=== PATIENT | female | born 2005 | race Caucasian/White ===

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

== ENCOUNTER 2024-10-27 14:57 | Outpatient (CLI) | payer OTHER, SELFPAY ==
[2024-10-27 15:31] LABS: Basophils Absolute Auto 0.1 K/mm3 (0.0-0.1); Basophils Percent Auto 0.6 % (0.2-1.2); Eosinophils Absolute Auto 0.1 K/mm3 (0-0.3); Eosinophils Percent Auto 0.6 % (0-4.4); Hematocrit 36.2 % (37.0-47.0); Hemoglobin 12.8 g/dL (12.0-15.0); Immature Granulocyte Absolute 0.18 K/mm3 (0.00-0.031); Immature Granulocyte Percent A 1.7 % (0-0.5); Lymphocytes Absolute Auto 2.53 K/mm3 (0.9-3.2); Lymphocytes Percent Auto 23.7 % (18.3-44.2); Mean Corpuscular HGB Conc 35.4 g/dl (32-36); Mean Corpuscular Hemoglobin 31.8 pg (26-34); Mean Corpuscular Volume 89.8 fl (80-100); Mean Platelet Volume 9.4 fl (7.4-10.4); Monocytes Absolute Auto 0.7 K/mm3 (0.1-0.6); Monocytes Percent Auto 6.4 % (2.6-8.5); Neutrophils Absolute Auto 7.2 K/mm3 (1.3-6.7); Platelet Count Result 331 k/mm3 (150-375); Red Blood Count 4.03 M/mm3 (4.2-5.4); Red Cell Distribution Width 12.5 % (11.5-14.5); White Blood Count 10.7 K/mm3 (4.5-10.0)
--- OUTSIDE RECORDS SUMMARY | 2024-10-27 15:45 | XMS_ITS | Patient Health Summary ---
Author Organization [facility] Address [address] [place] [address] Care Team Providers Care Belt Maker Helper Name Role Phone Unavailable Primary Care Provider Unavailabl e Note from [facility],non-owned Affiliates and Associated Physician Practices is amultiple site organization consisting of ambulatory clinics and hospital sitesin [place], [place], [place] and [place]. This disclosure is being madepursuant to the Care Everywhere program and may not contain all information available regarding this patient. Last updated 18.[facility] [employer] Allergies * Loratadine(Anaphylaxis) -High Criticality Medications * Be aware that medications may not be up to date on this document. Alwaysverify current medications with the patient. * ARIPiprazole (Abilify) 2 MG tablet(Started 05/19/2022) Take 1 (one) tablet by mouth once daily Reasons: MIXED BIPOLAR AFFECTIVE DISORDER 1 refill by 05/18/2023 Active Problems Problem Noted Date Diagnosed Date Major depressive disorder, r emission status unspecified, unspecified whether recurrent 05/15/2022 Social History Tobacco Use Types Packs/Day Years Used Date Smoking Tobacco: Never Smokeless Tobacco: Never Alcohol Use Standard Drinks/Week Comments Never 0 (1 standard drink = 0.6 oz pur e alcohol) AUDIT-C Answer Date Recorded Q1: How often do you have a drink containing alcohol? Never 05/15/2022 Q2: How many drinks containi ng alcohol do you have on a typical day when you are drinking? Patient does not drink Q3: How often do you have si x or more drinks on one occasion? Never 05/15/2022 PHQ-2 Answer Date Recorded PHQ2 TOTAL SCORE 3 05/13/2022 Sex and Gender Information Value Date Recorded Sex Assigned at Not on file Gender Identity Not on file Sexual Orientation Not on file Last Filed Vital Signs Vital Sign Reading Time Taken Comments Blood Pressure 109/64 05/18/2022 4:12 PM CDT Pulse 59 05/18/2022 4:12 PM CDT Temperature 36.4 ??C (97.5 ??F) 05/18/2022 4:12 PM CD T Respiratory Rate 16 05/18/2022 4:12 PM CDT Oxygen Saturation 98% 05/18/2022 4:12 PM CDT Inhaled Oxygen Concentration - - Weight 55.8 kg (123 lb) 05/16/2022 2:00 PM CDT Height 158.8 cm (5' 2.5 ) 05/16/2022 2:00 PM CDT Body Mass Index 22.14 05/16/2022 2:00 PM CDT Procedures * CARDIAC RHYTHM STRIP ORDER(Performed 08/12/2022) * SYPHILIS ANTIBODY CASCADING REFLEX(Performed 2022) * HIV-1 HIV-2 ANTIBODY + HIV P24 AG PANEL(Performed 2022) * TRICHOMONAS VAGINALIS AMPLIFIED PROBE(Performed 05/16/2022) * CHLAMYDIA + GC AMPLIFIED PROBE(Performed 05/16/2022) * URINALYSIS REFLEX TO MICROSCOPIC NO CULTURE(Performed 05/16/2022) * LIPID PROFILE(Performed 05/16/2022) * HEMOGLOBIN A1C(Performed 05/16/2022) * COMPREHENSIVE METABOLIC PANEL(Performed 05/16/2022) * CBC W AUTO DIFFERENTIAL(Performed 05/16/2022) * EKG 15-LEAD(Performed 05/13/2022) Performed for Ingestion of toxic substance * HCG URINE QUALITATIVE - POCT (IP) INTERFACED(Performed 05/13/2022) * URINE DRUG SCREEN IMMUNOASSAY(Performed 05/13/2022) * DRUG SCREEN TOX COMPREHESIVE PANEL(Performed 05/13/2022) * COMPREHENSIVE METABOLIC PANEL(Performed 05/13/2022) * SALICYLATE LEVEL BLOOD(Performed 05/13/2022) * ALCOHOL ETHYL BLOOD(Performed 05/13/2022) * ACETAMINOPHEN LEVEL(Performed 05/13/2022) * HCG URINE QUAL POCT NOTIFICATION(Performed 05/13/2022) Results * CARDIAC RHYTHM STRIP ORDER (08/12/2022 9:01 PM RESEARCH ASST) Narrative 08/12/2022 9:01 PM RESEARCH ASST Ordered by an unspecified provider. Scanned Document CARDIAC SERVICES ORD ERABLES * SYPHILIS ANTIBODY CASCADING REFLEX (2022 6:54 AM CDT) Treponema pallidum Antibody Non Reactive Non Reactive 2022 10:31 AM CDT [facility] Comment: No Laboratory evidence of syphilis infection. ?? Note: ??Circulating antibodies may be low or undetectable in early infection. ??If recent exposure is suspected, re-draw sample in 2-4 weeks and repeat testing. Blood BLOOD SPECIMEN / Unknown Venipuncture / Unknown 2022 6:54 AM CDT 2022 8:58 AM CDT Cinthya Julian MD LAB - SEROLOGY ORDNakul BRUMFIELD Performing Organization Address City/[facility]/ZIP Co de Phone Number [facility] [address] [place] [address] * HIV-1 HIV-2 ANTIBODY + HIV P24 AG PANEL (2022 6:54 AM CDT) HIV1/2 Ab + P24 Ag Non Reactive Non Reactive 2022 3:23 PM CDT [facility] Blood BLOOD SPECIMEN / Unknown Venipuncture / Unknown 2022 6:54 AM CDT 2022 8:59 AM CDT Narrative [facility] - 2022 3:23 PM CDT No Laboratory evidence of HIV infection. Cinthya Julian MD LAB - CHEMISTRY ORD ERABLES [facility] [address] [place] [address] * TRICHOMONAS VAGINALIS AMPLIFIED PROBE (05/16/2022 8:45 PM CDT) Trichomonas vaginalis Amplified Probe Negative Negative 2022 1:15 PM CDT [facility]CRO[facility] Microbiology URINE / Unknown 05/16/2022 8 :45 PM CDT 05/16/2022 8:45 PM CDT Narrative [facility]CRO[facility] - 2022 1:15 PM CDT This test was developed and its performance characteristics determined by the [facility], [facility]. Urine specimens tested by the [facility] have not been cleared or approved by the U.S. Food and Drug Administration (FDA). The laboratory is regulated under the Clinical Laboratory Improvement Amendments (CLIA) as qualified to perform high-complexity testing. This test is used for clinical purposes. It should not be regarded as investigational or for research. Results based on detection/no detection of ribosomal RNA by amplified method. Cinthya Julian MD LAB - MICROBIOLOGY ORDERABLES Performing Organization Address City/[facility]/ZIP Co de Phone Number [facility]CROBIOLOGY [address] [place] [address], [facility] [phone] * CHLAMYDIA + GC AMPLIFIED PROBE (STL) (05/16/2022 8:45 PM CDT) Chlamydia Amplified Probe Negative Negative 2022 1:15 PM CDT [facility]CRO[facility] GC Amplified Probe Negative Negative 2022 1:15 PM CDT [facility] Microbiology URINE / Unknown 05/16/2022 8 :45 PM CDT 05/16/2022 8:45 PM CDT Narrative [facility]CROBIOLOG[facility] - 2022 1:15 PM CDT Results based on detection/no detection of ribosomal RNA by amplified method. Cinthya Julian MD LAB - MICROBIOLOGY ORDERABLES Performing Organization Address City/[facility]/ZIP Co de Phone Number [facility]CRO[facility] [address] [place] [address], [facility] [phone] * (ABNORMAL) URINALYSIS REFLEX TO MICROSCOPIC NO CULTURE (05/16/2022 12:50 PM CDT) Color UA Viviane(A) Straw, Yellow 05/16/2022 2:38 PM CDT [facility] Clarity UA Turbid(A) Clear 05/16/2022 2:38 PM CDT [facility] Glucose UA Negative Negative 05/16/2022 2:38 PM CDT [facility] Bilirubin UA Negative Negative 05/16/2022 2:38 PM CDT [facility] Ketone UA Trace(A) Negative 05/16/2022 2:38 PM CDT [facility] Specific [place] UA 1.024 1.005 - 1.030 05/16/2022 2:38 PM CDT [facility] Blood UA Negative Negative 05/16/2022 2:38 PM CDT [facility] pH UA 5.0 5.0 - 8.0 pH 05/16/2022 2:38 PM CDT [facility] Protein UA Negative Negative 05/16/2022 2:38 PM CDT [facility] Urobilinogen UA Negative Negative mg/dL 05/16/2022 2:38 PM CDT [facility] Nitrite UA Negative Negative 05/16/2022 2:38 PM CDT [facility] Leukocyte UA Negative Negative 05/16/2022 2:38 PM CDT [facility] Urine Microscopy Urine microscopy not indicated 05/16/2022 2:38 PM CDT [facility] Urine URINE SPECIMEN OBTAINED BY CLEAN CATCH PROCEDURE / Unknown Collection / Unknown 05/16/2022 12:50 PM CDT 05/16/2022 2:31 PM CDT Narrative [facility] - 05/16/2022 2:38 PM CDT Jaylen Chaves MD LAB - URINA LYSIS ORDERABLES [facility] [address] [place] [address] * HEMOGLOBIN A1C (05/16/2022 7:32 AM CDT) Hemoglobin A1c 5.0 <5.7 % 05/16/2022 10:24 AM CDT [facility] Estimated Average Glucose 97 mg/dL 05/16/2022 10:24 AM CDT [facility] Blood BLOOD SPECIMEN / Unknown Venipuncture / Unknown 05/16/2022 7:32 AM CDT 05/16/2022 8:58 AM CDT [facility] - 05/16/2022 10:24 AM CDT HbA1c Interpretation: Normal: < 5.7% Pre-diabetes: 5.7-6.4% Diabetes: Equal to or greater than 6.5% Test results diagnostic of diabetes should be repeated for confirmation. Treatment target values recommended by ADA and other clinical organizations should be used to evaluate metabolic control in patients. This test should not replace glucose testing for patients with Type 1 diabetes, pediatric patients, or women. ??Falsely low HbA1c results may be observed in patients with clinical conditions that shorten erythrocyte life span or decrease mean erythrocyte age such as the presence of unstable hemoglobin variants, elevated hemoglobin F level or other causes of hemolytic anemia. ??HbA1c may not accurately reflect glycemic control when clinical conditions that affect erythrocyte survival are present. ??Severe Iron deficiency anemia may yield falsely high results. ??Hemoglobin A1c assay should not be used to diagnose or monitor diabetes in patients with malignancy, recent blood transfusion, chronic kidney or liver disease. ?? This method may yield falsely low results when hemoglobin (HbF) exceeds 5% in the specimen. The [employer] assay for the measurement of HbA1c is a National Glycohemoglobin Standardization Program (NGSP) certified method. Jaylen Chaves MD LAB - CHEMI STRY ORDERABLES [facility] [address] [place], [place] [id number] * (ABNORMAL) CBC W AUTO DIFFERENTIAL (05/16/2022 7:32 AM CDT) [facility] WBC 8.9 4.5 - 11.0 x10E9/L 05/16/2022 10:15 AM CDT [facility] WBC Corrected 05/16/2022 10:15 AM CDT [facility] RBC 4.81 4.10 - 5.10 x10E12/L 05/16/2022 10:15 AM CDT [facility] Hemoglobin 14.4 12.0 - 16.0 gm/dL 05/16/2022 10:15 AM CDT [facility] Hematocrit 42.5 36.0 - 47.0 % 05/16/2022 10:15 AM CDT [facility] MCV 88.4 78.0 - 102.0 fl 05/16/2022 [facility] MCH 29.9 25.0 - 35.0 pg 05/16/2022 10:15 AM [facility] MCHC 33.9 31.0 - 37.0 gm/dL 05/16/2022 10:15 AM [facility] Platelet Count 419(H) 100 - 400 x10E9/L 05/16/2022 10:15 AM [facility] RDW-CV 12.0 11.5 - 14.0 % 05/16/2022 10:15 AM [facility] MPV 9.7(H) 6.0 - 9.5 fl 05/16/2022 10:15 AM [facility] Neutrophils % 39.3 31.0 - 78.0 % 05/16/2022 10:15 AM [facility] Lymphocytes % 50.2 13.0 - 54.0 % 05/16/2022 10:15 AM [facility] Monocytes % 8.5 4.0 - 13.0 % 05/16/2022 10:15 AM [facility] Eosinophils % 1.0 0.0 - 8.0 % 05/16/2022 10:15 AM [facility] Basophils % 0.8 % 05/16/2022 10:15 AM [facility] Immature Granulocytes 0.2 % 05/16/2022 10:15 AM [facility] Neutrophil Absolute 3.50 1.4 - 8.58 x10E9/L 05/16/2022 10:15 AM [facility] Lymphocytes Absolute 4.48 0.59 - 5.94 x10E9/L 05/16/2022 10:15 AM [facility] Monocytes Absolute 0.76 0.18 - 1.43 x10E9/L 05/16/2022 10:15 AM [facility] Eosinophils Absolute 0.09 0 - 0.88 x10E9/L 05/16/2022 10:15 AM [facility] Basophils Absolute 0.07 0 - 0.22 x10E9/L 05/16/2022 10:15 AM [facility] Immature Granulocytes Absolute 0.02 0 - 0.11 x10E9/L 05/16/2022 10:15 AM [facility] nRBC Auto 0 /100 WBC 05/16/2022 10:15 AM [facility] Blood BLOOD SPECIMEN / Unknown Venipuncture / Unknown 05/16/2022 7:32 AM CDT 05/16/2022 8:58 AM CDT Jaylen Chaves MD LAB - HEMAT OLOGY ORDERABLES [facility] [address] [place] [address] * (ABNORMAL) COMPREHENSIVE METABOLIC PANEL (05/16/2022 7:32 AM CDT) Only the most recent of2 resultswithin the time period is included. Glucose 77 70 - 105 mg/dL 05/16/2022 10:18 AM [facility] Sodium 140 136 - 145 mmol/L 05/16/2022 10:18 AM [facility] Potassium 3.8 3.5 - 5.1 mmol/L 05/16/2022 10:18 AM [facility] Chloride 103 98 - 107 mmol/L 05/16/2022 10:18 AM [facility] CO2 23 20 - 28 mmol/L 05/16/2022 10:18 AM [facility] Calcium 10.2 8.4 - 10.4 mg/dL 05/16/2022 10:18 AM [facility] Anion Gap 14 8 - 18 mmol/L 05/16/2022 10:18 AM [facility] BUN 8 7 - 18.7 mg/dL 05/16/2022 10:18 AM [facility] Creatinine 0.81 0.57 - 1.11 mg/dL 05/16/2022 10:18 AM [facility] Alkaline Phosphatase 73(L) 100 - 390 U/L 05/16/2022 10:18 AM [facility] ALT 10 0 - 61 U/L 05/16/2022 10:18 AM [facility] AST 20 5 - 34 U/L 05/16/2022 10:18 AM CDT [facility] Protein Total 8.3 6.4 - 8.3 gm/dL 05/16/2022 10:18 AM CDT [facility] Albumin 4.8 3.4 - 5.0 gm/dL 05/16/2022 10:18 AM CDT [facility] Bilirubin Total 0.8 0.2 - 1.2 mg/dL 05/16/2022 10:18 AM CDT [facility] eGFR by CKD-EPI 10:18 AM CDT [facility] Comment:eGFR calculations ar e not performed for children <18yrs old. Blood BLOOD SPECIMEN / Unknown Venipuncture / Unknown 05/16/2022 7:32 AM CDT 05/16/2022 9:00 AM CDT Jaylen Chaves MD LAB - CHEMI STRY ORDERABLES [facility] [address] [place] [address] * LIPID PROFILE (05/16/2022 7:32 AM CDT) Cholesterol 160 <200 mg/dL 05/16/2022 10:25 AM CDT [facility] Triglycerides 58 <150 mg/dL 05/16/2022 10:25 AM CDT [facility] HDL Cholesterol 48 >40 mg/dL 2 10:25 AM CDT [facility] LDL Calculated 100 <130 mg/dL 05/16/2022 10:25 AM CDT [facility] VLDL Calculated 12 <=30 mg/dL 2 10:25 AM CDT [facility] Chol HDL Ratio 3.3 <4.5 05/16/2022 10:25 AM CDT [facility] LDL/HDL Ratio 2.1 <5.0 05/16/2022 10:25 AM CDT [facility] Blood BLOOD SPECIMEN / Unknown Venipuncture / Unknown 05/16/2022 7:32 AM CDT 05/16/2022 9:01 AM CDT Jaylen Chaves MD LAB - CHEMI STRY ORDERABLES [facility] [address] [place] [address] * EKG 15-LEAD (05/13/2022 3:51 PM CDT) Pathologist [facility] Ventricular Rate 51 BPM CG MUSE Atrial Rate 51 BPM CG MUSE P-R Interval 142 ms CG MUSE QRS Duration ms 84 ms CG MUSE Q-T Interval ms 464 ms CG MUSE QTC Calculation (Bezet) 427 ms CG MUSE Calculated P [place] 27 degrees CG MUSE Calculated R [place] 70 degrees CG MUSE Calculated T [place] 41 degrees CG MUSE Interpretation EKG Sinus bradycardia with sinus arrhythmia No previous ECGs available Confirmed by MD Danyel, Valencia ([id number]) on 05/14/2022 10:29:25 AM CG MUSE 05/13/2022 3:51 PM CDT 05/14/2022 10:29 AM CDT Lucita French MD ECG ORDERABLES Performing Organization Address City/[facility]/ZIP Co de Phone Number CG MUSE * HCG URINE QUALITATIVE - POCT (IP) INTERFACED (05/13/2022 3:17 PM CDT) Pathologist [facility] HCG Qual Urine Negative Negative 05/13/2022 3:28 PM CDT [facility] Urine URINE / Unknown 05/13/2022 3 :17 PM CDT 05/13/2022 3:28 PM CDT Lucita French MD LAB - POINT OF C ARE ORDERABLES [facility] [address] [place] [id number] * DRUG SCREEN TOX COMPREHESIVE URINE PANEL (05/13/2022 3:13 PM CDT) [facility] Drug Screen Urine Comprehensive Panel 05/15/2022 11:55 AM CDT [facility]XIC[facility]Y LABORATORY Urine URINE / Unknown Collection / Unknown 05/13/2022 3:13 PM CDT 05/13/2022 3:23 PM CDT Lucita French MD LAB - URINE CHEM ISTRY ORDERABLES [facility] TOXICOLOGY [facility]ORATORY ATTN Dr Cooper Rucker [address] * (ABNORMAL) URINE DRUG SCREEN IMMUNOASSAY (05/13/2022 3:13 PM CDT) [facility] Amphetamines Screen Urine Negative Negative : < 1000 ng/mL 05/13/2022 3:46 PM CDT [facility] Barbiturates Screen Urine Negative Negative : < 200 ng/mL 05/13/2022 3:46 PM CDT [facility] Benzodiazepine Screen Urine Negative Negative : < 200 ng/mL 05/13/2022 3:46 PM CDT [facility] Opiates Urine Negative Negative : < 300 ng/mL 05/13/2022 3:46 PM [facility] Cocaine Metabolites Urine Negative Negative : < 300 ng/mL 05/13/2022 3:46 PM CDT [facility] Phencyclidine Screen Urine Negative Negative : < 25 ng/ml 05/13/2022 3:46 PM [facility] Cannabinoids Screen Urine Positive(A) Negative : <50 ng/mL 05/13/2022 3:46 PM T [facility] Comment:Positive urine canna binoids (THC) screening results should be confirmed by another generally accepted non-immunological method such as gas chromatography or mass spectrometry. Methadone Screen Urine Negative Negative : < 300 ng/mL 05/13/2022 3:46 PM CDT [facility] Fentanyl Screen Urine Negative Negative : <1.5 ng/mL 05/13/2022 3:46 PM [facility] Urine URINE / Unknown Collection / Unknown 05/13/2022 3:13 PM CDT 05/13/2022 3:23 PM CDT Narrative [facility] - 05/13/2022 3:46 PM CDT The Urine Toxicology Screening Panel does not screen for Propoxyphene, Meprobamate, Carisoprodol, Trazodone, [id number]-cctlcmr medications and/or volatiles (Acetone, Isopropanol, Methanol or Ethylene Glycol). Ethanol, Salicylate, Acetaminophen, Tricyclic Antidepressants and several therapeutic drugs may be individually assayed in serum or plasma specimen. Toxicology testing by the [facility] is an aid to medical diagnosis and treatment of patients. No documented chain of custody was maintained. Results are intended to be used for clinical purposes only. ? Lucita French MD LAB - URINE CHEM ISTRY ORDERABLES Performing Organization Address City/State/[facility] Co de Phone Number [facility] [address] [place] [phone], [facility] [phone] * ALCOHOL ETHYL BLOOD (05/13/2022 3:01 PM CDT) Ethanol (mg/dL) <10 <10 mg/dL 3:37 PM CDT [facility] Ethanol Calculated (g/dL) <0.010 <=0.010 g/dL 05/13/2022 3:37 PM CDT [facility] Blood BLOOD SPECIMEN / Unknown Venipuncture / Unknown 05/13/2022 3:01 PM CDT 05/13/2022 3:11 PM CDT Narrative [facility] - 05/13/2022 3:37 PM CDT Ethanol Interp <10: None Detected. Depression of BLAST FURNACE BLOWER: >100 mg/dl Potentially Critical: >250 mg/dl Potentially Fatal >400 mg/dl Ethanol in the patient's blood will contribute to the osmolar gap. Ethanol's contribution to the osmolar gap can be estimated by dividing the concentration of ethanol in mg/dL by 4.6. This test is for clinical use only and does not equal a HI for legal purposes. Lucita French MD LAB - CHEMISTRY ORDERABLES Performing Organization Address [facility]/ZIP Co de Phone Number [address] [phone], [facility] [phone] * (ABNORMAL) SALICYLATE LEVEL BLOOD (05/13/2022 3:01 PM CDT) Salicylate <5(L) 15 - 30 mg/dL 05/13/2022 3:37 PM CDT [facility] Blood BLOOD SPECIMEN / Unknown Venipuncture / Unknown 05/13/2022 3:01 PM CDT 05/13/2022 3:11 PM CDT [facility] - 05/13/2022 3:37 PM CDT This test is not intended for use with low-dose aspirin therapy. Most patients on low-dose aspirin for cardiovascular prophylaxis will have serum concentrations near or below the lower limit of the analytical range. Lucita French MD LAB - CHEMISTRY ORDERABLES Performing Organization Address [facility] Co de Phone Number [address] [phone], [facility] [phone] * ACETAMINOPHEN LEVEL (05/13/2022 3:01 PM CDT) Acetaminophen <3.0 <3.0 ug/mL 05/13/2022 3:37 PM CDT [facility] Blood BLOOD SPECIMEN / Unknown Venipuncture / Unknown 05/13/2022 3:01 PM CDT 05/13/2022 3:11 PM CDT [facility] - 05/13/2022 3:37 PM CDT Acetaminophen Toxicity Levels (Hours Post Ingestion): ? >200 ug/mL at 4 hours ? >100 ug/mL at 8 hours ? >50 ug/mL at 12 hours For acute ingestion, please refer to Acetaminophen nomogram to determine the risk of toxicity based on time since ingestion and acetaminophen level (see link provided). Note the nomogram disclaimer. WARNING: Assessing the potential toxicity of an acetaminophen level on a standard risk nomogram must take into consideration many factors including any uncertainty of the time since ingestion or the possibility of other medications that may alter the peak level. Contact the [facility] at or reserved for healthcare professionals to assist you in evaluating potentially toxic acetaminophen levels. Lucita French MD LAB - CHEMISTRY ORDERABLES Performing Organization Address City/[facility]/ZIP Co de Phone Number [facility] [address] [place] [address], [facility] [phone] * HCG URINE QUAL POCT NOTIFICATION (05/13/2022 2:43 PM CDT) Comment Notification Label Only - See Separate Report 05/13/2022 4:03 PM CDT [facility] Urine URINE / Unknown 05/13/2022 2 :43 PM CDT 05/13/2022 2:44 PM CDT Lucita French MD LAB - URINALYSIS ORDERABLES Performing Organization Address [facility]/ZIP Co de Phone Number [facility] [place] [address]
--- OUTSIDE RECORDS SUMMARY | 2024-10-27 15:45 | XMS_ITS | Data Portability ---
Author Organization [facility] Address [address] [place] [address] [place] [address] Assessment No assessment recorded. Plan of Treatment Reminders Order Date Submit Date Provider Last Modified By Organization Details Last Modified Time Details Appointments None record ed. Lab None record ed. Referral None record ed. Procedures None record ed. Surgeries None record ed. Imaging None record ed. Medication Orders None record ed. Patient TargetsNo targets recorded. Patient InstructionsNo instructions recorded. Reason for Referral None Reported. Medical Equipment None Reported. Medications Name Sig Start Date Stop Date Status Note LastModified by Organization Details LastModified Time metronidazole 500 mg tablet TAKE 1 TABLET BY MOUTH EVERY 12 HOURS active Not Available Not Available No t Available metoclopramide 5 mg tablet TAKE 1 TABLET BY MOUTH DAILY active Not Available Not Available No t Available escitalopram 10 mg tablet TAKE 1 TABLET BY MOUTH DAILY IN THE MORNING active Not Available Not Available No t Available Vitals None Recorded Social History None recorded. Functional Status None recorded. Mental Status None recorded. Family History Nothing Reported. Medical History No medical history recorded. Gynecological HistoryNo gynecological history recorded. Obstetrics History GPAL:G 0 P 0 0 0 0 Past Encounters Encounter ID Performer Location Encounter Start Date Encounter Closed Date Diagnosis/Indication Diagnosis SNOMED-CT Code Diagnosis ICD10 Code Diagnosis Note [id number] MARCI Valencia [facility]wick [address] [address] 09/30/2024 17:00:48 10/05/2024 15:45:07 Left without being seen [id number] 9102 Z53.21 Health Concerns Section Related Observation LastModified by Organization Detai ls LastModified Time None Recorded Concern Status LastModified by Organization Details LastModified Time None Recorded Advance Directives Directive None Recorded Payers Encounter Date Sequence Insurance Name Policy Number Policy Lamar Covered Member ID Lamar Member ID Guarantor Name 09/30/2024 1 [facility] 03/29/21 (MEDICAID REPLACEMENT - HMO) Sarah Kelly [id number] Sarah Kelly OBGyn Episode No OBEpisode recorded.
--- OUTSIDE RECORDS SUMMARY | 2024-10-27 15:46 | XMS_ITS | Referral Summary ---
Author Organization [facility] Address [address] [place] [address] Care Team Providers Care Gig Tender Name Role Phone Unavailable Primary Care Provider Unavailabl e Source Comments [facility],non-owned Affiliates and Associated Physician Practices is amultiple site organization consisting of ambulatory clinics and hospital sitesin [place], [place], [place] and [place]. This disclosure is being madepursuant to the Care Everywhere program and may not contain all information available regarding this patient. Last updated 18.[facility] Allergies Active Allergy Reactions Criticality Noted Date Comments Loratadine Anaphylaxis High 05/13/2022 Medications * Be aware that medications may not be up to date on this document. Alwaysverify current medications with the patient. Medication Sig Dispensed Refills Start Date End Date Status ARIPiprazole (Abilify) 2 MG tabletIndications:Mi xed Bipolar Affective Disorder Take 1 (one) tablet by mouth once daily Reasons: MIXED BIPOLAR AFFECTIVE DISORDER 30 tablet 1 05/19/2022 Active Active Problems Problem Noted Date Diagnosed Date Major depressive disorder, r emission status unspecified, unspecified whether recurrent 05/15/2022 Immunizations Name Administration Dates Next Due Covid Pfizer primary Monoval ent 12+ yr 0.3ml 2022(Deferred: Consent needed) Social History Tobacco Use Types Packs/Day Years [...] Mass Index 22.14 05/16/2022 2:00 PM CDT Functional Status Functional Status Response Date of Assess ment Is person deaf or have serious hearing difficult y? No 05/18/2022 Is person blind or have serious difficulty seein g? No 05/18/2022 Does person have serious dif ficulty walking/climbing stairs? No 05/18/2022 Does person have difficulty dressing/bathing? No 05/18/2022 Does person have difficulty doing errands alone? No 05/18/2022 Cognitive Status Response Date of Assessm ent Does person have difficulty concentrating/remembering/making decisions? No 05/18/2022 Plan of Treatment Not on file Procedures Procedure Name Priority Date/Time Associated Diagnosis Comments HIV-1 HIV-2 ANTIBODY + HIV P24 AG PANEL AM Draw 2022 6:54 AM CDT CHLAMYDIA + GC AMPLIFIED PROBE Routine 05/16/2022 8:45 PM CDT from Last 3 Months or Most Recently Relevant to Health Maintenance Results * HIV-1 HIV-2 ANTIBODY + HIV P24 AG PANEL (2022 6:54 AM CDT) HIV1/2 Ab + P24 Ag Non Reactive Non Reactive 2022 3:23 PM CDT [facility] Blood BLOOD SPECIMEN / Unknown Venipuncture / Unknown 2022 6:54 AM CDT 2022 8:59 AM CDT Narrative [facility] - 2022 3:23 PM CDT No Laboratory evidence of HIV infection. Cinthya Julian MD LAB - CHEMISTRY ORD ERABLES [facility] [address] [place] [address] * CHLAMYDIA + GC AMPLIFIED PROBE (STL) (05/16/2022 8:45 PM CDT) [facility] Chlamydia Amplified Probe Negative Negative 2022 1:15 PM CDT [facility] GC Amplified Probe Negative Negative 2022 1:15 PM CDT [facility] Microbiology URINE / Unknown 05/16/2022 8 :45 PM CDT 05/16/2022 8:45 PM CDT Narrative [facility] - 2022 1:15 PM CDT Results based on detection/no detection of ribosomal RNA by amplified method. Cinthya Julian MD LAB - MICROBIOLOGY ORDERABLES Performing Organization Address City/[facility]/ZIP Co de Phone Number [facility] [address] [place] [address], [facility] [phone] from Last 3 Months or Most Recently Relevant to Health Maintenance Advance Directives * Full Code (Latest Code Status on File) Date Activated Date Inactivated Comments 05/15/2022 2:16 PM 05/18/2022 8:59 PM
--- OUTSIDE RECORDS SUMMARY | 2024-10-27 15:46 | XMS_ITS | Clinical Summary ---
Author Organization [facility] Address [address] [place] [address] Care Team Providers Care Flagger Name Role Phone Unavailable Primary Care Provider Unavailabl e Social History Tobacco Use Types Packs/Day Years Used Date Smoking Tobacco: Never Assessed Comments Unknown Sex and Gender Information Value Date Recorded Sex Assigned at Not on file Legal Sex Female 2:04 PM CDT Gender Identity Not on file Sexual Orientation Not on file Plan of Treatment Health Maintenance Due Date Last Done Comments Hepatitis C Virus (HCV) Screening 2004 TdaP Immunization 2004 Human Papillomavirus (HPV) Immunization (1 - 3-dose series) 2019 Meningococcal B Immunization (1 of 2 - Standard) 2020 Hepatitis B Immunization (1 of 3 - 19+ 3-dose series) 2023 Influenza Immunization (#1) 2024 SARS-COV-2 Immunization ( - season) 2024 Respiratory Syncytial Virus (RSV) Immunization (Adult) (1 - 1-dose 75+ series) 2079 Meningococcal Immunization (ACWY) Aged Out No longer eligible based on patient's age to complete this topic Pneumococcal Immunization Combined Aged Out No longer eligible based on patient's age to complete this topic Rotavirus Immunization Aged Out No lo nger eligible based on patient's age to complete this topic
--- OUTSIDE RECORDS SUMMARY | 2024-10-27 15:46 | XMS_ITS | Clinical Summary ---
Author Organization [facility] [employer] Address [address] [place] [address] Care Team Providers Care Unified Communications Engineer Name Role Phone Unavailable Primary Care Provider Unavailabl e Source Comments [facility] [employer],non-owned Affiliates and Associated Physician Practices is amultiple site organization consisting of ambulatory clinics and hospital sitesin [place], [place], [place] and [place]. This disclosure is being madepursuant to the Care Everywhere program and may not contain all information available regarding this patient. Last updated 18.[facility] [employer] Allergies Active Allergy Reactions Criticality Noted Date [...] Mass Index 22.14 05/16/2022 2:00 PM CDT Plan of Treatment Health Maintenance Due Date Last Done Comments HPV VACCINE (1 - 3-dose series) 2019 MENINGOCOCCAL (Group B) VACCINE (1 of 2 - Standard) 2020 HEPATITIS C SCREENING 05/13/2022 CHLAMYDIA/GONORRHEA SCREENING 05/16/2023 05/16/2022 DTAP/TDAP/TD VACCINES (1 - Tdap) 2023 HEPATITIS B VACCINE (1 of 3 - 19+ 3-dose series) 2023 COVID-19 VACCINE (1 - 2023-2 5 season) 2024 INFLUENZA VACCINE (#1) 2024 DEPRESSION SCREENING 09/29/2024 05/15/2022, 05/13/2022 ZOSTER VACCINE (1 of 2) 2054 HIV SCREENING Completed 2022 HIB VACCINE Aged Out No longer eligi ble based on patient's age to complete this topic MENINGOCOCCAL VACCINE Aged Out No joi yvonne eligible based on patient's age to complete this topic PNEUMOCOCCAL VACCINE Aged Out No long er eligible based on patient's age to complete this topic Procedures Procedure Name Priority Date/Time Associated Diagnosis Comments HIV-1 HIV-2 ANTIBODY + HIV P24 AG PANEL AM Draw 2022 6:54 AM CDT CHLAMYDIA + GC AMPLIFIED PROBE Routine 05/16/2022 8:45 PM CDT from Last 3 Months or Most Recently Relevant to Health Maintenance Results * HIV-1 HIV-2 ANTIBODY + HIV P24 AG PANEL (2022 6:54 AM CDT) Pathologist [facility] HIV1/2 Ab + P24 Ag Non Reactive Non Reactive 2022 3:23 PM CDT [facility] Blood BLOOD SPECIMEN / Unknown Venipuncture / Unknown 2022 6:54 AM CDT 2022 8:59 AM CDT Narrative [facility] - 2022 3:23 PM CDT No Laboratory evidence of HIV infection. Cinthya Julian MD LAB - CHEMISTRY ORD ERABLES Performing Organization Address City/[facility]/ZIP Co de Phone Number [facility] [address] [place] [address] * CHLAMYDIA + GC AMPLIFIED PROBE (STL) (05/16/2022 8:45 PM CDT) [facility] Chlamydia Amplified Probe Negative Negative 2022 1:15 PM CDT [facility] GC Amplified Probe Negative Negative 2022 1:15 PM CDT [facility] Microbiology URINE / Unknown 05/16/2022 8 :45 PM CDT 05/16/2022 8:45 PM CDT Narrative [facility] - 2022 1:15 PM CDT Results based on detection/no detection of ribosomal RNA by amplified method. Cinthya Julian MD LAB - MICROBIOLOGY ORDERABLES [facility] [address] [place] [address], [facility] [phone] from Last 3 Months or Most Recently Relevant to Health Maintenance Advance Directives * Full Code (Latest Code Status on File) Date Activated Date Inactivated Comments 05/15/2022 2:16 PM 05/18/2022 8:59 PM
[2024-10-27 16:37] LABS: HIV 1/2 Ab P24 Ag Result Negative (Negative)
[2024-10-27 17:55] LABS: Hepatitis B Surface Antigen Negative (Negative); Rubella IgG Antibody 50.9 IU/ML
[2024-10-28 11:14] LABS: Rapid Plasma Reagin Non-Reactive (NonReactive)
[2024-10-29 03:29] LABS: CMV IgG Antibody >10.00 U/mL; Varicella IgG Antibody 5.36 S/CO
== END 2024-10-27 14:58 | disposition home or self-care (01) ==
LOC: ANHLAB 14:59
PROVIDERS: PCP Internal Medicine; Visit Provider Student in an Organized Health Care Education/Training Program
DX: N94.89 Other specified conditions associated with female genital organs and menstrual cycle (principal)
CPT/HCPCS: 36415; 85025; 85027; 86592; 86644; 86703; 86747; 86762; 86787; 86850; 86900; 86901; 87086; 87186; 87340; G0432

== ENCOUNTER 2025-01-26 10:42 | Emergency (ER) | payer OTHER, SELFPAY ==
[2025-01-26] VITALS (7 sets, daily range): BP systolic 103–128; BP diastolic 59–80; PULSE 68–90; RESP 16–20; TEMP 36.2; O2SAT 98–100
--- NOTE | ~2025-01-26 | XR_ITS ---
EXAMINATION: XR chest 2V DATE: 01/26/2025 12:08 INDICATION: Couple episodes TECHNIQUE: PA and lateral views of the chest were obtained. COMPARISON: None FINDINGS: The lungs are clear with no focal airspace opacities, pulmonary edema, pleural effusion or pneumothor ax. The cardiomediastinal silhouette is normal. Mild lower thoracic levocurvature with mild to modera te midthoracic spondylosis IMPRESSION: 1. No acute cardiopulmonary disease. Reviewed, dictated and finalized at location B.
--- NOTE | ~2025-01-26 | CT_ITS ---
History: Syncope PROCEDURE: CT head without contrast. COMPARISON: None TECHNIQUE: Axial imaging of the head performed from the skull base to the vertex without IV contrast. Sagittal a nd coronal reformations obtained. DLP: 530 mGy-cm FINDINGS: The ventricles are normal in size, shape and position. There is no mass, mass effect or midline shift. There is no abnormal extra-axial fluid collection or intracranial hemorrhage. Visualized paranasal sinuses are clear. The mastoid air cells are well aerated. No acute displaced fractures within the overlying cranium. Impression: No acute intracranial hemorrhage or suspicious mass effect. Reviewed, dictated and finalized at location A. Impression: No acute intracranial hemorrhage or suspicious mass effect.
--- NOTE | 2025-01-26 10:53 | ECG_ITS ---
Test Date: 2025-01-26 11:35:09 Measurements Intervals [facility] Rate: 74 P: 52 NM: 153 QRS: 69 QRSD: 82 T: 22 QT: 386 QTc: 429 Interpretive Statements SINUS RHYTHM POSSIBLE LEFT ATRIAL ENLARGEMENT CANNOT R/O SEPTAL INFARCT, AGE INDETERMINATE BORDERLINE T WAVE ABNORMALITY- ANT/INF LEADS BASELINE ARTIFACT- I, III, AVL ABNORMAL ECG No previous ECG available for comparison Electronically Signed On 01-26-2025 12:04:01 CDT by Zane Cramer D.O.
[2025-01-26 11:44] LABS: Basophils Absolute Auto 0.1 K/mm3 (0.0-0.1); Basophils Percent Auto 0.7 % (0.2-1.2); Eosinophils Absolute Auto 0.1 K/mm3 (0-0.3); Eosinophils Percent Auto 0.9 % (0-4.4); Hematocrit 33.6 % (37.0-47.0); Immature Granulocyte Absolute 0.23 K/mm3 (0.00-0.031); Immature Granulocyte Percent A 2.2 % (0-0.5); Lymphocytes Absolute Auto 2.87 K/mm3 (0.9-3.2); Lymphocytes Percent Auto 27.4 % (18.3-44.2); Mean Corpuscular HGB Conc 32.7 g/dl (32-36); Mean Corpuscular Hemoglobin 31.4 pg (26-34); Mean Platelet Volume 9.6 fl (7.4-10.4); Monocytes Absolute Auto 0.7 K/mm3 (0.1-0.6); Monocytes Percent Auto 6.2 % (2.6-8.5); Neutrophils Absolute Auto 6.6 K/mm3 (1.3-6.7); Neutrophils Percent Auto 62.6 % (45.5-73.1); Platelet Count Result 290 k/mm3 (150-375); Red Cell Distribution Width 12.7 % (11.5-14.5); White Blood Count 10.5 K/mm3 (4.5-10.0)
[2025-01-26 11:55] LABS: Alanine Aminotransferase 13 U/L (6-35); Albumin Level 3.9 g/dL (3.5-5.1); Alkaline Phosphatase 85 U/L (38-126); Anion Gap 4 mmol/L (4-12); Aspartate Amino Transferase 20 U/L (14-36); Bilirubin,Total 0.3 mg/dL (0.2-1.3); Blood Urea Nitrogen 4 mg/dL (7-17); Calcium 8.4 mg/dL (8.4-10.2); Carbon Dioxide 27 mmol/L (22-30); Chloride 104 mmol/L (98-107); Estimated CRCL calculation 125 ml/min; Estimated Glomerular Filt Rate > 60; Glucose 86 mg/dL (65-110); Potassium 3.6 mmol/L (3.4-5.0); Sodium 135 mmol/L (137-145)
--- OUTSIDE RECORDS SUMMARY | 2025-01-26 12:01 | XMS_ITS | Clinical Summary ---
Author Organization [facility] Address [address] [place] [address] Care Team Providers Care Ticket Printer Name Role Phone Unavailable Primary Care Provider [...]
--- OUTSIDE RECORDS SUMMARY | 2025-01-26 12:01 | XMS_ITS | Data Portability ---
Author Organization [place] [facility] [employer], Main Office Address [address] [place] [address] Care Team Providers Care Law Professor Name Role Phone LALO SINGH Primary Care Provider [phone] LALO SINGH Referring Provider Assessment Encounter Date Assessment Date Assessment LastModified by Organization Details LastModified Time 10/02/2023 10/02/2023 HPI: Patient returns. She underwent closed reduction of her right 5th metacarpal neck fracture 1 week ago. Short-arm cast was applied. She has been livan taping the fingers. She states she has not been using the hand at all for grabbing holding her other things. Physical exam: Patient's fingers are moving well there is no increased swelling. Cast is still fitting her snugly at this point. Impression: Patient has had a bit recurrence of the angulation of her right 5th metacarpal neck fracture. It is still within acceptable range. I think she probably is using the hand more than 1 she is stating. I caution her that if she uses the hand too much she may cause we angulation to the point of requiring surgery. We will see her in a week with new x-rays in cast. Original injury was on 09/24 Not available 10/02/2023 14:12:08 10/08/2023 10/08/2023 HPI: 18-year-old female she is here for follow-up of her right 5th metacarpal neck fracture. She had closed reduction done on 09/25. She is now 15 days out from original injury. Physical exam: Patient's cast is fitting her well. She has the 4th and 5th fingers livan-taped. Impression: Patient's right 5th metacarpal neck fracture still has acceptable alignment. There has been no change in the mild angulation from last week. Patient states that she there is a possibility that she was before doing x-rays. She was agreeable to sign way for. She was protected with lead shielding. This point we will plan on seeing her back in 3 and half weeks with cast removal. If she is at that time we will have to discuss whether not x-rays need to be done. Not available 10/08/2023 14:23:01 10/30/2023 10/30/2023 HPI: Patient returns. She is 33 he is now out from her right 5th metacarpal fracture. She underwent closed reduction in the office with casting. She has been in a cast for the last month. Physical exam: Patient is not swell in the hand or fingers. She has full extension of all of her fingers. She does have good flexion but is not able to make a tight fist. She has very faint tenderness to palpation the 5th metacarpal neck area. Impression: Patient has right 5th metacarpal neck fracture is healing. She does have mild angulation which is very acceptable. She does have some early callus but not good bridging strong callus yet. Talked about options with her and she would like to have a brace. She does have anger issues and states that sometimes she still tries to hit people has thinking be best for her to have a brace to hopefully protect the fracture to allow to continue to heal. We will see her back in 3 weeks with new x-rays. Not available 10/30/2023 10:53:01 11/20/2023 11/20/2023 Patient returns now 8 weeks after right 5th metacarpal neck fracture presented with severe volar angulation. Closed reduction was successful. At last visit 3 weeks ago she had early healing with about 15 of volar angulation which is very acceptable. X-rays of her right hand today show no change in alignment 15 . She does not have a great deal of external callus the fracture radiographically is united. On exam today she has full extension of the MP and IP joints. I can hyperextend the MP joints about 15 passively. On flexion she has about a 1 cm flexion lag in the 5th finger mostly diminished the IP joint movement in flexion on making a fist. There is no tenderness the fracture site no swelling or warmth. Impression: Early union right 5th metacarpal neck fracture. Alignment is very acceptable incompatible with normal function. I had a long discussion with her about the risk of re fracture which is present for 1 year after the fracture and is impaired that she avoid pounding or punching with her right hand as re fracture will occur and she understands this. She has been working but only using her right hand for light activities. At this point I have given her six-pack and handed wrist exercise instruction sheets we will lower to gradually increase use of her right hand as her comfort allows. If she has further problems I am happy to see her back. 20 minutes were spent total care this patient more than half the time spent in [id number] care. Not available 11/20/2023 10:59:13 06/17/2024 06/17/2024 patient has what appears to be flexor tenosynovitis of the right 5th finger tendon sheath. She has no too locking or catching now occasionally will have some by her report. She also may have mild cubital tunnel syndrome of the right upper extremity. We talked about using a night brace she is going to pick 1 up use this to sleep to keep her elbow extended. I offered her a shot of cortisone into the 5th flexor tendon sheath of the right hand however she declined she would rather take oral steroids. We will get her set up for this prescription I will see her back in a month we will also do some physical therapy this was ordered today as well. I will see her back for her next recheck if her symptoms continue we will talk more about doing a shot of cortisone. She voiced understanding agrees above plan she will call for any further problems difficulties or questions. [email or web address] Not available 06/17/2024 10:14:16 Plan of Treatment Reminders Order Date Submit Date Provider Last Modified By Organization Details Last Modified Time Details Appointments None recorded. Lab None recorded. Referral occupationa l therapist referral - please contact patient to schedule 2023 024 [email or web address] [facility], [address], [place], [address], 11:32:42 Procedures None recorded. Surgeries None recorded. Imaging XR, hand 2023 024 [facility], [address] [place] [address], [place], [address], 4 16:42:23 XR, hand 2023 024 [facility], [address] [place] [address], [place], [address], 4 11:27:23 XR, hand 2023 024 [facility], [address], [place], [address], 4 15:21:37 XR, hand 2023 024 [email or web address] [facility], [address] [place] [address], [place], [address], 4 14:25:49 Medication Orders prednisone 10 mg tablets in a dose pack 2023 024 [email or web address] [id number], [address] [place], [place], [id number], 5 12:19:50 Patient TargetsNo targets recorded. Patient InstructionsNo instructions recorded. Reason for Referral Occupational Therapist Refer ral for Pain in right hand please contact patient to schedule Referring Physician: José Miguel Dickson, Orthopedic Surgery, Encounter Date: 06/17/2024 Results Created Date Observation Date Name Description Value Unit Range Abnormal Flag Note LastModifiedBy Organization Detail LastModifiedTime 09/24/20 23 XR, hand No observ ation record ed. [email or web address] Not Available 2022 15:16:00 09/25/20 23 XR, hand No observ ation record ed. [facility] [address], [place], [address], 09/26/2023 19:33:46 10/02/19 24 XR, hand No observ ation record ed. [facility] [address] [facility], [place], [address], 10/02/2023 14:10:28 10/08/19 24 XR, hand No observ ation record ed. [facility] [address] [facility] [address], [place], [address], 10/08/2023 14:20:52 10/30/19 24 XR, hand No observ ation record ed. [facility] [address] [facility], [place], [address], 10/30/2023 10:51:29 11/20/19 24 XR, hand No observ ation record ed. [facility] [address], [place], [address], 11/20/2023 11:00:40 Result Notes None recorded. Problems Name Problem SNOMED Code Status Onset Date Resolution Date Notes Provider Name and Address Organization Details Recorded Time Pain in right hand 6411793935802 09 Active 2022 AMBER Mariscal, [place] - [facility] [employer] [facility] 3 11:07:26 Fracture of metacarpal bone 917507010 Active 2023 AMBER Mariscal, [place] [facility] [employer] [facility] [facility] 4 13:45:16 Fracture of neck of metacarpal bone 12051225 Active 2023 AMBER Mariscal, [place] [facility] [employer] [facility] [employer] 4 10:35:44 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 2023 GAEL Owens [address] [facility], [address], [place], [address] , [place] [facility] [employer] [facility] [employer] 4 10:14:36 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 2023 GAEL Owens [address], [address], [place], [address], [place] [facility] 4 10:14:52 Ulnar nerve entrapment at elbow 899959930 Active 2023 GAEL Owens [address], [address], [place], [address], [place] [facility] 4 10:15:10 Problem Notes None recorded. Procedures Surgical History None recorded. Imaging Results Imaging Date Name Status [facility]Modified [facility] Details LastModified Time 09/24/2023 XR, hand completed [email or web address] Information no t available 09/24/2023 15:16:00 09/25/2023 XR, hand completed [facility] [address], [place], [address], 09/26/2023 19:33:46 10/02/2023 XR, hand completed [facility] [address], [place], [address], 10/02/2023 14:10:28 10/08/2023 XR, hand completed [facility] [address] [facility] [address], [place], [address], 10/08/2023 14:20:52 10/30/2023 XR, hand completed [facility] [address], [place], [address], 10/30/2023 10:51:29 11/20/2023 XR, hand completed [facility] [address], [place], [address], 11/20/2023 11:00:40 Procedure Notes None recorded. Medical Equipment None Reported. Allergies Allergen ID Allergen Name Allergen Category Reaction Reaction Severity Criticality Documentation Date Start Date Code Code System Note Provider Name and Address Organization Details Recorded Time 64613 Claritin medicatio n Not available Not available Not available 10/02/2023 6 RxNorm AMBER Mariscal, [place] - [facility] [employer] [facility] 13:44:25 Medications Name Sig Start Date Stop Date Status Note LastModified by Organization Details LastModified Time prednison e 10 mg tablet 10/03 completed Not Available Not Available Not Available cetirizin e 10 mg tablet active Not Available Not Available Not Available azithromy gar[place] 250 mg tablet 10/03 completed Not Available Not Available Not Available metronida zole 500 mg tablet TAKE 1 TABLET BY MOUTH EVERY 12 HOURS 10/03 completed Not Available Not Available Not Available prednison e 10 mg tablets in a dose pack Take 1 tab by mouth, 3 times a day for 3 daysTake 1 tab by mouth 2 times a day for 2 daysTake 1 tab by mouth once a day for 1 day 10/03 completed Not Available Not Available Not Available metoclopr amide 5 mg tablet TAKE 1 TABLET BY MOUTH DAILY active Not Available Not Available No t Available methylpre dnisolone 4 mg tablets in a dose pack 10/03 completed Not Available Not Available Not Available [place] 5 mg-325 mg tablet Take 1 tablet every 6 hours by oral route. 10/03 completed Not Available Not Available Not Available ondansetr on 4 mg disintegr ating tablet DISSOLVE 1 TABLET ON THE TONGUE EVERY 4 HOURS active Not Available Not Available No t Available fluticaso ne propionat e 50 mcg/actua tion nasal spray,shara pension active Not Available Not Available Not Available doxycycli ne hyclate 100 mg tablet 09/25 completed Not Available Not Available Not Available naproxen 500 mg tablet active Not Available Not Available Not Available escitalop neli 10 mg tablet TAKE 1 TABLET BY MOUTH DAILY IN THE MORNING active Not Available Not Available No t Available aripipraz ole 5 mg tablet active Not Available Not Available Not Available nitrofura ntoin monohydra te/macroc rystals 100 mg capsule 10/03 completed Not Available Not Available Not Available Claritin 10/02 completed pt is allergic Not Available Not Available Not Available EluRyng 0.12 mg-0.015 mg/24 hr vaginal ring 09/25 completed Not Available Not Available Not Available Vitals Date Recorded Body height Provider Name an d Address Organization Details Last Updated DateTime 10/02/2023 154.94 cm Carina Blackwell [facility] [employer] [facility] 10/02/2023 13:43:56 Date Recorded Body height Provider Name an d Address Organization Details Last Updated DateTime 10/08/2023 154.94 cm Carina Blackwell [facility] [employer] [facility] [employer] [facility] 10/08/2023 13:58:44 Date Recorded Body height Provider Name an d Address Organization Details Last Updated DateTime 10/30/2023 154.94 cm Carina Blackwell [facility] [employer] [facility] [employer] [facility] 10/30/2023 10:30:12 Date Recorded Body height Provider Name an d Address Organization Details Last Updated DateTime 11/20/2023 154.94 cm Carina Blackwell [facility] [employer] [facility] [employer] [facility] 11/20/2023 10:35:19 Date Recorded Body height Body mass index (BMI) Body mass index (BMI) [Percentile] Per age and sex Body weight Provider Name and Address Organization Details Last Updated DateTime 06/17/2024 157.48 cm 23 kg/m2 64 % 18573.64 g Melyssa Gravess [facility] [employer] [facility] [employer] [facility] 06/17/2024 09:45:38 Social History None recorded. Functional Status None recorded. Mental Status None recorded. Family History Relationship Description Onset Age of this Age Resolved Age Notes LastModified by Organization Details LastModified Time Maternal Grandmother Heart disease Not available 2022 11:06:19 Maternal Grandmother Family history of malignant neoplasm [email or web address] Not available 2022 11:06:33 Maternal Grandmother Diabetes mellitus [email or web address] Not available 2022 11:06:43 Medical History Condition Response BLINDNESS N KIDNEY STONES N MRSA N CARPAL TUNNEL SYNDROME N LUNG DISEASE/DISORDER N HISTORY OF DRUG ABUSE N RADIATION / CHEMOTHERAPY N COPD N SPORTS INJURY N ANKLE PAIN N BLOOD DISEASES N PAST SPINAL SURGERY N SCHIZOPHRENIA N SHINGLES N BOWEL PROBLEMS N SHOULDER PAIN N DEPRESSION (INCLUDING POST ) N FAILED BACK SYNDROME N STROKE/TIA N KNEE PAIN N ULCERS N OTHER MODALITIES N BENIGN PROSTATIC HYPERPLASIA N OBESITY N GERD/NAUSEA N ANEURYSM N URINARY/BLADDER/KIDNEY PROBLEMS N CORONARY ARTERY DISEASE (CAD) N Do you have Advance directive? N ADDICTION CONCERNS N USE OF BLOOD THINNERS N SKIN PROBLEMS N EMPHYSEMA N MUSCLE,JOINT OR BONE PROBLEMS N DVT N STOMACH ULCERS N BLOOD CLOTS N PAST HISTORY OF VEHICULAR ACCIDENT N USE OF NSAIDS N CONCUSSION OR SPINAL TRAUMA N ARTERIAL INSUFFICIENCY N NEUROPATHY N AIDS/HIV N FRACTURES N ELBOW PAIN N HYPERTENSION N TOURETTE'S N ANXIETY DISORDER N Metal allergy N BLOOD TRANSFUSION N ANEMIA/BLOOD DISORDER N BIPOLAR DISORDER N BRONCHITIS N OSTEOARTHRITIS N TUBERCULOSIS N FOOT PROBLEM N HEART VALVE DISORDERS N SLEEP APNEA N ALLERGIES/HAYFEVER N SOFT TISSUE INJURY N BACK INJECTIONS N INFECTIOUS DISEASE N HEART ARRHYTHMIA N INSOMNIA N ESRD N PAST INTERVENTIONAL PAIN MANAGEMENT HIST ORY N HIGH CHOLESTEROL / HYPERLIPIDEMIA N RHEUMATOID ARTHRITIS N PAST MEDICATION HISTORY N PVD N EDEMA N CHRONIC PAIN SYNDROME N CAROTID BLOCKAGE N BACK / NECK PROBLEMS N HAVE YOU BEEN HOSPITALIZED OR SEEN IN [facility] IN THE PAST YEAR ? N BURSITIS N HERNIATED DISC N DIALYSIS N POLYCYSTIC OVARIES N FIBROMYALGIA N OSTEOPOROSIS N ARTHRITIS N RESPIRATORY PROBLEMS N NO SIGNIFICANT PAST MEDICAL HISTORY N PAST HISTORY OF FALL N PERIPHERAL NEUROPATHY N DIABETES, TYPE N VON WILLIBRAND'S DISEASE N HEARTBURN / REFLUX N POST LAMINECTOMY SYNDROME N HEPATITIS / LIVER DISEASE N GOUT N SLEEP DISORDER N ALZHEIMER'S DISEASE N HERPES N HEADACHES/MIGRAINES N SEIZURES/EPILEPSY N VASCULAR DISEASE N Blood Disorder N HIP PAIN N DIZZINESS N HEAD TRAUMA OR INJURY N HEART DISEASE/HEART PROBLEMS N MULTIPLE SCLEROSIS N NEUROPSYCHOLOGICAL N CARDIAC ARRHYTHMIA N CANCER: SPECIFY N ANESTHESIA COMPLICATIONS N ATRIAL FIBRILLATION N AUTOIMMUNE DISEASE N Gynecological HistoryNo gynecological history recorded. Obstetrics History GPAL:G 0 P 0 0 0 0 Past Encounters Encounter ID Performer Location Encounter Start Date Encounter Closed Date Diagnosis/Indication Diagnosis SNOMED-CT Code Diagnosis ICD10 Code Diagnosis Note [id number] Richard Kaur MD [facility] [address] [address] 09/25/2023 10:50:10 10/01/2023 09:23:07 Pain in right hand 6888639142 73811 M79.219 [id number] Richard Kaur MD [facility] [address] [address] 10/02/2023 13:35:46 10/02/2023 14:25:49 Fracture of metacarpal bone 811577951 S62.336D [id number] Richard Kaur MD [facility] [address] [place] [address] 10/08/2023 13:56:10 10/08/2023 14:25:46 Fracture of metacarpal bone 852715132 S62.336D [id number] Richard Kaur MD [place] [address] 9 10/30/2023 10:29:04 10/30/2023 11:26:20 Fracture of metacarpal bone 496560425 S62.236D [id number] Richard Kaur MD [place] [address] 11/20/2023 10:34:09 11/20/2023 11:16:04 Fracture of neck of metacarpal bone 12403032 S62.336D [id number] Lalo Bennett MD [facility] [address] [place] [address] 06/17/2024 09:41:47 06/17/2024 10:11:12 Pain in right hand 8479325186 19392 M79.641 Flexor ten osynovitis of finger 689865637 M65.841 Ulnar nerv e entrapment at elbow 956296515 G56.21 Health Concerns Section Related Observation LastModified by Organization Detai ls LastModified Time None Recorded Concern Status LastModified by Organization Details LastModified Time None Recorded Advance Directives Directive None Recorded Payers Encounter Date Sequence Insurance Name Policy Number Policy Lamar Covered Member ID Lamar Member ID Guarantor Name 10/02/2023 1 [facility] 03/29/[facility] (MEDICAID REPLACEMENT - HMO) Sarah Kelly [id number] Sarah Kelly 10/08/2023 1 [facility] ON OR AFTER 03/29/21 (MEDICAID REPLACEMENT - HMO) Sarah Kelly [id number] Sarah Kelly 10/30/2023 1 [facility] ON OR AFTER 03/29/21 (MEDICAID REPLACEMENT - HMO) Sarah Kelly [id number] Sarah Kelly 11/20/2023 1 [facility] - DOS ON OR AFTER 21 (MEDICAID REPLACEMENT - HMO) Sarah Kelly [id number] Sarah Kelly 06/17/2024 1 [facility] - DOS ON OR AFTER 21 (MEDICAID REPLACEMENT - HMO) Sarah Kelly [id number] Sarah Kelly Notes Date Note Type Note Provider Name and Address Organization Details Recorded Time 06/17/2024 text/html the patient is a 19-year-old female who presents with right hand pain localized to the base of the 5th finger for the most part. Earlier this year she had a displaced 5th metacarpal neck fracture. Dr. Kaur did a closed reduction and casting and she healed well. No significant deformity was noted very minimal volar angulation is noted. She was having good function until recently when her right hand started to have pain and what she describes as occasional locking catching of the 5th finger. This only recently started to occur. She does repetitive motion at work with her hands she works at [email or web address] as a cook. She did go to have x-rays done at [facility] x-rays demonstrate no acute fracture lesion or mass nothing significant was noted on x-ray I have reviewed the x-rays in detail today with the patient I agree with the above findings. She states she does have a little bit of crossover when she flexes her fingers down into a fist the 5th comes under the 4th just slightly sometimes this will cause bit of a cramping sensation as well. She has failed conservative measures on her own at home she comes in today for initial evaluation treatment. GAEL Owens [address] [facility], [facility] [address], [place], [address], [place] [employer] 06/17/2024 10:16:07 OBGyn Episode No OBEpisode recorded.
--- OUTSIDE RECORDS SUMMARY | 2025-01-26 12:01 | XMS_ITS | Data Portability ---
Author Organization [facility] Address [address] [place] [address] Assessment No assessment recorded. Plan of Treatment [...] SNOMED-CT Code Diagnosis ICD10 Code Diagnosis Note [id number] MARCI Valencia [place] [address] [address] 09/30/2024 17:00:48 10/05/2024 15:45:07 Left without being seen [id number] 9102 Z53.21 Health Concerns Section Related Observation LastModified by Organization Detai ls LastModified Time None Recorded Concern Status LastModified by Organization Details LastModified Time None Recorded Advance Directives Directive None Recorded Payers Encounter Date Sequence Insurance Name Policy Number Policy Lamar Covered Member ID Lamar Member ID Guarantor Name 09/30/2024 1 [facility] ON OR AFTER 03/29/21 (MEDICAID REPLACEMENT - HMO) Sarah Kelly [id number] Sarah Kelly OBGyn Episode No OBEpisode recorded.
--- OUTSIDE RECORDS SUMMARY | 2025-01-26 12:01 | XMS_ITS | Clinical Summary ---
Author Organization [facility] Address [address] [place] [address] Care Team Providers Care Senior Librarian Name Role Phone Unavailable Primary Care Provider Unavailabl e Source Comments [facility],non-owned Affiliates and Associated Physician Practices is amultiple site organization consisting of ambulatory clinics and hospital sitesin [place], [place], [place] and [place]. This disclosure is being madepursuant to the Care Everywhere program and may not contain all information available regarding this patient. Last updated 18.[facility] Allergies Active Allergy Reactions Criticality Noted Date Comments Loratadine Anaphylaxis High 05/13/2022 Medications * This document contains information received from the source organization and may not represent a complete record from that organization. * Be aware that medications may not be up to date on this document. Alwaysverify current medications with the patient. ARIPiprazole (Abilify) 2 MG tabletIndicatio ns:Mixed Bipolar Affective Disorder Take 1 (one) tablet by mouth once daily Reasons: MIXED BIPOLAR AFFECTIVE DISORDER 30 tablet 1 2 Active Active Problems Problem Noted Date Diagnosed Date Major depressive disorder, r emission status unspecified, unspecified whether recurrent 05/15/2022 Immunizations Immunization Administration Dates Next Due Covid [employer] primary Monoval ent 12+ yr 0.3ml 2022(Deferred: [...] Date Recorded PHQ2 TOTAL SCORE 3 05/13/2022 Comments No Sex and Gender Information Value Date Recorded Sex Assigned at Not on file Legal Sex Female 1:40 PM CDT Gender Identity Not on file Sexual Orientation Not on file Last Filed Vital Signs Vital Sign Reading Time Taken Comments Blood Pressure 109/64 05/18/2022 4:12 PM CDT Pulse 59 05/18/2022 4:12 PM CDT Temperature 36.4 C (97.5 F) 05/18/2022 4:12 PM CDT Respiratory Rate 16 05/18/2022 4:12 PM CDT [...] 3-dose series) 2019 MENINGOCOCCAL (Group B) VACCINE SHARED DECISION-MAKING (1 of 2 - Standard) 2020 HEPATITIS C SCREENING 05/13/2022 CHLAMYDIA/GONORRHEA SCREENING 05/16/2023 05/16/2022 DTAP/TDAP/TD VACCINES (1 - Tdap) 2023 HEPATITIS B VACCINE (1 of 3 - 19+ 3-dose series) 2023 COVID-19 VACCINE (1 - 2023-2 5 season) 2024 DEPRESSION SCREENING 09/29/2024 05/15/2022, 05/13/2022 INFLUENZA VACCINE (Season Ended) 2025 ZOSTER VACCINE (1 of 2) 2054 HIV SCREENING Completed 2022 HIB VACCINE Aged Out No longer eligi ble based on patient's age to complete this topic MENINGOCOCCAL GROUPS A/C/Y/W VACCINE Aged Out No longer eligible b ased on patient's age to complete this topic [...] P24 AG PANEL (2022 6:54 AM CDT) [facility] HIV1/2 Ab + P24 Ag Non Reactive Non Reactive 2022 3:23 PM CDT [facility] Blood BLOOD SPECIMEN / Unknown Venipuncture / Unknown 2022 6:54 AM CDT 2022 8:59 AM CDT Narrative [facility] - 2022 3:23 PM CDT No Laboratory evidence of HIV infection. us Cinthya Julian MD LAB - CHEMISTRY ORDERABLES Final Result Performing Organization Address City/State/[facility] Co de Phone Number [facility] [address] [place] [address] * CHLAMYDIA + GC AMPLIFIED PROBE (STL) (05/16/2022 8:45 PM CDT) [facility] Chlamydia Amplified Probe Negative Negative 2022 1:15 PM CDT [facility] GC Amplified Probe Negative Negative 2022 1:15 PM CDT [facility] Microbiology URINE / Unknown 05/16/2022 8 :45 PM CDT 05/16/2022 8:45 PM CDT Narrative [facility] - 2022 1:15 PM CDT Results based on detection/no detection of ribosomal RNA by amplified method. us Cinthya Julian MD LAB - MICROBIOLOGY ORDERABL ES Final Result [facility] [address] [place] [address], [facility] [phone] from Last 3 Months or Most Recently Relevant to Health Maintenance Insurance Advance Directives * Full Code (Latest Code Status on File) Date Activated Date Inactivated Comments 05/15/2022 2:16 PM 05/18/2022 8:59 PM
--- NOTE | 2025-01-26 12:47 | PC.NURSE ---
Pt to CT scan via w/c at this time.
[2025-01-26 13:04] LABS: Magnesium 1.8 mg/dL (1.6-2.3)
[2025-01-26] MEDS: SODIUM CHLORIDE 0.9% IV 1,000 ML 999 ML IV CONT (13:05)
[2025-01-26 13:14] LABS: Lactic Acid Reflex 0.9 mmol/L (0.7-2.0)
--- OUTSIDE RECORDS SUMMARY | 2025-01-26 13:22 | XMS_ITS | Clinical Summary ---
Author Organization [facility] [employer] Address [address] [place] [address] Care Team Providers Care Fence Installer Helper Name Role Phone Unavailable Primary Care Provider Unavailabl e Source Comments [facility] [employer] [facility],non-owned Affiliates and Associated Physician Practices is amultiple site organization consisting of ambulatory clinics and hospital sitesin [place], [place], [place] and [place]. This disclosure is being madepursuant to the Care Everywhere program and may not contain all information available regarding this patient. Last updated 18.[facility] Allergies Active Allergy Reactions Criticality Noted Date [...] Immunizations Immunization Administration Dates Next Due Covid [employer] primary Monoval ent 12+ yr 0.3ml 2022(Deferred: [...] P24 AG PANEL (2022 6:54 AM CDT) [facility] HIV1/2 Ab + P24 Ag Non Reactive Non Reactive 2022 3:23 PM CDT [facility] Blood BLOOD SPECIMEN / Unknown Venipuncture / Unknown 2022 6:54 AM CDT 2022 8:59 AM CDT Narrative [facility] - 2022 3:23 PM CDT No Laboratory evidence of HIV infection. us Cinthya Julian MD LAB - CHEMISTRY ORDERABLES Final Result Performing Organization Address City/State/[facility] Co de Phone Number [facility] [address] [place] [address] * CHLAMYDIA + GC AMPLIFIED PROBE (STL) (05/16/2022 8:45 PM CDT) [facility] Chlamydia Amplified Probe Negative Negative 2022 1:15 PM CDT [facility] GC Amplified Probe Negative Negative 2022 1:15 PM CDT [facility] Microbiology URINE / Unknown 05/16/2022 8 :45 PM CDT 05/16/2022 8:45 PM CDT Narrative [facility] - 2022 1:15 PM CDT Results based on detection/no detection of ribosomal RNA by amplified method. us Cinthya Julian MD LAB - MICROBIOLOGY ORDERABL ES Final Result [facility] [address] [place] [address], [facility] [phone] from Last 3 Months or Most Recently Relevant to Health Maintenance Insurance Advance Directives * Full Code (Latest Code Status on File) Date Activated Date Inactivated Comments 05/15/2022 2:16 PM 05/18/2022 8:59 PM
--- OUTSIDE RECORDS SUMMARY | 2025-01-26 13:22 | XMS_ITS | Clinical Summary ---
Author Organization [facility] Address [address] [place] [address] Care Team Providers Care Recreation Program Coordinator Name Role Phone Unavailable Primary Care Provider [...]
[2025-01-26 13:44] LABS: Influenza A QL RT-PCR Negative (Negative); Influenza B QL RT-PCR Negative (Negative); RSV RNA, RT-PCR Negative (Negative); SARS-CoV-2 RNA PCR Negative (Negative)
--- NOTE | 2025-01-26 13:44 | ED_ITS ---
HPI - General Adult General Chief complaint: Syncope Stated complaint: syncopal episode, dizziness, 26 weeks Time Seen by Provider: 01/26/25 12:08 History of Present Illness HPI narrative: Patient 19-year-old female who presents emergency department with chief complaint of syncope. The patient reports that she has been feeling dizzy the last 2 weeks she describes a lightheaded and tingling sensation over entire body patient reports she is 26 weeks reports that she sees Dr. Manuel went over to OB and was sent to the emergency department for further evaluation. Patient reports that she was feeling lightheaded and had an episode where she became unresponsive. The patient had no loss of bowel or bladder control during these episodes Related Data Home Medications ?Medication ?Instructions ?Recorded ?Confirmed ?Last Taken ?Type docosahexaenoic acid 200 mg mg PO 10/27/24 01/17/25 Unknown History capsule ( DHA) escitalopram oxalate 10 mg tablet 10 mg PO DAILY 10/27/24 01/17/25 Unknown History (Lexapro) Allergies Allergy/AdvReac Type Severity Reaction Status Date / Time loratadine (From Claritin) Allergy Mild Hives Verified 01/17/25 14:39 Review of Systems 2 Review of Systems: A 10 system review of systems was completed on the patient and is negative except for what is stated in the HPI. Nursing and ancillary documentation was reviewed. [facility] Past Medical History Medical History Encounter for screening examination for sexually transmitted disease Suppression of menses Depression Family History Family History Father Diabetes mellitus Cerebrovascular accident Grandparent Diabetes mellitus Family history of malignant neoplasm of cervix Acute myocardial infarction High cholesterol Social History Social History Smoking status: Current every day smoker Tobacco type: e-cigarettes/vaping Second hand tobacco smoke exposure: No Alcohol intake: never Substance use: current Substance use type: marijuana Do You Feel Safe in your Home?: Yes Lack of Transportation: No Lack of Food: Never True Current Housing: Decline to Answer Concerned About Future Housing: No Difficulty Paying Gas/Electric Bills: No Difficulty Paying for Meds: No Currently Unemployed: No Education: High School Diploma/GED Difficulty w/ Childcare or Family Care: No Living arrangements: with family Occupation/Education: unemployed Gender identity (if verbalized by the patient): Female Exam 2 Narrative: GENERAL: Well-appearing, well-nourished, and in no acute distress. HEAD: Normocephalic, atraumatic. EYES: PERRLA and EOMI. ENT: Nares clear, no rhinorrhea or epistaxis. Mucous membranes moist. NECK: Supple. CHEST: Clear to auscultation. No respiratory distress. HEART: Regular rate and rhythm. No murmur heard. Normal peripheral pulses. ABDOMEN: Soft, nontender, nondistended, normal active bowel sounds. EXTREMITIES: Normal range of motion. No edema. SKIN: Warm, dry, no rash. NEURO: No focal deficits. Alert and oriented x3. PSYCH: Normal mood and affect. Course Vital Signs Vital signs: Vital Signs Temperature 36.2 C L 01/26/25 10:51 Pulse Rate 75 01/26/25 10:51 Respiratory Rate 16 01/26/25 10:51 Blood Pressure 103/64 01/26/25 10:51 Pulse Oximetry 100 01/26/25 10:51 Temperature 36.2 C L 01/26/25 10:51 Pulse Rate 90 01/26/25 13:04 Respiratory Rate 20 01/26/25 13:04 Blood Pressure 112/59 L 01/26/25 13:04 Pulse Oximetry 98 01/26/25 13:04 Oxygen Delivery Room Air 01/26/25 12:12 Medical Decision Making [facility] Narrative Medical decision making narrative: Differential diagnosis includes syncope, electrolyte abnormality, dehydration Feel heart tones are within normal limits CT head was negative EKG showed no dysrhythmia patient has been monitored on the cardiac nurse without evidence of dysrhythmia Patient received IV fluids was slightly orthostatic Vital Signs Vital Signs: Vital Signs Temperature 36.2 C L 01/26/25 10:51 Pulse Rate 75 01/26/25 10:51 Respiratory Rate 16 01/26/25 10:51 Blood Pressure 103/64 01/26/25 10:51 Pulse Oximetry 100 01/26/25 10:51 Temperature 36.2 C L 01/26/25 10:51 Pulse Rate 90 01/26/25 13:04 Respiratory Rate 20 01/26/25 13:04 Blood Pressure 112/59 L 01/26/25 13:04 Pulse Oximetry 98 01/26/25 13:04 Oxygen Delivery Room Air 01/26/25 12:12 Lab Data 01/26/25 11:39 01/26/25 11:39 Labs: Lab Results 01/26/25 01/26/25 01/26/25 Range/Units 11:38 11:39 12:59 WBC 10.5 H (4.5-10.0) K/mm3 RBC 3.50 L (4.2-5.4) M/mm3 Hgb 11.0 L (12.0-15.0) g/dL Hct 33.6 L (37.0-47.0) % MCV 96.0 (80-100) fl MCH 31.4 (26-34) pg MCHC 32.7 (32-36) g/dl RDW 12.7 (11.5-14.5) % Plt Count 290 (150-375) k/mm3 MPV 9.6 (7.4-10.4) fl Immature Gran % (Auto) 2.2 H (0-0.5) % Neut % (Auto) 62.6 (45.5-73.1) % Lymph % (Auto) 27.4 (18.3-44.2) % Republic % (Auto) 6.2 (2.6-8.5) % Eos % (Auto) 0.9 (0-4.4) % Baso % (Auto) 0.7 (0.2-1.2) % Lymph # (Auto) 2.87 (0.9-3.2) K/mm3 Republic # (Auto) 0.7 H (0.1-0.6) K/mm3 Eos # (Auto) 0.1 (0-0.3) K/mm3 Baso # (Auto) 0.1 (0.0-0.1) K/mm3 Abs Immat Gran (auto) 0.23 H (0.00-0.031) K/mm3 Absolute Neuts (auto) 6.6 (1.3-6.7) K/mm3 Absolute Nucleated RBC 0.000 (0.0-0.012) K/mm3 Nucleated RBC % 0.0 (0.0-0.2) % Sodium 135 L (137-145) mmol/L Potassium 3.6 (3.4-5.0) mmol/L Chloride 104 (98-107) mmol/L Carbon Dioxide 27 (22-30) mmol/L Anion Gap 4 (4-12) mmol/L BUN 4 L (7-17) mg/dL Creatinine 0.47 L (0.7-1.0) mg/dL Estim Creat Clear Calc 125 ml/min Estimated GFR > 60 (59 - ) Glucose 86 (65-110) mg/dL Lactic Acid 0.9 (0.7-2.0) mmol/L Calcium 8.4 (8.4-10.2) mg/dL Magnesium 1.8 (1.6-2.3) mg/dL Total Bilirubin 0.3 (0.2-1.3) mg/dL AST 20 (14-36) U/L ALT 13 (6-35) U/L Alkaline Phosphatase 85 (38-126) U/L Total Protein 7.0 (6.3-8.2) g/dL Albumin 3.9 (3.5-5.1) g/dL Influenza A (RT-PCR) Negative (Negative) Influenza B (RT-PCR) Negative (Negative) RSV (RT-PCR) Negative (Negative) SARS-CoV-2 RNA (RT-PCR) Negative (Negative) Discharge Plan Discharge Clinical Impression: Syncope Patient Disposition: Home Condition: Stable Instructions: Antibiotic Form, Syncope (ED) Patient Language: Wallisian Prescriptions: No Action metoclopramide HCl [Reglan] 5 mg tablet 5 mg PO DAILY Qty: 30 1RF DHA 200 mg capsule PO escitalopram oxalate [Lexapro] 10 mg tablet 10 mg PO DAILY Follow-up/Referrals: Jonny Manuel MD [Primary Care Provider] - Time of Disposition: 14:33
== END 2025-01-26 14:54 | disposition home or self-care (01) ==
PROVIDERS: Emergency Medicine; Emergency Provider Emergency Medicine; PCP Student in an Organized Health Care Education/Training Program
DX: R55 Syncope and collapse (principal); F32.A Depression, unspecified; F17.290 Nicotine dependence, other tobacco product, uncomplicated; R94.31 Abnormal electrocardiogram [ECG] [EKG]
CPT/HCPCS: 36415; 70450; 71046; 80053; 83605; 83735; 85025; 87637; 93005; 96360; 99284; J7030

== ENCOUNTER 2025-02-24 09:22 | Outpatient (CLI) | payer OTHER, SELFPAY ==
--- OUTSIDE RECORDS SUMMARY | 2025-02-24 09:27 | XMS_ITS | Clinical Summary ---
Author Organization [facility] Address [address] [place] [address] Care Team Providers Care Keypunch Operators Supervisor Name Role Phone Unavailable Primary Care Provider Unavailabl e Source Comments [facility],non-owned Affiliates and Associated Physician Practices is amultiple site organization consisting of ambulatory clinics and hospital sitesin [place], [place], [place] and [place]. This disclosure is being madepursuant to the Care Everywhere program and may not contain all information available regarding this patient. Last updated 18.[facility] Allergies Active Allergy Reactions Criticality Noted Date [...] Immunizations Immunization Administration Dates Next Due Covid [employer] primary Monoval ent 12+ yr 0.3ml 2022(Deferred: [...] 2:00 PM CDT Height 158.8 cm (5' 2.5) 05/16/2022 2:00 PM CDT Body Mass Index [...] P24 AG PANEL (2022 6:54 AM CDT) [facility] HIV1/2 Ab + P24 Ag Non Reactive Non Reactive 2022 3:23 PM CDT [facility] Blood BLOOD SPECIMEN / Unknown Venipuncture / Unknown 2022 6:54 AM CDT 2022 8:59 AM CDT Narrative [facility] - 2022 3:23 PM CDT No Laboratory evidence of HIV infection. us Cinthya Julian MD LAB - CHEMISTRY ORDERABLES Final Result Performing Organization Address City/State/[facility] Co de Phone Number [facility] [address] [place] [address] * CHLAMYDIA + GC AMPLIFIED PROBE (STL) (05/16/2022 8:45 PM CDT) [facility] Chlamydia Amplified Probe Negative Negative 2022 1:15 PM CDT [facility] GC Amplified Probe Negative Negative 2022 1:15 PM CDT [facility] Microbiology URINE / Unknown 05/16/2022 8 :45 PM CDT 05/16/2022 8:45 PM CDT Narrative [facility] - 2022 1:15 PM CDT Results based on detection/no detection of ribosomal RNA by amplified method. us Cinthya Julian MD LAB - MICROBIOLOGY ORDERABL ES Final Result [facility] [address] [place] [address], [facility] [phone] from Last 3 Months or Most Recently Relevant to Health Maintenance Insurance Advance Directives * Full Code (Latest Code Status on File) Date Activated Date Inactivated Comments 05/15/2022 2:16 PM 05/18/2022 8:59 PM
--- OUTSIDE RECORDS SUMMARY | 2025-02-24 09:27 | XMS_ITS | Data Portability ---
Author Organization [place] [facility], Main Office Address [address] [place] [address] Care Team Providers Care Masking Machine Operator Name Role Phone LALO SIGNH Primary Care Provider [phone] LALO SINGH Referring Provider [phone] Assessment Encounter Date Assessment Date Assessment LastModified [...] more than half the time spent in cioa-ie-oqjj care. Not available 11/20/2023 10:59:13 06/17/2024 06/17/2024 [...] contact patient to schedule 2023 024 [email or web address] [facility], [address], [place], [address], 11:32:42 Procedures None recorded. Surgeries None recorded. Imaging XR, hand 2023 024 [facility], [address] [place] [address], [place], [address], 4 16:42:23 XR, hand 2023 024 [facility], [address] [place] [address], [place], [address], 4 11:27:23 XR, hand 2023 024 [facility], [address], [place], [address], 4 15:21:37 XR, hand 2023 024 [email or web address] [facility], [address] [place] [address], [place], [address], 4 14:25:49 Medication Orders prednisone 10 mg tablets in a dose pack 2023 024 [email or web address] [id number], [address] [place], [place], [id number], 5 12:19:50 Patient TargetsNo targets recorded. Patient InstructionsNo instructions recorded. Reason for Referral Occupational Therapist Refer ral for Pain in right hand please contact patient to schedule Referring Physician: José Miguel Dickson, Orthopedic Surgery, Encounter Date: 06/17/2024 Results Created Date Observation Date Name Description Value Unit Range Abnormal Flag Note LastModifiedBy Organization Detail LastModifiedTime 09/24/20 23 XR, hand No observ ation record ed. [email or web address] Not Available 2022 15:16:00 09/25/20 23 XR, hand No observ ation record ed. [facility] [address], [place], [address], 09/26/2023 19:33:46 10/02/19 24 XR, hand No observ ation record ed. [facility] [address] [facility], [place], [address], 10/02/2023 14:10:28 10/08/19 24 XR, hand No observ ation record ed. [facility] [address] [address] [facility] [address], [place], [address], 10/08/2023 14:20:52 10/30/19 24 XR, hand No observ ation record ed. [facility] [address] [facility] [address], [place], [address], 10/30/2023 10:51:29 11/20/19 24 XR, hand No observ ation record ed. [facility] [address], [place], [address], 11/20/2023 11:00:40 Result Notes None recorded. Problems Name Problem SNOMED Code Status Onset Date Resolution Date Notes Provider Name and Address Organization Details Recorded Time Pain in right hand 8774108352344 09 Active 2022 AMBER Mariscal, [place] [facility] 3 11:07:26 Fracture of metacarpal bone 971649590 Active 2023 AMBER Mariscal, [place] [facility] [employer] [facility] 4 13:45:16 Fracture of neck of metacarpal bone 54576190 Active 2023 AMBER Mariscal, [place] [facility] 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 Medical Equipment None Reported. Allergies Allergen ID Allergen Name Allergen Category Reaction Reaction Severity Criticality Documentation Date Start Date Code Code System Note Provider Name and Address Organization Details Recorded Time 42881 Claritin medicatio n Not available Not available Not available 10/02/2023 6 RxNorm AMBER Mariscal, [facility] [employer] [facility] 4 13:44:25 Medications Name Sig Start Date Stop [...] completed Not Available Not Available Not Available [place] 5 mg-325 mg tablet Take 1 tablet [...] Updated DateTime 10/02/2023 154.94 cm Carina Blackwell [facility] [employer] [facility] [employer] [facility] 10/02/2023 13:43:56 Date Recorded Body height Provider Name an d Address Organization Details Last Updated DateTime 10/08/2023 154.94 cm Carina Blackwell [facility] [employer] [facility] 10/08/2023 13:58:44 Date Recorded Body height Provider Name an d Address Organization Details Last Updated DateTime 10/30/2023 154.94 cm Carina Blackwell [facility] [employer] [facility] [employer] [facility] 10/30/2023 10:30:12 Date Recorded Body height Provider Name an d Address Organization Details Last Updated DateTime 11/20/2023 154.94 cm Carina Blackwell [facility] [employer] [facility] [employer] [facility] 11/20/2023 10:35:19 Date Recorded Body height Body mass index (BMI) Body mass index (BMI) Percentile per age and sex Body weight Provider Name and Address Organization Details Last Updated DateTime 06/17/2024 157.48 cm 23 kg/m2 64 % 14711.64 g Melyssa Bradshaw ORTHOPEDIC NURSE [employer] [facility] [employer] [facility] 06/17/2024 09:45:38 Social History None recorded. Functional Status None recorded. Mental Status None recorded. Family History Relationship Description Onset Age of this Age Resolved Age Notes LastModified by Organization Details LastModified Time Maternal Grandmother Heart disease [email or web address] Not available 2022 11:06:19 Maternal Grandmother Family history of malignant neoplasm [email or web address] Not available 2022 11:06:33 Maternal Grandmother Diabetes mellitus [email or web address] Not available 2022 11:06:43 Medical History Condition [...] HAVE YOU BEEN HOSPITALIZED OR SEEN IN [facility] IN THE PAST YEAR ? N BURSITIS [...] SNOMED-CT Code Diagnosis ICD10 Code Diagnosis Note [id number] Richard Kaur MD [place] [address] 09/25/2023 10:50:10 10/01/2023 09:23:07 Pain in right hand 9988545290 34875 M79.790 [id number] Richard Kaur MD [place] [address] 10/02/2023 13:35:46 10/02/2023 14:25:49 Fracture of metacarpal bone 473119565 S62.336D [id number] Richard Kaur MD [facility] [address] [place] [address] 10/08/2023 13:56:10 10/08/2023 14:25:46 Fracture of metacarpal bone 391833325 S62.336D [id number] Richard Kaur MD [place] [address] 10/30/2023 10:29:04 10/30/2023 11:26:20 Fracture of metacarpal bone 935716320 S62.236D [id number] Richard Kaur MD [place] [address] 11/20/2023 10:34:09 11/20/2023 11:16:04 Fracture of neck of metacarpal bone 55316758 S62.336D [id number] Lalo Bennett MD [facility] [address] [place] [address] 06/17/2024 09:41:47 06/17/2024 10:11:12 Pain in right hand 0174843205 44188 M79.641 Flexor ten osynovitis of finger 829952906 M65.841 Ulnar nerv e entrapment at elbow 781027313 G56.21 Health Concerns Section Related Observation LastModified by Organization Detai ls LastModified Time None Recorded Concern Status LastModified by Organization Details LastModified Time None Recorded Advance Directives Directive None Recorded Payers Encounter Date Sequence Insurance Name Policy Number Policy Lamar Covered Member ID Lamar Member ID Guarantor Name 10/02/2023 1 [facility] ON OR AFTER 03/29/21 (MEDICAID REPLACEMENT - HMO) Sarah Robin [id number] Sarah Robin 10/08/2023 1 [facility] ON OR AFTER 03/29/21 (MEDICAID REPLACEMENT - HMO) Sarah Kelly [id number] Sarah Kelly 10/30/2023 1 [facility] ON OR AFTER 03/29/21 (MEDICAID REPLACEMENT - HMO) Sarah Kelly [id number] Sarah Kelly 11/20/2023 1 [facility] ON OR AFTER 03/29/21 (MEDICAID REPLACEMENT - HMO) Sarah Kelly [id number] Sarah Kelly 06/17/2024 1 [facility] ON OR AFTER 03/29/21 (MEDICAID REPLACEMENT - HMO) Sarah Kelly [id number] Sarah Kelly Notes Date Note Type Note [...] work with 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 She did go to have x-rays done at [facility] x-rays demonstrate no acute fracture lesion or [...] for initial evaluation treatment. GAEL Owens [address] [facility] [address], [place], [address], [place] [facility] 06/17/2024 10:16:07 OBGyn Episode No OBEpisode recorded.
--- OUTSIDE RECORDS SUMMARY | 2025-02-24 09:27 | XMS_ITS | Clinical Summary ---
Author Organization [facility] Address [address] [place] [address] Care Team Providers Care Complaint Specialist Name Role Phone Unavailable Primary Care Provider [...]
[2025-02-24 10:41] LABS: Basophils Absolute Auto 0.1 K/mm3 (0.0-0.1); Basophils Percent Auto 0.5 % (0.2-1.2); Eosinophils Absolute Auto 0.1 K/mm3 (0-0.3); Eosinophils Percent Auto 0.7 % (0-4.4); Hemoglobin 10.3 g/dL (12.0-15.0); Immature Granulocyte Absolute 0.29 K/mm3 (0.00-0.031); Lymphocytes Absolute Auto 1.99 K/mm3 (0.9-3.2); Lymphocytes Percent Auto 20.6 % (18.3-44.2); Mean Corpuscular HGB Conc 33.2 g/dl (32-36); Mean Corpuscular Hemoglobin 31.1 pg (26-34); Mean Corpuscular Volume 93.7 fl (80-100); Mean Platelet Volume 9.2 fl (7.4-10.4); Monocytes Absolute Auto 0.7 K/mm3 (0.1-0.6); Monocytes Percent Auto 6.9 % (2.6-8.5); Neutrophils Absolute Auto 6.6 K/mm3 (1.3-6.7); Neutrophils Percent Auto 68.3 % (45.5-73.1); Platelet Count Result 233 k/mm3 (150-375); Red Blood Count 3.31 M/mm3 (4.2-5.4); White Blood Count 9.7 K/mm3 (4.5-10.0)
[2025-02-24 10:50] LABS: Glucose 1 Hour PP 50gm Dose 150 mg/dL
[2025-02-24 11:32] LABS: HIV 1/2 Ab P24 Ag Result Negative (Negative)
[2025-02-24 11:36] LABS: Syphilis IgG/IgM Antibody Negative (Negative)
== END 2025-02-24 09:23 | disposition home or self-care (01) ==
LOC: ANHLAB 09:23
PROVIDERS: PCP Student in an Organized Health Care Education/Training Program; Visit Provider Student in an Organized Health Care Education/Training Program
DX: Z34.90 Encounter for supervision of normal pregnancy, unspecified, unspecified trimester (principal)
CPT/HCPCS: 36415; 82947; 85025; 86593; 86703; G0432

== ENCOUNTER 2025-03-01 15:36 | Outpatient (CLI) | payer OTHER, SELFPAY ==
--- OUTSIDE RECORDS SUMMARY | 2025-03-01 15:39 | XMS_ITS | Clinical Summary ---
Author Organization [facility] [facility] Address [address] [place] [address] Care Team Providers Care Burr Bench Operator Name Role Phone Unavailable Primary Care Provider Unavailabl e Source Comments [facility],non-owned Affiliates and Associated Physician Practices is amultiple site organization consisting of ambulatory clinics and hospital sitesin [place], [place], [place] and [place]. This disclosure is being madepursuant to the Care Everywhere program and may not contain all information available regarding this patient. Last updated 18.[facility] Allergies Active Allergy Reactions Criticality Noted Date [...] Immunizations Immunization Administration Dates Next Due Covid Avimoto primary Monoval ent 12+ yr 0.3ml 2022(Deferred: [...] P24 AG PANEL (2022 6:54 AM CDT) [facility] HIV1/2 Ab + P24 Ag Non Reactive Non Reactive 2022 3:23 PM CDT [facility] Blood BLOOD SPECIMEN / Unknown Venipuncture / Unknown 2022 6:54 AM CDT 2022 8:59 AM CDT Narrative [facility] - 2022 3:23 PM CDT No Laboratory evidence of HIV infection. us Cinthya Julian MD LAB - CHEMISTRY ORDERABLES Final Result Performing Organization Address City/State/[facility] Co de Phone Number [facility] [address] [place] [address] * CHLAMYDIA + GC AMPLIFIED PROBE (STL) (05/16/2022 8:45 PM CDT) [facility] Chlamydia Amplified Probe Negative Negative 2022 1:15 PM CDT [facility] GC Amplified Probe Negative Negative 2022 1:15 PM CDT [facility] Microbiology URINE / Unknown 05/16/2022 8 :45 PM CDT 05/16/2022 8:45 PM CDT Narrative [facility] - 2022 1:15 PM CDT Results based on detection/no detection of ribosomal RNA by amplified method. us Cinthya Julian MD LAB - MICROBIOLOGY ORDERABL ES Final Result [facility] [address] [place] [address], [facility] [phone] from Last 3 Months or Most Recently Relevant to Health Maintenance Insurance Advance Directives * Full Code (Latest Code Status on File) Date Activated Date Inactivated Comments 05/15/2022 2:16 PM 05/18/2022 8:59 PM
--- OUTSIDE RECORDS SUMMARY | 2025-03-01 15:39 | XMS_ITS | Clinical Summary ---
Author Organization [facility] Address [address] [place] [address] Care Team Providers Care Surface Room Shop Optician Name Role Phone Unavailable Primary Care Provider [...]
[2025-03-03 21:55] LABS: Herpes Simplex Type 1 DNA PCR Not Detected (Not Detected); Herpes Simplex Type 2 DNA PCR Not Detected (Not Detected)
== END 2025-03-01 15:37 | disposition home or self-care (01) ==
LOC: ANHLAB 15:37
PROVIDERS: PCP Internal Medicine; Visit Provider Obstetrics & Gynecology
DX: Z20.2 Contact with and (suspected) exposure to infections with a predominantly sexual mode of transmission (principal)
CPT/HCPCS: 36415; 87529

== ENCOUNTER 2025-03-24 07:00 | Outpatient (CLI) | payer OTHER, SELFPAY ==
[2025-03-24 07:37] LABS: Glucose Fasting Gestational 98 mg/dL (>/=95)
[2025-03-24 09:36] LABS: Glucose 1 Hour Gest 181 mg/dL (>/=180)
[2025-03-24 10:24] LABS: Glucose 2 Hour Gest 150 mg/dL (>/= 155)
[2025-03-24 11:31] LABS: Glucose 3 Hour Gest 134 mg/dL (>/=140)
== END 2025-03-24 07:01 | disposition home or self-care (01) ==
LOC: ANHLAB 07:01
PROVIDERS: PCP Internal Medicine; Visit Provider Obstetrics & Gynecology
DX: Z34.90 Encounter for supervision of normal pregnancy, unspecified, unspecified trimester (principal)
CPT/HCPCS: 36415; 82951; 82952

== ENCOUNTER 2025-03-29 11:45 | Observation (INO) | payer OTHER, SELFPAY ==
--- OUTSIDE RECORDS SUMMARY | 2025-03-29 11:52 | XMS_ITS | Data Portability ---
Author Organization [facility] Address [address] [place] [address] Assessment No assessment recorded. Plan of Treatment [...] SNOMED-CT Code Diagnosis ICD10 Code Diagnosis Note [id number] MARCI Valencia [place] [address] [address] 09/30/2024 17:00:48 10/05/2024 15:45:07 Left without being seen [id number] 9102 Z53.21 Health Concerns Section Related Observation LastModified by Organization Detai ls LastModified Time None Recorded Concern Status LastModified by Organization Details LastModified Time None Recorded Advance Directives Directive None Recorded Payers Insurance Date Sequence Insurance Name Policy Number Policy Lamar Covered Member ID Lamar Member ID Guarantor Name 10/16/2024 1 [facility] ON OR AFTER 03/29/21 (MEDICAID REPLACEMENT - HMO) Sarah Kelly [id number] Sarah Kelly OBGyn Episode No OBEpisode recorded.
--- OUTSIDE RECORDS SUMMARY | 2025-03-29 11:52 | XMS_ITS | Clinical Summary ---
Author Organization [facility] [employer] Address [address] [place] [address] Care Team Providers Care Bb Shot Packer Name Role Phone Unavailable Primary Care Provider Unavailabl e Source Comments [facility] [employer],non-owned Affiliates and Associated Physician Practices is amultiple site organization consisting of ambulatory clinics and hospital sitesin [place], [place], [place] and [place]. This disclosure is being madepursuant to the Care Everywhere program and may not contain all information available regarding this patient. Last updated 18.[facility] Allergies Active Allergy Reactions Criticality Noted Date [...] Immunizations Immunization Administration Dates Next Due Covid nuPSYS primary Monoval ent 12+ yr 0.3ml 2022(Deferred: [...] P24 AG PANEL (2022 6:54 AM CDT) [facility] HIV1/2 Ab + P24 Ag Non Reactive Non Reactive 2022 3:23 PM CDT [facility] Blood BLOOD SPECIMEN / Unknown Venipuncture / Unknown 2022 6:54 AM CDT 2022 8:59 AM CDT Narrative [facility] - 2022 3:23 PM CDT No Laboratory evidence of HIV infection. us Cinthya Julian MD LAB - CHEMISTRY ORDERABLES Final Result Performing Organization Address City/State/[facility] Co de Phone Number [facility] [address] [place] [address] * CHLAMYDIA + GC AMPLIFIED PROBE (STL) (05/16/2022 8:45 PM CDT) [facility] Chlamydia Amplified Probe Negative Negative 2022 1:15 PM CDT [facility] GC Amplified Probe Negative Negative 2022 1:15 PM CDT [facility] Microbiology URINE / Unknown 05/16/2022 8 :45 PM CDT 05/16/2022 8:45 PM CDT Narrative [facility] - 2022 1:15 PM CDT Results based on detection/no detection of ribosomal RNA by amplified method. us Cinthya Julian MD LAB - MICROBIOLOGY ORDERABL ES Final Result [facility] [address] [place] [address], [facility] [phone] from Last 3 Months or Most Recently Relevant to Health Maintenance Insurance Advance Directives * Full Code (Latest Code Status on File) Date Activated Date Inactivated Comments 05/15/2022 2:16 PM 05/18/2022 8:59 PM
--- OUTSIDE RECORDS SUMMARY | 2025-03-29 11:52 | XMS_ITS | Clinical Summary ---
Author Organization [facility] Address [address] [place] [address] Care Team Providers Care Senior Java Web Developer Name Role Phone Unavailable Primary Care Provider [...]
--- OUTSIDE RECORDS SUMMARY | 2025-03-29 11:52 | XMS_ITS | Data Portability ---
Author Organization [place] - [place] [employer], Main Office Address [address] [place] [address] Care Team Providers Care Fashion Stylist Name Role Phone LALO SINGH Primary Care Provider [phone] LALO SINGH Referring Provider Assessment Encounter Date [...] more than half the time spent in gmjw-uo-mvnj care. Not available 11/20/2023 10:59:13 06/17/2024 06/17/2024 [...] contact patient to schedule 2023 024 [email or web address] [facility], [address], [place], [address], 11:32:42 Procedures None recorded. Surgeries None recorded. Imaging XR, hand 2023 024 [facility] [address], [place], [address], 4 16:42:23 XR, hand 2023 024 [facility], [address] [facility], [place], [address], 4 11:27:23 XR, hand 2023 024 [facility], [address], [place], [address], 4 15:21:37 XR, hand 2023 024 [email or web address] [facility], [address] [place] [address], [place], [address], 4 14:25:49 Medication Orders prednisone 10 mg tablets in a dose pack 2023 024 [email or web address] [id number], [address] [place] [address], [id number], 5 12:19:50 Patient TargetsNo targets recorded. Patient InstructionsNo instructions recorded. Reason for Referral Occupational Therapist Refer ral for Pain in right hand please contact patient to schedule Referring Physician: José Miguel Dickson, Orthopedic Surgery, Encounter Date: 06/17/2024 Results Created Date Observation Date Name Description Value Unit Range Abnormal Flag Note LastModifiedBy Organization Detail LastModifiedTime 09/24/20 23 XR, hand No observ ation record ed. Not Available 2022 15:16:00 09/25/20 23 XR, hand No observ ation record ed. [facility] [address] [place] [address], [place], [address], 09/26/2023 19:33:46 10/02/19 24 XR, hand No observ ation record ed. [facility] [address] [facility], [place], [address], 10/02/2023 14:10:28 10/08/19 24 XR, hand No observ ation record ed. [facility] [address], [place], [address], 10/08/2023 14:20:52 10/30/19 24 XR, hand No observ ation record ed. s_g[facility] [place] [address] [facility], [place], [address], 10/30/2023 10:51:29 11/20/19 24 XR, hand No observ ation record ed. s_gmg [address], [place], [address], 11/20/2023 11:00:40 Result Notes None recorded. 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 Medical Equipment None Reported. Allergies Allergen ID Allergen Name Allergen Category Reaction Reaction Severity Criticality Documentation Date Start Date Code Code System Note Provider Name and Address Organization Details Recorded Time 23717 Claritin medicatio n Not available Not available Not available 10/02/202397684 6 RxNorm AMBER Mariscal, [facility] [employer] [facility] 4 13:44:25 Medications Name Sig Start Date [...] completed Not Available Not Available Not Available [employer] 5 mg-325 mg tablet Take 1 tablet [...] Updated DateTime 10/02/2023 154.94 cm Carina Blackwell [facility] [employer] [facility] [employer] [facility] 10/02/2023 13:43:56 Date Recorded Body height Provider Name an d Address Organization Details Last Updated DateTime 10/08/2023 154.94 cm Carina Blackwell [facility] [employer] [facility] [employer] [facility] 10/08/2023 13:58:44 Date Recorded Body height Provider Name an d Address Organization Details Last Updated DateTime 10/30/2023 154.94 cm Carina Blackwell [facility] [employer] [facility] [employer] [facility] 10/30/2023 10:30:12 Date Recorded Body height Provider Name an d Address Organization Details Last Updated DateTime 11/20/2023 154.94 cm Carina Blackwell [facility] [employer] [facility] [employer] [facility] 11/20/2023 10:35:19 Date Recorded Body height Body mass index (BMI) Body mass index (BMI) [Percentile] Per age and sex Body weight Provider Name and Address Organization Details Last Updated DateTime 06/17/2024 157.48 cm 23 kg/m2 64 % 14421.64 g Melyssa Bradshaw [facility] [employer] [facility] [employer] [facility] 06/17/2024 09:45:38 Social History None recorded. Functional Status None recorded. Mental Status None recorded. Family History Relationship Description Onset Age of this Age Resolved Age Notes LastModified by Organization Details LastModified Time Maternal Grandmother Heart disease [email or web address] Not available 2022 11:06:19 Maternal Grandmother Family history of malignant neoplasm [email or web address] Not available 2022 11:06:33 Maternal Grandmother Diabetes mellitus Not available 2022 11:06:43 Medical History Condition [...] HAVE YOU BEEN HOSPITALIZED OR SEEN IN [facility] IN THE PAST YEAR ? [...] SNOMED-CT Code Diagnosis ICD10 Code Diagnosis Note [id number] Richard Kaur MD [place] [address] 09/25/2023 10:50:10 10/01/2023 09:23:07 Pain in right hand 6338680723 04064 M79.715 [id number] Richard Kaur MD [place] [address] 10/02/2023 13:35:46 10/02/2023 14:25:49 Fracture of metacarpal bone 208649593 S62.336D [id number] Richard Kaur MD [facility] [place] [address] [place] [address] 10/08/2023 13:56:10 10/08/2023 14:25:46 Fracture of metacarpal bone 670179915 S62.336D [id number] Richard Kaur MD [place] [address] 10/30/2023 10:29:04 10/30/2023 11:26:20 Fracture of metacarpal bone 791212338 S62.236D [id number] Richard Kaur MD [place] [address] 11/20/2023 10:34:09 11/20/2023 11:16:04 Fracture of neck of metacarpal bone 76922643 S62.336D [id number] Lalo Bennett MD [facility] [place] [address] [place] [address] 06/17/2024 09:41:47 06/17/2024 10:11:12 Pain in right hand 4112883519 81330 M79.641 Flexor ten osynovitis of finger 092940310 M65.841 Ulnar nerv e entrapment at elbow 129462631 G56.21 Health Concerns Section Related Observation LastModified by Organization Detai ls LastModified Time None Recorded Concern Status LastModified by Organization Details LastModified Time None Recorded Advance Directives Directive None Recorded Payers Insurance Date Sequence Insurance Name Policy Number Policy Lamar Covered Member ID Lamar Member ID Guarantor Name 06/17/2024 1 [place] [employer] PUBLIC AID Sarah Kelly [id number] Sarah Kelly 12/29/2024 1 [facility] - DOS ON OR AFTER 21 (MEDICAID REPLACEMENT - HMO) Sarah Kelly [id number] Sarah Kelly 06/17/2024 1 [facility] - DOS ON OR AFTER 21 (MEDICAID REPLACEMENT - HMO) Sarah Kelly [id number] Sarah Kelly Notes Date Note Type Note [...] 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 She did go to have [facility] x-rays demonstrate no acute fracture lesion [...] for initial evaluation treatment. GAEL Owens [address] [facility], [facility] [address], [place], [address], [facility] [employer] 06/17/2024 10:16:07 OBGyn Episode No OBEpisode recorded.
[2025-03-29 12:15] LABS: Non Pathogenic Casts 0-2
[2025-03-29 12:16] VITALS: BP 116/73; PULSE 67
[2025-03-29 12:31] VITALS: BP 101/59; PULSE 73
[2025-03-29 12:36] LABS: Add Urine Microscopic? YES; Appearance Urine Cloudy (Clear); Glucose Urine UA Negative (Negative); Leukocyte Esterase Ur 2+ LEU/UL (Negative); Nitrate Urine Negative (Negative); Specific Grav Ur 1.018 (1.001-1.035)
[2025-03-29 12:45] VITALS: BP 113/64; PULSE 74
--- NOTE | 2025-03-29 13:11 | OBADM ---
This patient, Sarah Kelly, admitted to the OB room OB Post 115 for observation. Patient/family oriented to hospital policies and general routines including ID bracelet, bed and alarms, visiting hours, pain management, procedures, bathroom and other care routines, personal items, smoking policy, room service/diet, and visiting hours. Patient/Family are encouraged to report perceived risks to care and to ask questions if they do not understand what they are told or what they should do.
[2025-03-29] MEDS: LACTATED RINGERS 1,000 ML 100 ML IV CONT ×2 (13:15→14:22)
--- NOTE | 2025-03-29 13:35 | PC.NURSE ---
Spoke with Dr. Manuel at 1242 regarding admission of patient presenting with constant abdominal cramping that started today. Provider reviewed lab results over the phone. Reported frequency of contractions with FHR cat 1 tracing. Provider ordered 1000ML bag of LR to be administered. OK to bolus these fluids. Provider states he will send over macrobid to patient's preferred pharmacy.
--- NOTE | 2025-03-29 14:18 | PC.NURSE ---
Spoke with Dr. Manuel at 1407 regarding update on patient presenting for abdominal cramping. Patient states her cramps have lessened in intensity. She does rate them a 6/10. Mild to palpation. Patient is still rose mary irregular every 1-7min. Asher Manuel would like another 1000ML bolus of LR. She will also need a cervical check. Will report back with results after these are completed.
--- NOTE | 2025-03-29 15:09 | PC.NURSE ---
Spoke with Dr. Manuel at 1525 regarding update on patient. Contraction frequency has decreased. FHR cat 1 tracing. Some uterine irritability noted. Patient states that overall cramping has subsided. Patient has received 2 mL LR IV. Reported cervical exam results. Macrobid sent to pharmacy. Reported to patient to come back if contractions persist every 5-7 minutes or shorter. Stay hydrated. Come back if any leakage of fluid, vaginal bleeding, or decreased movement. handout given to patient. OK to discharge per Dr. Manuel
--- NOTE | 2025-03-30 07:41 | PM.OBTRLD ---
OB - Triage/Final Diagnosis Visit Information Date of evaluation: 03/29/25 Reason for evaluation: threatened labor Comments/Additional reasons for admission: I have assessed the risk for this patient, Sarah Kelly, and determined that she would benefit from observation care. Evaluation Laboratory results: Laboratory Tests 03/29/25 03/29/25 12:05 12:58 POC Capillary Glucose 71 Urine Color Yellow Urine Appearance Cloudy H Urine pH 6.[address] 1.018 Urine Protein Trace Urine Glucose (UA) Negative Urine Ketones 4+ H Ur Blood (Man) Negative Urine Nitrate Negative Urine Bilirubin Negative Urine Urobilinogen 1.0 Leukocyte Esterase Rfl 2+ H Urine RBC 0-2 Urine WBC 11-20 H Ur Squamous Epith Cells Moderate Urine Bacteria 3+ H Urine Casts 0-2 Vital signs: Vital Signs - 24 hr 03/29/25 12:16 03/29/25 12:31 03/29/25 12:45 Pulse Rate 67 73 74 Blood Pressure 116/73 101/59 L 113/64
== END 2025-03-29 15:37 | disposition home or self-care (01) ==
PROVIDERS: Admitting Provider Student in an Organized Health Care Education/Training Program; PCP Internal Medicine; Visit Provider Student in an Organized Health Care Education/Training Program
DX: O47.03 False labor before 37 completed weeks of gestation, third trimester (principal); Z3A.34 34 weeks gestation of pregnancy
CPT/HCPCS: 81001; 82948; 87086; 96360; G0378; G0379; J7120

== ENCOUNTER 2025-04-06 06:04 | Observation (INO) | payer OTHER, SELFPAY ==
--- OUTSIDE RECORDS SUMMARY | 2025-04-06 07:07 | XMS_ITS | Data Portability ---
Author Organization [facility] Address [address] [place] [address] Assessment No assessment recorded. Plan of Treatment [...] SNOMED-CT Code Diagnosis ICD10 Code Diagnosis Note [id number] MARCI [place] [address] [address] 09/30/2024 17:00:48 10/05/2024 15:45:07 Left without being seen [id number] 9102 Z53.21 Health Concerns Section Related Observation LastModified by Organization Detai ls LastModified Time None Recorded Concern Status LastModified by Organization Details LastModified Time None Recorded Advance Directives Directive None Recorded Payers Insurance Date Sequence Insurance Name Policy Number Policy Lamar Covered Member ID Lamar Member ID Guarantor Name 10/16/2024 1 [facility] ON OR AFTER 03/29/21 (MEDICAID REPLACEMENT - HMO) Sarah Kelly [id number] Sarah Kelly OBGyn Episode No OBEpisode recorded.
--- OUTSIDE RECORDS SUMMARY | 2025-04-06 07:07 | XMS_ITS | Data Portability ---
Author Organization [place] [email or web address], Main Office Address [address] [place] [address] Care Team Providers Care Help Desk Supervisor Name Role Phone LALO SINGH Primary Care Provider [phone] LALO SINGH Referring Provider [phone] Assessment Encounter Date Assessment Date Assessment LastModified [...] more than half the time spent in zskh-nm-[id number] care. Not available 11/20/2023 10:59:13 06/17/2024 06/17/2024 [...] contact patient to schedule 2023 024 [email or web address] [facility], [address], [place], [address], 11:32:42 Procedures None recorded. Surgeries None recorded. Imaging XR, hand 2023 024 [facility] [address], [place], [address], 4 16:42:23 XR, hand 2023 024 [facility] [place], [address] [facility], [place], [address], 4 11:27:23 XR, hand 2023 024 [facility] [place], [address], [place], [address], 4 15:21:37 XR, hand 2023 024 [email or web address] [facility], [address] [place] [address], [place], [address], 4 14:25:49 Medication Orders prednisone 10 mg tablets in a dose pack 2023 024 [email or web address] [id number], [address] [place] [address], [id number], 5 12:19:50 Patient TargetsNo targets recorded. Patient InstructionsNo instructions recorded. Reason for Referral Occupational Therapist Refer ral for Pain in right hand please contact patient to schedule Referring Physician: José Miguel Dickson, Orthopedic Surgery, Encounter Date: 06/17/2024 Results Created Date Observation Date Name Description Value Unit Range Abnormal Flag Note LastModifiedBy Organization Detail LastModifiedTime 09/24/20 23 XR, hand No observ ation record ed. [email or web address] Not Available 2022 15:16:00 09/25/20 23 XR, hand No observ ation record ed. [facility] [place] [address] [place] [address], [place], [address], 09/26/2023 19:33:46 10/02/19 24 XR, hand No observ ation record ed. s_gmg [facility] [address], [place], [address], 10/02/2023 14:10:28 10/08/19 24 XR, hand No observ ation record ed. [facility] [place] [address], [place], [address], 10/08/2023 14:20:52 10/30/19 24 XR, hand No observ ation record ed. s_gmg [place] [address] [facility], [place], [address], 10/30/2023 10:51:29 11/20/19 24 XR, hand No observ ation record ed. s_gmg [address], [place], [address], 11/20/2023 11:00:40 Result Notes None recorded. 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 GAEL Owens [address] [facility], [address], [place], [address] , [facility] - [facility] 4 10:14:36 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 Medical Equipment None Reported. Allergies Allergen ID Allergen Name Allergen Category Reaction Reaction Severity Criticality Documentation Date Start Date Code Code System Note Provider Name and Address Organization Details Recorded Time 35571 Claritin medicatio n Not available Not available Not available 10/02/202312455 6 RxNorm AMBER Mariscal, [facility] [employer] [facility] 4 13:44:25 Medications Name Sig Start [...] completed Not Available Not Available Not Available [place] 5 mg-325 mg tablet Take 1 tablet [...] Updated DateTime 10/02/2023 154.94 cm Carina Blackwell [facility] [employer] [facility] [employer] [facility] 10/02/2023 13:43:56 Date Recorded Body height Provider Name an d Address Organization Details Last Updated DateTime 10/08/2023 154.94 cm Carina Blackwell [facility] [employer] [facility] [employer] [facility] 10/08/2023 13:58:44 Date Recorded Body height Provider Name an d Address Organization Details Last Updated DateTime 10/30/2023 154.94 cm Carina Blackwell [facility] [employer] [facility] [employer] [facility] 10/30/2023 10:30:12 Date Recorded Body height Provider Name an d Address Organization Details Last Updated DateTime 11/20/2023 154.94 cm Carina Blackwlel [facility] [employer] [place] [facility] [employer] [facility] 11/20/2023 10:35:19 Date Recorded Body height Body mass index (BMI) Body mass index (BMI) [Percentile] Per age and sex Body weight Provider Name and Address Organization Details Last Updated DateTime 06/17/2024 157.48 cm 23 kg/m2 64 % 95517.64 g Melyssa Bradshaw [facility]PLACED [facility] [employer] [facility] [employer] [facility] 06/17/2024 09:45:38 Social History None recorded. Functional Status None recorded. Mental Status None recorded. Family History Relationship Description Onset Age of this Age Resolved Age Notes LastModified by Organization Details LastModified Time Maternal Grandmother Heart disease [email or web address] Not available 2022 11:06:19 Maternal Grandmother Family history of malignant neoplasm [email or web address] Not available 2022 11:06:33 Maternal Grandmother Diabetes mellitus [email or web address] Not available 2022 11:06:43 Medical History Condition [...] HAVE YOU BEEN HOSPITALIZED OR SEEN IN [facility] IN THE PAST YEAR ? N [...] SNOMED-CT Code Diagnosis ICD10 Code Diagnosis Note [id number] Richard Kaur MD [place] [address] 09/25/2023 10:50:10 10/01/2023 09:23:07 Pain in right hand 6275715817 55419 M79.221 [id number] Richard Kaur MD [place] [address] 10/02/2023 13:35:46 10/02/2023 14:25:49 Fracture of metacarpal bone 787782543 S62.336D [id number] Richard Kaur MD [facility] [place] [address] [place] [address] 10/08/2023 13:56:10 10/08/2023 14:25:46 Fracture of metacarpal bone 731330389 S62.336D [id number] Richard Kaur MD [place] [address] 10/30/2023 10:29:04 10/30/2023 11:26:20 Fracture of metacarpal bone 837211922 S62.236D [id number] Richard Kaur MD [place] [address] 11/20/2023 10:34:09 11/20/2023 11:16:04 Fracture of neck of metacarpal bone 58842039 S62.336D [id number] Lalo Bennett MD [facility] [place] [address] [place] [address] 06/17/2024 09:41:47 06/17/2024 10:11:12 Pain in right hand 4302363324 87014 M79.641 Flexor ten osynovitis of finger 067277690 M65.841 Ulnar nerv e entrapment at elbow 715896699 G56.21 Health Concerns Section Related Observation LastModified by Organization Detai ls LastModified Time None Recorded Concern Status LastModified by Organization Details LastModified Time None Recorded Advance Directives Directive None Recorded Payers Insurance Date Sequence Insurance Name Policy Number Policy Lamar Covered Member ID Lamar Member ID Guarantor Name 06/17/2024 1 [place]PART[place] PUBLIC AID Sarah Kelly [id number] Sarah Kelly 12/29/2024 1 [facility] - DOS ON OR AFTER 21 (MEDICAID REPLACEMENT - HMO) Sarah Kelly [id number] Sarah Kelly 06/17/2024 1 [facility] - DOS ON OR AFTER 21 (MEDICAID REPLACEMENT - HMO) Sarah Kelly [id number] Sarah Kelly Notes Date Note Type Note [...] 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 She did go to have x-rays done at [facility] x-rays demonstrate no acute fracture lesion [...] for initial evaluation treatment. GAEL Owens [address] [facility], [facility] [address], [place], [address], [facility] [employer] 06/17/2024 10:16:07 OBGyn Episode No OBEpisode recorded.
--- OUTSIDE RECORDS SUMMARY | 2025-04-06 07:07 | XMS_ITS | Clinical Summary ---
Author Organization [facility] Address [address] [place] [address] Care Team Providers Care Casework Supervisor Name Role Phone Unavailable Primary Care [...]
--- OUTSIDE RECORDS SUMMARY | 2025-04-06 07:07 | XMS_ITS | Encounter Summary ---
Author Organization [facility] Address [address] [facility] [facility] [place] [address] Care Team Providers Care It Support Specialist Name Role Phone Unavailable Primary Care Provider Unavailabl e Encounter Details Date Type Department Care Team (Late st Contact Info) Description 04/06/2025 8:15 AM CDT Hospital Encounter [facility] Women's Health Maternal & Care [facility] [place] [address] Jolly Ramos MD [address] [facility] [address] [place] [address] Social History Tobacco Use Types Packs/Day Years [...] Date Recorded PHQ2 TOTAL SCORE 3 05/13/2022 Estimated Date of Delivery Comme nts Yes 05/08/2025 Based on Ultraso und Sex and Gender Information Value Date Recorded Sex Assigned at Not on file Legal Sex Female 1:40 PM CDT Gender Identity Not on file Sexual Orientation Not on file documented as of this encounter Functional Status * Is person deaf or have serious hearing difficulty? Answer Date of Assessment Author No 05/18/2022 7:30 PM CDT Makayla Haas RN * Is person blind or have serious difficulty seeing? Answer Date of Assessment Author No 05/18/2022 7:30 PM CDT Makayla Haas RN * Does person have serious difficulty walking/climbing stairs? Answer Date of Assessment Author No 05/18/2022 7:30 PM CDT Makayla Haas RN * Does person have difficulty dressing/bathing? Answer Date of Assessment Author No 05/18/2022 7:30 PM CDT Makayla Haas RN * Does person have difficulty doing errands alone? Answer Date of Assessment Author No 05/18/2022 7:30 PM CDT Makayla Perez RN documented as of this encounter Mental Status * Does person have difficulty concentrating/remembering/making decisions? Answer Entry Date Author No 05/18/2022 7:30 PM CDT Makayla Haas RN documented in this encounter Plan of Treatment Upcoming Encounters Date Type Department Care Team (Late st Contact Info) Description 04/06/2025 9:00 AM CDT Appointment [facility] Maternal & Care [address] [place] [address] Jolly Ramos MD [address] [address] 04/06/2025 9:45 AM CDT Hospital Encounter [facility] Maternal & Care [facility] [place] [address] Jolly Ramos MD [address] [address] documented as of this encounter Visit Diagnoses Not on filedocumented in this encounter
--- OUTSIDE RECORDS SUMMARY | 2025-04-06 07:07 | XMS_ITS | Clinical Summary ---
Author Organization [facility] Address [address] [facility] [place] [address] Care Team Providers Care Dispatcher Automobile Rental Name Role Phone Unavailable Primary Care Provider Unavailabl e Source Comments [facility],non-owned Affiliates and Associated Physician Practices is amultiple site organization consisting of ambulatory clinics and hospital sitesin [place], [place], [place] and [place]. This disclosure is being madepursuant to the Care Everywhere program and may not contain all information available regarding this patient. Last updated 18.[facility] Allergies Active Allergy Reactions Criticality Noted Date [...] emission status unspecified, unspecified whether recurrent 05/15/2022 Estimated Date of Delivery Comme nts Yes 05/08/2025 Based on Ultraso und Encounters Date Type Department Care Team Description 04/06/2025 9:45 AM CDT Hospital Encounter [facility] M[facility] & Care [address] [place] [id number] Jolly Ramos MD 04/06/2025 8:15 AM CDT Hospital Encounter [facility] Maternal & Care [address] [id number] Jolly Ramos MD 04/04/2025 Travel from Last 3 Months Immunizations Immunization Administration Dates Next Due Monty Magallanes primary Monoval ent 12+ yr 0.3ml 2022(Deferred: [...] 05/16/2022 2:00 PM CDT Plan of Treatment Upcoming Encounters Date Type Department Care Team (Late st Contact Info) Description 04/06/2025 8:15 AM CDT Hospital Encounter [facility] M[facility] & Care [address] [place] [phone] [place] [address] [place] [phone] 04/06/2025 9:00 AM CDT Appointment [facility] [address] [place] [phone] [place] [address] [place] [phone] 04/06/2025 9:45 AM CDT Hospital Encounter [facility] [address] [place] [address] Jolly Ramos MD [address] [place] [phone] Health Maintenance Due Date Last Done Comments [...] season) 2024 DEPRESSION SCREENING 09/29/2024 05/15/2022, 05/13/2022 OB-RHOGAM INJECTION 02/13/2025 OB-GROUP B STREP SCREEN 04/03/2025 INFLUENZA VACCINE (#1) 2025 ZOSTER VACCINE (1 of 2) 2054 HIV SCREENING Completed 2022 OB-TDAP CURRENT Completed 02/24/2025 OB-ONE HOUR GLUCOSE Completed 04/05/2025, 04/05/2025 HIB VACCINE Aged Out No longer eligi ble based on patient's age to complete this topic MENINGOCOCCAL GROUPS A/C/Y/W VACCINE Aged Out No longer eligible b ased on patient's age to complete this topic PNEUMOCOCCAL VACCINE Aged Out No long er eligible based on patient's age to complete this topic Respiratory Syncytial Virus (RSV) Vaccine Pt: or over 60 yrs (No Doses Required) Completed Procedures Procedure Name Priority Date/Time Associated Diagnosis Comments GLUCOSE TOLERANCE GESTATIONAL Routine 04/05/2025 9:57 AM CDT GLUCOSE TOLERANCE GESTATIONAL Routine 04/05/2025 9:47 AM CDT HIV-1 HIV-2 ANTIBODY + HIV P24 AG PANEL AM Draw 2022 6:54 AM CDT CHLAMYDIA + GC AMPLIFIED PROBE Routine 05/16/2022 8:45 PM CDT from Last 3 Months or Most Recently Relevant to Health Maintenance Results * GLUCOSE TOLERANCE GESTATIONAL (04/05/2025 9:57 AM CDT) Only the most recent of2 resultswithin the time period is included. BLOOD SPECIMEN / Unknown Jonny Manuel MD LAB - CHEMISTRY ORDERABLES Melly miller Result * HIV-1 HIV-2 ANTIBODY + HIV P24 AG PANEL (2022 6:54 AM CDT) HIV1/2 Ab + P24 Ag Non Reactive Non Reactive 2022 3:23 PM CDT [facility] Blood BLOOD SPECIMEN / Unknown Venipuncture / Unknown 2022 6:54 AM CDT 2022 8:59 AM CDT Narrative [facility] - 2022 3:23 PM CDT No Laboratory evidence of HIV infection. Cinthya Julian MD LAB - CHEMISTRY ORDERABLES Final Result [facility] [address] [place] [address] * CHLAMYDIA + GC AMPLIFIED PROBE (STL) (05/16/2022 8:45 PM CDT) Chlamydia Amplified Probe Negative Negative 2022 1:15 PM CDT [facility] GC Amplified Probe Negative Negative 2022 1:15 PM CDT [facility] Microbiology URINE / Unknown 05/16/2022 8 :45 PM CDT 05/16/2022 8:45 PM CDT Narrative [facility] - 2022 1:15 PM CDT Results based on detection/no detection of ribosomal RNA by amplified method. Cinthya Julian MD LAB - MICROBIOLOGY ORDERABL ES Final Result [facility] [address] [place] [address], [facility] [phone] from Last 3 Months or Most Recently Relevant to Health Maintenance [place] [address] [address] [address] [facility] Advance Directives * Full Code (Latest Code Status on File) Date Activated Date Inactivated Comments 05/15/2022 2:16 PM 05/18/2022 8:59 PM
--- OUTSIDE RECORDS SUMMARY | 2025-04-06 07:07 | XMS_ITS | Encounter Summary ---
Author Organization [facility] Address [address] [facility] [place] [address] Care Team Providers Care Music Video Producer Name Role Phone Unavailable Primary Care Provider Unavailabl e Reason for Referral * (Routine) - Open Specialty Diagnoses / Procedures Referred By Contac t Referred To Contact Diagnoses Gestational diabetes mellitus (GDM) in third trimester, gestational diabetes method of control unspecified (HCC) Tobacco use affecting in third trimester, antepartum (HCC) Marijuana use during (HCC) Encounter for anatomic survey (HCC) Encounter for ultrasound to assess growth (HCC) Major depressive disorder, remission status unspecified, unspecified whether recurrent Procedures Sonogram - Complete Mari Sen MD [address] [place] [address] Phone: tel: fax: Referral ID Status Reason Start Date Expiration Date Visits Re quested Visits Authorized [id number] Open 04/04/2025 04/04/2026 3 3 * Consultation (Routine) - Open Specialty Diagnoses / Procedures Referred By Contac t Referred To Contact Maternal Medicine Diagnoses Gestational diabetes mellitus (GDM) in third trimester, gestational diabetes method of control unspecified (HCC) Tobacco use affecting in third trimester, antepartum (HCC) Marijuana use during (HCC) Encounter for anatomic survey (HCC) Encounter for ultrasound to assess growth (HCC) Major depressive disorder, remission status unspecified, unspecified whether recurrent Mari Sen MD [address] [place] [address] Phone: tel: fax: Referral ID Status Reason Start Date Expiration Date V isits Requested Visits Authorized [id number] Open Specialty Services Required 04/04/2025 04/04/2026 3 3 Reason for Visit * Reason Comments Ultrasound Maternal Medicine Consultation Encounter Details Date Type Department Care Team (Late st Contact Info) Description 04/06/2025 9:45 AM CDT Hospital Encounter [facility] Maternal & Care [address] [place] [address] Jolly Ramos MD [address] [facility] [place] [address] [place] [address] Social History Tobacco Use Types [...] Assessment Author No 05/18/2022 7:30 PM CDT Ziegemeie r, Makayla R, RN * Does person have serious difficulty walking/climbing stairs? Answer Date of Assessment Author No 05/18/2022 7:30 PM CDT Makayla Haas RN * Does person have difficulty dressing/bathing? Answer Date of Assessment Author No 05/18/2022 7:30 PM CDT Makayla Haas RN * Does person have difficulty doing errands alone? Answer Date of Assessment Author No 05/18/2022 7:30 PM CDT Makayla Haas RN documented as of this encounter Mental Status * Does person have difficulty concentrating/remembering/making decisions? Answer Entry Date Author No 05/18/2022 7:30 PM CDT Makayla Haas RN documented in this encounter Plan of Treatment Upcoming Encounters Date Type Department Care Team (Late st Contact Info) Description 04/06/2025 8:15 AM CDT Hospital Encounter [facility] Maternal & Care [address] [place] [phone] Jolly Ramos MD [address] [phone] 04/06/2025 9:00 AM CDT Appointment [facility] Maternal & Care [address] [place] [phone] Jolly Ramos MD [address] [phone] Scheduled Orders Name Type Priority Associated Diagnoses Orde r Schedule Sonogram - Complete [facility] Routine Gestational diabetes mellitus (GDM) in third trimester, gestational diabetes method of control unspecified (HCC) Tobacco use affecting in third trimester, antepartum (HCC) Marijuana use during (HCC) Encounter for anatomic survey (HCC) Encounter for ultrasound to assess growth (HCC) Major depressive disorder, remission status unspecified, unspecified whether recurrent 3 Occurrences starting 04/04/2025 until 04/04/2026 Scheduled Referrals Name Type Priority Associated Diagnoses Orde r Schedule AMB REFERRAL TO MATERNAL- MEDICINE Outpatient Referral Routine Gestational diabetes mellitus (GDM) in third trimester, gestational diabetes method of control unspecified (HCC) Tobacco use affecting in third trimester, antepartum (HCC) Marijuana use during ([facility]) Encounter for anatomic survey ([facility]) Encounter for ultrasound to assess growth (HCC) Major depressive disorder, remission status unspecified, unspecified whether recurrent 1 Occurrences starting 04/04/2025 until 04/04/2026 documented as of this encounter Visit Diagnoses Diagnosis Gestational diabetes mellitus (GDM) in third trimester, gestational diabetes method of control unspecified (HCC) Tobacco use affecting in third trimester, antepartum ([facility]) Marijuana use during ([facility]) Encounter for anatomic survey ([facility]) Encounter for anatomic survey Encounter for ultrasound to assess growth (HCC) Major depressive disorder, remission status unspecified, unspecified whether recurrent documented in this encounter
[2025-04-06 07:14] VITALS: BMI 28.2
--- NOTE | 2025-04-06 07:14 | OBADM ---
This patient, Sarah eKlly, admitted to the OB room Labor/Delivery/Recovery 106 for observation. Patient/family oriented to hospital policies and general routines including ID bracelet, bed and alarms, visiting hours, pain management, procedures, bathroom and other care routines, personal items, smoking policy, room service/diet, and visiting hours. Patient/Family are encouraged to report perceived risks to care and to ask questions if they do not understand what they are told or what they should do.
[2025-04-06 07:15] VITALS: BP 114/71; PULSE 69
[2025-04-06 07:49] LABS: Add Urine Microscopic? YES; Appearance Urine Cloudy (Clear); Glucose Urine UA Negative (Negative); Leukocyte Esterase Ur Negative LEU/UL (Negative); Nitrate Urine Negative (Negative); Non Pathogenic Casts 0-2; Specific Grav Ur 1.017 (1.001-1.035)
--- NOTE | 2025-04-07 08:05 | PM.OBTRLD ---
OB - Triage/Final Diagnosis Visit Information Comments/Additional reasons for admission: I have assessed the risk for this patient, Sarah Kelly, and determined that she would benefit from observation care. Evaluation Laboratory results: Laboratory Tests 04/06/25 07:36 Urine Color Yellow Urine Appearance Cloudy H Urine pH 7.5 Ur Specific Horton 1.017 Urine Protein Negative Urine Glucose (UA) Negative Urine Ketones Negative Ur Blood (Man) Negative Urine Nitrate Negative Urine Bilirubin Negative Urine Urobilinogen 1.0 Leukocyte Esterase Rfl Negative Urine RBC 0-2 Urine WBC 0-5 Ur Squamous Epith Cells None seen Urine Bacteria None seen Urine Casts 0-2 Final Diagnosis (1) Abdominal pain affecting : Code(s): O26.899 - Other specified related conditions, unspecified trimester; R10.9 - Unspecified abdominal pain Status: Acute
== END 2025-04-06 08:25 | disposition home or self-care (01) ==
PROVIDERS: Obstetrics & Gynecology; Admitting Provider Obstetrics & Gynecology; PCP Internal Medicine; Visit Provider Obstetrics & Gynecology
DX: O26.899 Other specified pregnancy related conditions, unspecified trimester (principal); R10.9 Unspecified abdominal pain; Z3A.35 35 weeks gestation of pregnancy
CPT/HCPCS: 81001; A9270; G0378; G0379

== ENCOUNTER 2025-04-18 14:16 | Outpatient (RCR) | payer OTHER, SELFPAY ==
--- NOTE | ~2025-04-18 | US_ITS ---
EXAM: US OB BPP wo non-stress - 04/18/2025 15:15 CDT History: 19 years old Female with GDM Comparison: None available. Technique Real time transabdominal obstetric sonographic imaging was performed. Findings A single live intrauterine gestation is identified. Lie: longitudinal Presentation: vertex heart rate: 133 beats per minute Placental position: Fundal/left MILIND: 17.39 cm, which is between the 7.5 cm - 5 th and 24.4 - 95 th percentiles. Biophysical profile: breathing movement: 2 Gross body movement: 2 tone: 2 Qualitative AFV: 2 Total BPP score: 8 of 8. Impression Total biophysical profile score is 8 out of 8. Reviewed, dictated and finalized at location A. Impression Total biophysical profile score is 8 out of 8.
[2025-04-18 15:25] VITALS: BP 108/71; PULSE 79
== END 2025-05-07 09:55 | disposition home or self-care (01) ==
LOC: ANHOBOP 14:16
PROVIDERS: PCP Internal Medicine; Visit Provider Obstetrics & Gynecology
DX: O24.414 Gestational diabetes mellitus in pregnancy, insulin controlled (principal); Z3A.37 37 weeks gestation of pregnancy
CPT/HCPCS: 59025; 76819

== ENCOUNTER 2025-04-22 22:22 | Observation (INO) | payer OTHER, SELFPAY ==
[2025-04-22 23:16] VITALS: BP 115/56; PULSE 80
--- OUTSIDE RECORDS SUMMARY | 2025-04-22 23:16 | XMS_ITS | Clinical Summary ---
Author Organization [facility] Address [address] [place] [address] Care Team Providers Care Talent Acquisition Sourcer Name Role Phone Unavailable Primary Care Provider [...] of 3 - 19+ 3-dose series) 2023 SARS-COV-2 Immunization ( - season) 2024 Influenza Immunization (#1) 2025 Respiratory Syncytial Virus (RSV) Immunization (Adult) (1 [...]
--- OUTSIDE RECORDS SUMMARY | 2025-04-22 23:16 | XMS_ITS | Encounter Summary ---
Author Organization [facility] Address [address] [facility] [place] [address] Care Team Providers Care Newspaper Reporter Name Role Phone Unavailable Primary Care Provider Unavailabl e Reason for Referral * (Routine) - Open Specialty Diagnoses / Procedures Referred By Contac t Referred To Contact Diagnoses Diet controlled gestational diabetes mellitus (GDM) in third trimester (HCC) Tobacco use affecting in third trimester, antepartum (HCC) Marijuana use during (HCC) 38 weeks gestation of (HCC) Encounter for ultrasound ([facility]) Procedures Biophysical Profile w NST Mari Sen MD [address] [place] [address] Phone: tel: fax: Referral ID Status Reason Start Date Expiration Date Visits Re quested Visits Authorized [id number] Open 04/19/2025 04/19/2026 2 2 Reason for Visit * Reason Comments Follow-up Maternal Medicine Biophysical Profile Non-stress Test Diabetes * (Routine) - Open Specialty Diagnoses / Procedures Referred By Contac t Referred To Contact Diagnoses Diet controlled gestational diabetes mellitus (GDM) in third trimester (HCC) Tobacco use affecting in third trimester, antepartum (HCC) Marijuana use during (HCC) 38 weeks gestation of (HCC) Encounter for ultrasound ([facility]) Procedures Biophysical Profile w NST Mari Sen MD [address] [place] [address] Phone: tel: fax: Referral ID Status Reason Start Date Expiration Date Visits Re quested Visits Authorized [id number] Open 04/19/2025 04/19/2026 2 2 Encounter Details Date Type Department Care Team (Latest Contact Info) Description 04/20/2025 12:27 PM CDT - 04/20/2025 11:59 PM CDT Hospital Encounter [facility] [address] [place] [address] Umesh Nicolas MD [address] [address] Discharge Disposition: Home or Self Care Social History Tobacco Use Types Packs/Day Years [...] on file documented as of this encounter Last Filed Vital Signs Vital Sign Reading Time Taken Comments Blood Pressure 115/75 04/20/2025 12:55 PM CDT Pulse 75 04/20/2025 12:55 PM CDT Temperature - - Respiratory Rate - - Oxygen Saturation - - Inhaled Oxygen Concentration - - Weight 74.4 kg (164 lb) 04/20/2025 12:55 PM CDT Height 157.5 cm (5' 2) 04/20/2025 12:55 PM CDT Body Mass Index 30 04/20/2025 12:55 PM CDT documented in this encounter Functional Status * Is person [...] of Assessment Author No 05/18/2022 7:30 PM AAKASHT Makayla Haas RN * Does person have difficulty doing errands alone? Answer Date of Assessment Author No 05/18/2022 7:30 PM Makayla Ashby RN documented as of this encounter Mental Status * Does person have difficulty concentrating/remembering/making decisions? Answer Entry Date Author No 05/18/2022 7:30 PM Makayla Ashby RN documented in this encounter Medications at Time of Discharge ARIPiprazole (Abilify) 2 MG tabletIndication s:Mixed Bipolar Affective Disorder Take 1 (one) tablet by mouth once daily Reasons: MIXED BIPOLAR AFFECTIVE DISORDER 30 tablet 1 05/19/2022 ferrous gluconate 324 (38 Fe) MG tablet Take 1 (one) tablet by mouth once daily Vit-Fe Fumarate-FA ( vitamin) 28-0.8 MG tablet Take 1 (one) tablet by mouth once daily documented as of this encounter Progress Notes * Liliam Reis RN - 04/20/2025 12:58 PM CDT Patient here for provider visit and ultrasound. Denies contractions, denies vaginal bleeding, leakage of fluid, and reports good movement. RN reviewed kick counts. Denies headache, blurred vision, RUQ pain. Patient Vitals for the past 6 hrs: Pulse BP 04/20/25 1255 75 115/75 Patient has no questions or concerns today. She said she could not get her blood sugar logs to send. Offered to help patient and she reports she just has a couple blood sugars on her phone. Patient states: FBS's 70-90, with one or two times 100-102. 1 hr PP: B, L, D blood sugars are 90-100 She reports she usually has eggs for breakfast, ramen or ham and cheese for lunch, last nights dinner was pork chop, mashed potatoes, and green beans. Patient's random blood sugar today about 1-1.5 hours after eating half of a taquito is 87 in officetoday. NST reviewed with MFM as reactive. Liliam Reis RN 04/20/2025 1:02 PM * Lynn Jamil, [employer] - 04/20/2025 12:32 PM CDT [facility] follow up visit Sarah Kelly is a 19 year old 37w3d. We are following her for GDM, MDD. She has no complaints today. She reports good FM, no bleeding, no LOF, no DC, no cramps/contractions/pain/pressure, no CARMONA's, vision changes, RUQ pain, or swelling. She does not have BS or food logs for review today. States she is checking and getting normal results. Denies ever having a reading over 90. Genetic screening/testing: not collected Her is complicated by: Patient Active Problem List Diagnosis Date Noted Diet controlled gestational diabetes mellitus (GDM) in third trimester ([facility]) 04/06/2025 Priority: Not Prioritized Tobacco use affecting in third trimester, antepartum ([facility]) 04/06/2025 Priority: Not Prioritized Marijuana use during ([facility]) 04/06/2025 Priority: Not Prioritized Major depressive disorder, remission status unspecified, unspecified whether recurrent 05/15/2022 Priority: Not Prioritized Exam: There were no vitals taken for this visit. General: NAD Abdomen: soft, NT Extremities: equal in size and width bilaterally, NT, no sign of edema FHT: per US Urine dip: negative glucose, negative ketones, negative protein, negative blood Labs: 02/24/25) 1 hr GCT: 150 (03/24/25) 3 hr GTT: 98,181,150,134 US: Please see report for details. Impressions/Recs 1. IUP (Intrauterine ) at 37w3d 2. GDM - initial consult @ 35 weeks (04/06/25) - No logs provided thus far. - No logs to review today, can not make recommendations d/t lack of data regarding need for insulin. - discussed importance of glucose monitoring and control in - recommend twice weekly testing given unknown control of GDM - Recommend delivery @ 38-39 weeks We reviewed the target glucose ranges to minimize excessive growth and optimize outcomes. These are: Fasting 60-90 mg/dl; preprandial 60-100 mg/dl; and 1-hour postprandial <130 mg/dl. Antepartum testing Recommend BID kick counts. 2x weekly NST/weekly BPP is recommended starting at 32 weeks or sooner if indicated and continuing until delivery Serial Ultrasound assessment of growth is recommended. Timing of Delivery If spontaneous delivery has not occurred by 39 weeks gestation, delivery may be planned between 39-40 weeks. If dating is uncertain, an amniocentesis for Lung Maturity may be performed prior toscheduled delivery. If complications, such as preeclampsia, macrosomia or poor glucose control develop, then delivery plans may need to be revised. Route of delivery Vaginal delivery may be anticipated unless the fetus is excessively large or there is an abnormal presentation. Diabetes is associated with about a six-fold risk for shoulder dystocia. Operative vaginal deliveries should be approached with caution. Glucose control in labor During labor, capillary glucose values should be checked every 1-2 hours (depending on their stability). Maintenance fluids with 5% dextrose are infused to prevent starvation ketosis. If the glucose values exceed 110 mg/dl, an insulin infusion is recommended. Long-term diabetes surveillance The risk of this patient developing diabetes outside of over the next five years may be as high as 50%. I recommend that she have a 2 hr 75 gram load gtt at 6 to 8 weeks and counseling about ways to minimize her risk. If her testing is normal, annual glucose screening by her primary care physician is advised. In any future pregnancies, she should have a HGBA1C drawn with her p renatal panel and if wnl, then a 1 hr gtt at 14-18 weeks. If WNL, then repeat 1 hr gtt at 26-28 weeks. 3.MDD States she has tried many different meds in the past and they all made her bipolar worse. Reports feeling stable at this time. Reports having good support at home. ER precautions given. 4. Tobacco and MJ use Advised reduction/discontinuation We reviewed kick counts (BID), as well as labor and preeclampsia signs and symptoms. RTC: Twice weekly testing Recommend delivery @ 38-39 weeks given uncertain control of GDM Keep all appointments with primary OB I spent 30 minutes with the patient, greater than 50% of the time was spent face to face in discussion with the patient the remainder of the time was spent in chart prep and data review. The patient is to follow up with her primary obstetrical care provider for her routine care and acute OB care including delivery as clinically indicated. Once again, we appreciate the opportunity to assist you in the care of your patient. If issues arise for which I can be of help before her next visit here, please contact me directly, or contact one of the [facility] physicians. EMILY Jackson 04/20/2025 12:32 PM documented in this encounter Plan of Treatment Upcoming Encounters Date Type Department Care Team (Late st Contact Info) Description 04/26/2025 1:00 PM CDT Hospital Encounter [facility] [address] [place] [phone] 04/29/2025 1:00 PM CDT Hospital Encounter [facility] [address] [place] [phone] 05/03/2025 1:00 PM CDT Appointment [facility] [address] [place] [phone] 05/06/2025 1:00 PM CDT Appointment [facility] [address] [place] [phone] documented as of this encounter Procedures Procedure Name Priority Date/Time Associated Diagnosis Comments BIOPHYSICAL PROFILE W NST Routine 04/20/2025 12:33 PM CDT Diet controlled gestational diabetes mellitus (GDM) in third trimester (HCC) Tobacco use affecting in third trimester, antepartum (HCC) Marijuana use during (HCC) 38 weeks gestation of ([facility]) Encounter for ultrasound ([facility]) documented in this encounter Results * Biophysical Profile w NST (04/20/2025 12:33 PM CDT) Linked Results Indication ======== Gestational diabetes mellitus in , insulin controlled History ====== OB History 1 Lab Tests Test Date Result NIPT Declined Maternal Assessment Physical Exam Height 157 cm, 5 ft 2 in. Weight 74 kg, 164 lb. Initial weight 53 kg, 117 lb. BMI 30.00 kg/m . Initial BMI 21.40 kg/m . Weight gain 21 kg, 47 lb Method ====== Transabdominal ultrasound examination. View: Sufficient ========= Sweet . Number of fetuses: 1 Dating ====== Date Details Gest. age ANITRA Stated ANITRA 37 w + 3 d 05/08/2025 Assigned dating based on stated ANITRA, selected on 04/06/2025 37 w + 3 d 05/08/2025 General Evaluation Cardiac activity present. FHR 137 bpm. Presentation: cephalic Placenta: Placental site: posterior, fundal Amniotic Fluid Assessment ==== Amount of AF: normal MVP 6.4 cm. MILIND 14.3 cm. Q1 0.0 cm, Q2 6.4 cm, Q3 3.5 cm, Q4 4.4 cm Biophysical Profile 2: breathing movements 2: Gross body movements 2: tone 2: Amniotic fluid volume NST: reactive 07/08 Biophysical profile score Non Stress Test NST interpretation: reactive. Baseline FHR 135 bpm. Baseline variability: moderate. Accelerations: present Growth Overview Exam date GA BPD (mm) HC (mm) AC (mm) FL (mm) HL (mm) EFW (g) 04/06/2025 35w 3d 84.3 16% 306.5 4% 308.1 38% 64.9 6% 2388 20% Anatomy The following structures appear normal: Abdomen Stomach. Kidneys. Bladder. Impression ========= Single, live, intrauterine at 37w 3d The amniotic fluid volume is normal. The biophysical profile is 10/10. Comment ======== U/S cannot detect all structural, genetic, or functional , placental, or maternal abnormalities Follow-up ======== Continue 2x-weekly testing Coding ====== Diagnoses O24.414: Gestational diabetes mellitus in , insulin controlled Procedures 18898: US Uterus Limited 75414: Biophysical Profile W NST [employer] PACS Anatomical Region Laterality Modality Other 04/20/2025 12:3 3 PM CDT Mari Sen MD [facility] ORDERABLES Edited Result - Final documented in this encounter Visit Diagnoses Diagnosis Diet controlled gestational diabetes mellitus (GDM) in third trimester ([facility])- Primary Tobacco use affecting in third trimester, antepartum ([facility]) Marijuana use during ([facility]) 37 weeks gestation of ([facility]) state, incidental Encounter for ultrasound ([facility]) Encounter for routine screening for malformation using ultrasonics Encounter for other screening follow-up ([facility]) 38 weeks gestation of ([facility]) state, incidental Diet controlled gestational diabetes mellitus (GDM) in third trimester ([facility])- Primary Tobacco use affecting in third trimester, antepartum ([facility]) Marijuana use during ([facility]) 38 weeks gestation of ([facility]) state, incidental Encounter for ultrasound ([facility]) Encounter for routine screening for malformation using ultrasonics Diet controlled gestational diabetes mellitus (GDM) in third trimester ([facility])- Primary Tobacco use affecting in third trimester, antepartum ([facility]) 38 weeks gestation of ([facility]) state, incidental Marijuana use during ([facility]) Encounter for other screening follow-up ([facility]) documented in this encounter
--- OUTSIDE RECORDS SUMMARY | 2025-04-22 23:16 | XMS_ITS | Data Portability ---
Author Organization [facility] Address [address] [address] Assessment No assessment recorded. Plan of Treatment [...] SNOMED-CT Code Diagnosis ICD10 Code Diagnosis Note [id number] MARCI Valencia [place] [address] [address] 09/30/2024 17:00:48 10/05/2024 15:45:07 Left without being seen [id number] Z53.21 Health Concerns Section Related Observation LastModified by Organization Detai ls LastModified Time None Recorded Concern Status LastModified by Organization Details LastModified Time None Recorded Advance Directives Directive None Recorded Payers Insurance Date Sequence Insurance Name Policy Number Policy Lamar Covered Member ID Lamar Member ID Guarantor Name 10/16/2024 1 [facility] ON OR AFTER 03/29/21 (MEDICAID REPLACEMENT - HMO) Sarah Kelly [id number] Sarah Kelly OBGyn Episode No OBEpisode recorded.
--- OUTSIDE RECORDS SUMMARY | 2025-04-22 23:16 | XMS_ITS | Clinical Summary ---
Author Organization [facility] [employer] Address [address] [place] [address] Care Team Providers Care Protozoology Teacher Name Role Phone Unavailable Primary Care Provider Unavailabl e Source Comments [facility] [employer],non-owned Affiliates and Associated Physician Practices is amultiple site organization consisting of ambulatory clinics and hospital sitesin [place], [place], [place] and [place]. This disclosure is being madepursuant to the Care Everywhere program and may not contain all information available regarding this patient. Last updated 18.[facility] [employer] Allergies Active Allergy Reactions Criticality Noted Date [...] MIXED BIPOLAR AFFECTIVE DISORDER 30 tablet 1 Active Additional Information Patient not taking.Reason: Other, Reported on 04/06/2025 ferrous gluconate 324 (38 Fe) MG tablet Take 1 (one) tablet by mouth once daily Active Vit-Fe Fumarate-FA ( vitamin) 28-0.8 MG tablet Take 1 (one) tablet by mouth once daily Active Active Problems Problem Noted Date Diagnosed Date Diet controlled gestational diabetes mellitus (GDM) in third trimester 04/06/2025 Tobacco use affecting pregna ncy in third trimester, antepartum 04/06/2025 Marijuana use during 04/06/2025 Major depressive disorder, r emission status unspecified, unspecified whether recurrent 05/15/2022 Estimated Date of Delivery Comme nts Yes 05/08/2025 Based on Ultraso und Encounters Date Type Department Care Team Description 04/20/2025 12:27 PM CDT - 04/20/2025 11:59 PM CDT Hospital Encounter [facility] [address] [place] [address] Umesh Nicolas MD Discharge Disposition: Home or Self Care 04/15/2025 2:33 PM CDT - 04/15/2025 11:59 PM CDT Hospital Encounter [facility] [address] [place] [address] Fabian Cunningham MD Discharge Disposition: Home or Self Care 04/15/2025 2:09 PM CDT - 04/15/2025 2:32 PM CDT Hospital Encounter [facility] [address] [place] [address] Fabian Cunningham MD [employer] Discharge Disposition: Home or Self Care 04/06/2025 8:36 AM CDT - 04/06/2025 11:59 PM CDT Hospital Encounter [facility] [address] [place] [address] Jolly Ramos MD Discharge Disposition: Home or Self Care 04/06/2025 8:36 AM CDT - 04/06/2025 11:59 PM CDT Hospital Encounter [facility] [address] [place] [address] Jolly Ramos MD Discharge Disposition: Home or Self Care 04/06/2025 8:15 AM CDT - 04/06/2025 8:35 AM CDT Hospital Encounter [facility] [address] [place] [address] Jolly Ramos MD Discharge Disposition: Home or Self Care 04/04/2025 Travel from Last 3 Months Immunizations [...] Pulse 75 04/20/2025 12:55 PM CDT Temperature 36.4 C (97.5 F) 05/18/2022 4:12 PM CDT Respiratory Rate 16 05/18/2022 4:12 PM CDT Oxygen Saturation 98% 05/18/2022 4:12 PM CDT Inhaled Oxygen Concentration - - Weight 74.4 kg (164 lb) 04/20/2025 12:55 PM CDT Height 157.5 cm (5' 2) 04/20/2025 12:55 PM CDT Body Mass Index 30 04/20/2025 12:55 PM CDT Plan of Treatment Upcoming Encounters Date Type Department Care Team (Late st Contact Info) Description 04/26/2025 1:00 PM CDT Hospital Encounter [facility] access [facility] [address] [place] [address] 04/29/2025 1:00 PM CDT Hospital Encounter [facility] access [facility] [address] [place] [address] 05/03/2025 1:00 PM CDT Appointment [facility] [address] [place] [address] 05/06/2025 1:00 PM CDT Appointment Critical access [facility] [address] [place] [address] Health Maintenance Due Date Last Done Comments [...] weeks gestation of (HCC) Encounter for ultrasound (HCC) BIOPHYSICAL PROFILE W NST Routine 04/15/2025 3:10 PM CDT Diet controlled gestational diabetes mellitus (GDM) in third trimester ([facility]) SONOGRAM - COMPLETE Routine 04/06/2025 8 :32 AM CDT Gestational diabetes mellitus (GDM) in third trimester, gestational diabetes method of control unspecified ([facility]) Tobacco use affecting in third trimester, antepartum ([facility]) Marijuana use during ([facility]) Encounter for anatomic survey ([facility]) Encounter for ultrasound to assess growth ([facility]) Major depressive disorder, remission status unspecified, unspecified whether recurrent GLUCOSE TOLERANCE GESTATIONAL Routine 04/05/2025 9:57 AM CDT GLUCOSE TOLERANCE GESTATIONAL Routine 04/05/2025 9:47 AM CDT HIV-1 HIV-2 ANTIBODY + HIV P24 AG PANEL AM Draw 2022 6:54 AM CDT CHLAMYDIA + GC AMPLIFIED PROBE Routine 05/16/2022 8:45 PM CDT from Last 3 Months or Most Recently Relevant to Health Maintenance Results * Biophysical Profile w NST (04/20/2025 12:33 PM CDT) Only the most recent of2 resultswithin the time period is included. Linked Results Indication ======== Gestational diabetes mellitus [...] volume is normal. The biophysical profile is 07/08. Comment ======== U/S cannot detect all structural, genetic, or functional , placental, or maternal abnormalities Follow-up ======== Continue 2x-weekly testing Coding ====== Diagnoses O24.414: Gestational diabetes mellitus in , insulin controlled Procedures 60138: US Uterus Limited 74623: Biophysical Profile W NST Traity PACS Anatomical Region Laterality Modality Other 04/20/2025 12:3 3 PM CDT Mari Sen MD [facility] ORDERABLES Edited Result - Final * Sonogram - Complete (04/06/2025 8:32 AM CDT) Linked Results Indication ======== Gestational diabetes mellitus in , unspecified control History ====== OB History 1 Maternal Assessment Physical Exam Height 157 cm, 5 ft 2 in. Weight 72 kg, 158 lb. Initial weight 53 kg, 117 lb. BMI 28.90 kg/m . Initial BMI 21.40 kg/m . Weight gain 19 kg, 41 lb Method ====== Transabdominal ultrasound. View: Suboptimal view: limited by late gestational age ========= Sweet . Number of fetuses: 1 Dating ====== Date Details Gest. age ANITRA Stated ANITRA 35 w + 3 d 05/08/2025 U/S 04/06/2025 based upon AC, BPD, Femur, HC 34 w + 1 d 2025 Assigned dating based on stated ANITRA, selected on 04/06/2025 35 w + 3 d 05/08/2025 General Evaluation Cardiac activity present. FHR 120 bpm. Presentation: cephalic Placenta: Placental site: posterior Umbilical cord: Cord vessels: 3 vessel cord. Insertion site: normal insertion Amniotic fluid: Amount of AF: normal. MVP 4.8 cm. MILIND 16.3 cm. Q1 2.7 cm, Q2 4.6 cm, Q3 4.2 cm, Q4 4.8 cm Biometry BPD 84.3 mm 34w 0d 16% Hadlock HC 306.5 mm 34w 1d 4% Hadlock Cerebellum tr 48.3 mm 42% [place] AC 308.1 mm 34w 5d 38% Hadlock Femur 64.9 mm 33w 3d 6% Hadlock HC / AC 0.99 -/- Hadlock Weight Calculation: EFW 2,388 g 20% Hadlock EFW (lb,oz) 5 lb 4 oz EFW by Hadlock ([id number]) appropriate Growth Overview Exam date GA BPD (mm) HC (mm) AC (mm) FL (mm) HL (mm) EFW (g) 04/06/2025 35w 3d 84.3 16% 306.5 4% 308.1 38% 64.9 6% 2388 20% Anatomy The following structures appear normal: Head / Neck Cranium. Lateral ventricles. Choroid plexus. Midline falx. Cavum septi pellucidi. Cerebellum. Cisterna magna. Thalami. Face Lips. Heart / Thorax 4-chamber view. RVOT view. LVOT view. 3-vessel view. 2-dowrrx-qivmqms view. Situs. Aortic arch view. Bicaval view. Ductal arch view. Interventricular septum. Great vessels. Right lung. Left lung. Diaphragm. Abdomen Stomach. Kidneys. Bladder. Spine Cervical spine. Thoracic spine. Lumbar spine. Sacral spine. Extremities / Skeleton Left hand. Left foot. The following structures could not be adequately visualized: Face Profile. Nasal bone. Orbits. Abdomen Cord insertion. Genitals. Extremities / Skeleton Arms. Right hand. Legs. Right foot. Maternal Structures Right Ovary Not visualized Appearance: Adnexa appears normal Left Ovary Not visualized Appearance: Adnexa appears normal Impression ========= This is the first exam at our facility at this late gestational age. Single, live, intrauterine at 35w 3d The size is appropriate. The amniotic fluid volume is normal. No major malformations were seen within the limitations of ultrasound Follow-up ======== Growth US in 3-4 weeks, if undelivered. See separate visit notes. Coding ====== Procedures 21075: US Preg Uterus Detailed Ayi Laile PACS Anatomical Region Laterality Modality Other 04/06/2025 8:32 AM CDT Mari Sen MD [facility] ORDERABLES Edited Result - Final * GLUCOSE TOLERANCE GESTATIONAL (04/05/2025 9:57 AM CDT) Only the most recent of2 resultswithin the time period is included. BLOOD SPECIMEN / Unknown Jonny Manuel MD LAB - CHEMISTRY ORDERABLES Melly l Result * HIV-1 HIV-2 ANTIBODY + HIV P24 AG PANEL (2022 6:54 AM CDT) HIV1/2 Ab + P24 Ag Non Reactive Non Reactive 2022 3:23 PM CDT [facility] Blood BLOOD SPECIMEN / Unknown Venipuncture / Unknown 2022 6:54 AM CDT 2022 8:59 AM CDT Narrative [facility] - 2022 3:23 PM CDT No Laboratory evidence of HIV infection. Cinthya Julian MD LAB - CHEMISTRY ORDERABLES Final Result [facility] [address] [place] [address] * CHLAMYDIA + GC AMPLIFIED PROBE (STL) (05/16/2022 8:45 PM CDT) Chlamydia Amplified Probe Negative Negative 2022 1:15 PM CDT [facility] GC Amplified Probe Negative Negative 2022 1:15 PM CDT [facility] Microbiology URINE / Unknown 05/16/2022 8 :45 PM CDT 05/16/2022 8:45 PM CDT Narrative [facility] - 2022 1:15 PM CDT Results based on detection/no detection of ribosomal RNA by amplified method. Cinthya Julian MD LAB - MICROBIOLOGY ORDERABL ES Final Result [facility] [address] [place] [address], [facility] [phone] from Last 3 Months or Most Recently Relevant to Health Maintenance Insurance [facility] Advance Directives * Full Code (Latest Code Status on File) Date Activated Date Inactivated Comments 05/15/2022 2:16 PM 05/18/2022 8:59 PM
--- OUTSIDE RECORDS SUMMARY | 2025-04-22 23:16 | XMS_ITS | Data Portability ---
Author Organization [place] [facility] [employer] [facility], Main Office Address [address] [place] [address] Care Team Providers Care Environmental Program Manager Name Role Phone LALO SINGH Primary Care Provider LALO SINGH Referring Provider [phone] Assessment Encounter Date Assessment Date Assessment LastModified [...] more than half the time spent in [id number] care. Not available 11/20/2023 10:59:13 06/17/2024 06/17/2024 [...] contact patient to schedule 2023 024 [email or web address] [facility], [address], [place], [address], 11:32:42 Procedures None recorded. Surgeries None recorded. Imaging XR, hand 2023 024 [facility] [address], [place], [address], 4 16:42:23 XR, hand 2023 024 [facility] [place], [address] [facility], [place], [address], 4 11:27:23 XR, hand 2023 024 [facility] [place], [address], [place], [address], 4 15:21:37 XR, hand [email or web address] [facility], [address] [place] [address], [place], [address], 4 14:25:49 Medication Orders prednisone 10 mg tablets in a dose pack 2023 024 [email or web address] [id number], [address] [place] [address], [phone], 5 12:19:50 Patient TargetsNo targets recorded. Patient InstructionsNo instructions recorded. Reason for Referral Occupational Therapist Refer ral for Pain in right hand please contact patient to schedule Referring Physician: José Miguel Dickson, Orthopedic Surgery, Encounter Date: 06/17/2024 Results Created Date Observation Date Name Description Value Unit Range Abnormal Flag Note LastModifiedBy Organization Detail LastModifiedTime 09/24/20 23 XR, hand No observ ation record ed. [email or web address] Not Available 2022 15:16:00 09/25/20 23 XR, hand No observ ation record ed. [facility] [place] [address] [place] [address], [place], [address], 09/26/2023 19:33:46 10/02/19 24 XR, hand No observ ation record ed. s[facility] [address] [facility], [place], [address], 10/02/2023 14:10:28 10/08/19 24 XR, hand No observ ation record ed. [facility] [place] [address], [place], [address], 10/08/2023 14:20:52 10/30/19 24 XR, hand No observ ation record ed. [email or web address] [place] [address] [facility], [place], [address], 10/30/2023 10:51:29 11/20/19 24 XR, hand No observ ation record ed. [email or web address]_gmg [address], [place], [address], 11/20/2023 11:00:40 Result Notes None recorded. Problems Name Problem SNOMED Code Status Onset Date Resolution Date Notes Provider Name and Address Organization Details Recorded Time Pain in right hand 8886862837684 09 Active 2022 AMBER Mariscal, [place] [facility] [employer] [facility] 3 11:07:26 Fracture of metacarpal bone 558996622 Active 2023 AMBER Mariscal, [place] [facility] [employer] [facility] [facility] 4 13:45:16 Fracture of neck of metacarpal bone 08110931 Active 2023 AMBER Mariscal, [place] [facility] [employer] [facility] 4 10:35:44 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 2023 GAEL Owens [address], [address], [place], [address] [facility] [employer] [facility] 4 10:14:36 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 Medical Equipment None Reported. Allergies Allergen ID Allergen Name Allergen Category Reaction Reaction Severity Criticality Documentation Date Start Date Code Code System Note Provider Name and Address Organization Details Recorded Time 45768 Claritin medicatio n Not available Not available Not available 10/02/202347885 6 RxNorm AMBER Mariscal, [facility] [employer] [facility] 4 13:44:25 Medications Name Sig Start Date [...] completed Not Available Not Available Not Available Phoenix 5 mg-325 mg tablet Take 1 tablet [...] Updated DateTime 10/02/2023 154.94 cm Carina Blackwell [facility] [employer] [facility] [employer] [facility] 10/02/2023 13:43:56 Date Recorded Body height Provider Name an d Address Organization Details Last Updated DateTime 10/08/2023 154.94 cm Carina Blackwell [facility] [employer] [facility] [employer] [facility] 10/08/2023 13:58:44 Date Recorded Body height Provider Name an d Address Organization Details Last Updated DateTime 10/30/2023 154.94 cm Carina Blackwell [facility] [employer] [facility] [employer] [facility] 10/30/2023 10:30:12 Date Recorded Body height Provider Name an d Address Organization Details Last Updated DateTime 11/20/2023 154.94 cm Carina Blackwell [facility] [employer] [facility] [employer] [facility] 11/20/2023 10:35:19 Date Recorded Body height Body mass index (BMI) Body mass index (BMI) [Percentile] Per age and sex Body weight Provider Name and Address Organization Details Last Updated DateTime 06/17/2024 157.48 cm 23 kg/m2 64 % 32977.64 g Melyssa Bradshaw [facility] [employer] [facility] [employer] [facility] 06/17/2024 09:45:38 Social History None recorded. Functional Status None recorded. Mental Status None recorded. Family History Relationship Description Onset Age of this Age Resolved Age Notes LastModified by Organization Details LastModified Time Maternal Grandmother Heart disease [email or web address] Not available 2022 11:06:19 Maternal Grandmother Family history of malignant neoplasm Not available 2022 11:06:33 Maternal Grandmother Diabetes mellitus Not available 2022 11:06:43 Medical History Condition Response BLINDNESS N KIDNEY STONES N MRSA N CARPAL TUNNEL SYNDROME N LUNG DISEASE/DISORDER N HISTORY OF DRUG ABUSE N COPD N RADIATION / CHEMOTHERAPY N SPORTS INJURY N ANKLE PAIN N BLOOD DISEASES N PAST SPINAL SURGERY N SCHIZOPHRENIA N SHINGLES N SHOULDER PAIN N DEPRESSION (INCLUDING POST ) N BOWEL PROBLEMS N FAILED BACK SYNDROME N STROKE/TIA N KNEE PAIN N OTHER MODALITIES N ULCERS N BENIGN PROSTATIC HYPERPLASIA N OBESITY N [...] N NEUROPATHY N AIDS/HIV N FRACTURES N HYPERTENSION N ELBOW PAIN N TOURETTE'S N Metal allergy N ANXIETY DISORDER N BLOOD TRANSFUSION N ANEMIA/BLOOD DISORDER N BIPOLAR DISORDER N BRONCHITIS N OSTEOARTHRITIS N TUBERCULOSIS N FOOT PROBLEM N HEART VALVE DISORDERS N SLEEP APNEA N SOFT TISSUE INJURY N ALLERGIES/HAYFEVER N BACK INJECTIONS N INFECTIOUS DISEASE N HEART ARRHYTHMIA N ESRD N INSOMNIA N PAST INTERVENTIONAL PAIN MANAGEMENT HIST ORY N RHEUMATOID ARTHRITIS N HIGH CHOLESTEROL / HYPERLIPIDEMIA N PAST MEDICATION HISTORY N PVD N EDEMA N CHRONIC PAIN SYNDROME N CAROTID BLOCKAGE N BACK / NECK PROBLEMS N HAVE YOU BEEN HOSPITALIZED OR SEEN IN [facility] ER IN THE PAST YEAR ? N BURSITIS N HERNIATED DISC N DIALYSIS N POLYCYSTIC OVARIES N FIBROMYALGIA N OSTEOPOROSIS N ARTHRITIS N RESPIRATORY PROBLEMS N NO SIGNIFICANT PAST MEDICAL HISTORY N PAST HISTORY OF FALL N PERIPHERAL NEUROPATHY N DIABETES, TYPE N VON WILLIBRAND'S DISEASE N HEARTBURN / REFLUX N HEPATITIS / LIVER DISEASE N POST LAMINECTOMY SYNDROME N GOUT N SLEEP DISORDER N ALZHEIMER'S DISEASE N HERPES N SEIZURES/EPILEPSY N HEADACHES/MIGRAINES N VASCULAR DISEASE N Blood Disorder N HIP PAIN N DIZZINESS N HEAD TRAUMA OR INJURY N HEART DISEASE/HEART PROBLEMS N MULTIPLE SCLEROSIS N NEUROPSYCHOLOGICAL N CANCER: SPECIFY N CARDIAC ARRHYTHMIA N ANESTHESIA COMPLICATIONS N ATRIAL FIBRILLATION N AUTOIMMUNE DISEASE N Gynecological HistoryNo gynecological history recorded. Obstetrics History GPAL:G 0 P 0 0 0 0 Past Encounters Encounter ID Performer Location Encounter Start Date Encounter Closed Date Diagnosis/Indication Diagnosis SNOMED-CT Code Diagnosis ICD10 Code Diagnosis Note [id number] Richard Kaur MD [place] [address] 09/25/2023 10:50:10 10/01/2023 09:23:07 Pain in right hand 0749236897 91549 M79.881 [id number] Richard Kaur MD [place] [address] 10/02/2023 13:35:46 10/02/2023 14:25:49 Fracture of metacarpal bone 811560033 S62.336D [id number] Richard Kaur MD [facility] [place] [address] [place] [address] 10/08/2023 13:56:10 10/08/2023 14:25:46 Fracture of metacarpal bone 671788046 S62.336D [id number] Richard Kaur MD [place] [address] 10/30/2023 10:29:04 10/30/2023 11:26:20 Fracture of metacarpal bone 274340626 S62.236D [id number] Richard Kaur MD [place] [address] 9 11/20/2023 10:34:09 11/20/2023 11:16:04 Fracture of neck of metacarpal bone 23470566 S62.336D [id number] Lalo Bennett MD [facility] [place] [address] [place] [address] 06/17/2024 09:41:47 06/17/2024 10:11:12 Pain in right hand 2715816552 23270 M79.641 Flexor ten osynovitis of finger 913024791 M65.841 Ulnar nerv e entrapment at elbow 656811579 G56.21 Health Concerns Section Related Observation LastModified by Organization Detai ls LastModified Time None Recorded Concern Status LastModified by Organization Details LastModified Time None Recorded Advance Directives Directive None Recorded Payers Insurance Date Sequence Insurance Name Policy Number Policy Lamar Covered Member ID Lamar Member ID Guarantor Name 06/17/2024 1 [place] [employer] [employer] [place] [employer] Sarah Kelly [id number] Sarah Kelly 12/29/2024 1 [facility] - DOS ON OR AFTER 21 (MEDICAID REPLACEMENT - HMO) Sarah Kelly [id number] Sarah Kelly 06/17/2024 1 [facility] - DOS ON OR AFTER 21 (MEDICAID REPLACEMENT - HMO) Sarah Kelly [id number] Sarah Kelly Notes Date Note Type Note [...] 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 She did go to have x-rays done at [facility] x-rays demonstrate no acute fracture lesion or [...] for initial evaluation treatment. GAEL Owens [address] [facility], [facility] [address], [place], [address], [facility] [employer] 06/17/2024 10:16:07 OBGyn Episode No OBEpisode recorded.
[2025-04-22 23:31] VITALS: BP 122/65; PULSE 71
[2025-04-22] MEDS: HYDROcodone/acetaminophen (*CRX) 5-325 MG TABLET 1 TAB PO (23:45)
[2025-04-22 23:46] VITALS: BP 122/67; PULSE 75
[2025-04-22 23:52] VITALS: PULSE 72; O2SAT 97
[2025-04-22 23:56] VITALS: BMI 30.2
--- NOTE | 2025-04-22 23:56 | OBADM ---
This patient, Sarah Kelly, admitted to the OB room Labor/Delivery/Recovery 108 for observation. Patient/family oriented to hospital policies and general routines including ID bracelet, bed and alarms, visiting hours, pain management, procedures, bathroom and other care routines, personal items, smoking policy, room service/diet, and visiting hours. Patient/Family are encouraged to report perceived risks to care and to ask questions if they do not understand what they are told or what they should do.
[2025-04-22 23:57] VITALS: PULSE 66; O2SAT 97
[2025-04-23 00:01] VITALS: BP 113/67; PULSE 67
[2025-04-23 00:02] VITALS: PULSE 69; O2SAT 97
[2025-04-23 00:07] VITALS: PULSE 71; O2SAT 98
[2025-04-23 00:12] VITALS: PULSE 72; O2SAT 98
[2025-04-23 00:16] VITALS: BP 105/63; PULSE 62; PULSE 69; O2SAT 99
[2025-04-23 00:21] VITALS: PULSE 86; TEMP 36.1; O2SAT 99
--- NOTE | 2025-04-25 10:20 | PM.OBTRLD ---
OB - Triage/Final Diagnosis Visit Information Reason for evaluation: threatened labor Comments/Additional reasons for admission: I have assessed the risk for this patient, Sarah Kelly, and determined that she would benefit from observation care.
== END 2025-04-23 00:30 | disposition home or self-care (01) ==
PROVIDERS: Admitting Provider Obstetrics & Gynecology; PCP Internal Medicine; Visit Provider Obstetrics & Gynecology
DX: O47.1 False labor at or after 37 completed weeks of gestation (principal); Z3A.37 37 weeks gestation of pregnancy
CPT/HCPCS: A9270; G0378; G0379

== ENCOUNTER 2025-04-24 15:32 | Inpatient (IN) | payer OTHER, SELFPAY ==
[2025-04-24] VITALS (11 sets, daily range): BP systolic 103–124; BP diastolic 43–84; PULSE 65–83; TEMP 36.2–36.3; O2SAT 97–99; BMI 29.0
--- OUTSIDE RECORDS SUMMARY | 2025-04-24 15:37 | XMS_ITS | Data Portability ---
Author Organization [place] [employer], Main Office Address [address] [place] [address] Care Team Providers Care Behavioral Analyst Name Role Phone LALO SINGH Primary Care Provider LALO SINGH Referring Provider Assessment Encounter Date [...] more than half the time spent in kugf-dl-utsi care. Not available 11/20/2023 10:59:13 06/17/2024 06/17/2024 [...] contact patient to schedule 2023 024 [email or web address] [facility], [address], [place], [address], 11:32:42 Procedures None recorded. Surgeries None recorded. Imaging XR, hand 2023 024 [facility] [address], [place], [address], 4 16:42:23 XR, hand 2023 024 [facility], [address] [facility], [place], [address], 4 11:27:23 XR, hand 2023 024 [facility] [place], [address], [place], [address], 4 15:21:37 XR, hand 2023 024 [email or web address] [facility], [address] [place] [address], [place], [address], 4 14:25:49 Medication Orders prednisone 10 mg tablets in a dose pack 2023 024 [email or web address] [id number], [address] [place] [address], [id number], 5 12:19:50 Patient TargetsNo targets recorded. Patient [...] No observ ation record ed. [facility] [address] [place] [address], [place], [address], 09/26/2023 19:33:46 10/02/19 24 XR, hand No observ ation record ed. [facility] [address] [facility], [place], [address], 10/02/2023 14:10:28 10/08/19 24 XR, hand No observ ation record ed. [facility] [place] [address], [place], [address], 10/08/2023 14:20:52 10/30/19 24 XR, hand No observ ation record ed. [facility] [place] [address] [facility], [place], [address], 10/30/2023 10:51:29 11/20/19 24 XR, hand No observ ation record ed. s_g[facility] [address], [place], [address], 11/20/2023 11:00:40 Result Notes None recorded. 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 2023 GAEL Owens [address], [address], [place], [address] , [facility] - S [employer] [facility] 4 10:14:36 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 Medical Equipment None Reported. Allergies Allergen ID Allergen Name Allergen Category Reaction Reaction Severity Criticality Documentation Date Start Date Code Code System Note Provider Name and Address Organization Details Recorded Time 73544 Claritin medicatio n Not available Not available Not available 10/02/202360553 6 RxNorm AMBER Mariscal, [facility] [employer] [facility] 4 13:44:25 Medications Name Sig Start Date [...] completed Not Available Not Available Not Available Caneadea 5 mg-325 mg tablet Take 1 tablet [...] Updated DateTime 10/02/2023 154.94 cm Carina Blackwell [facility] [employer] [facility] [employer] [facility] 10/02/2023 13:43:56 Date Recorded Body height Provider Name an d Address Organization Details Last Updated DateTime 10/08/2023 154.94 cm Carina Blackwell [facility] [employer] [facility] [employer] [facility] 10/08/2023 13:58:44 Date Recorded Body height Provider Name an d Address Organization Details Last Updated DateTime 10/30/2023 154.94 cm Carina Blackwell [facility] [employer] [facility] [employer] [facility] 10/30/2023 10:30:12 Date Recorded Body height Provider Name an d Address Organization Details Last Updated DateTime 11/20/2023 154.94 cm Carina Blackwell [facility] [employer] [facility] [employer] [facility] 11/20/2023 10:35:19 Date Recorded Body height Body mass index (BMI) Body mass index (BMI) [Percentile] Per age and sex Body weight Provider Name and Address Organization Details Last Updated DateTime 06/17/2024 157.48 cm 23 kg/m2 64 % 61869.64 g Melyssa Bradshaw [facility] [employer] [facility] [employer] [facility] 06/17/2024 09:45:38 Social History None recorded. Functional Status None recorded. Mental Status None recorded. Family History Relationship Description Onset Age of this Age Resolved Age Notes LastModified by Organization Details LastModified Time Maternal Grandmother Heart disease [email or web address] Not available 2022 11:06:19 Maternal Grandmother Family history of malignant neoplasm [email or web address] Not available 2022 11:06:33 Maternal Grandmother Diabetes [...] N FAILED BACK SYNDROME N STROKE/TIA N OTHER MODALITIES N ULCERS N KNEE PAIN N BENIGN PROSTATIC HYPERPLASIA N OBESITY N [...] HAVE YOU BEEN HOSPITALIZED OR SEEN IN [facility] ER IN THE PAST YEAR ? N [...] SNOMED-CT Code Diagnosis ICD10 Code Diagnosis Note [id number] Richard Kaur MD [place] [address] 09/25/2023 10:50:10 10/01/2023 09:23:07 Pain in right hand 0402805518 47572 M79.976 [id number] Richard Kaur MD [place] [address] 10/02/2023 13:35:46 10/02/2023 14:25:49 Fracture of metacarpal bone 902064690 S62.336D [id number] Richard Kaur MD [facility] [place] [address] [place] [address] 10/08/2023 13:56:10 10/08/2023 14:25:46 Fracture of metacarpal bone 609198405 S62.336D [id number] Richard Kaur MD [place] [address] 10/30/2023 10:29:04 10/30/2023 11:26:20 Fracture of metacarpal bone 005895909 S62.236D [id number] Richard Kaur MD [place] [address] 9 11/20/2023 10:34:09 11/20/2023 11:16:04 Fracture of neck of metacarpal bone 79432735 S62.336D [id number] Lalo Bennett MD [facility] [place] [address] [place] [address] 06/17/2024 09:41:47 06/17/2024 10:11:12 Pain in right hand 6264254152 32866 M79.641 Flexor ten osynovitis of finger 621377740 M65.841 Ulnar nerv e entrapment at elbow 886573858 G56.21 Health Concerns Section Related Observation LastModified by Organization Detai ls LastModified Time None Recorded Concern Status LastModified by Organization Details LastModified Time None Recorded Advance Directives Directive None Recorded Payers Insurance Date Sequence Insurance Name Policy Number Policy Lamar Covered Member ID Lamar Member ID Guarantor Name 06/17/2024 1 [place] Sarah Kelly [id number] Sarah Kelly 12/29/2024 1 [facility] - DOS ON OR AFTER 21 (MEDICAID REPLACEMENT - HMO) Sarah Kelly [id number] aSrah Kelly 06/17/2024 1 [facility] - DOS ON OR AFTER 21 (MEDICAID REPLACEMENT - HMO) Sarah Kelly [id number] Sarah Kelly Notes Date Note Type Note [...] 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 She did go to have x-rays done at [facility] x-rays demonstrate no acute fracture lesion [...] for initial evaluation treatment. GAEL Owens [address] [facility], [facility] [address], [place], [address], [facility] - [facility] [employer] 06/17/2024 10:16:07 OBGyn Episode No OBEpisode recorded.
--- OUTSIDE RECORDS SUMMARY | 2025-04-24 15:37 | XMS_ITS | Clinical Summary ---
Author Organization [facility] Address [address] [place] [address] Care Team Providers Care Rn Telehealth Name Role Phone Unavailable Primary Care Provider [...]
--- OUTSIDE RECORDS SUMMARY | 2025-04-24 15:37 | XMS_ITS | Data Portability ---
Author Organization [facility] Address [address] [place] [address] Assessment No assessment recorded. Plan of Treatment [...] SNOMED-CT Code Diagnosis ICD10 Code Diagnosis Note [id number] MARCI Valencia Henderson [address] [address] 09/30/2024 17:00:48 10/05/2024 15:45:07 Left without being seen [id number] 9102 Z53.21 Health Concerns Section Related Observation LastModified by Organization Detai ls LastModified Time None Recorded Concern Status LastModified by Organization Details LastModified Time None Recorded Advance Directives Directive None Recorded Payers Insurance Date Sequence Insurance Name Policy Number Policy Lamar Covered Member ID Lamar Member ID Guarantor Name 10/16/2024 1 [facility] ON OR AFTER 03/29/21 (MEDICAID REPLACEMENT - HMO) Sarah Kelly [id number] Sarah Kelly OBGyn Episode No OBEpisode recorded.
--- OUTSIDE RECORDS SUMMARY | 2025-04-24 15:37 | XMS_ITS | Clinical Summary ---
Author Organization [facility] Address [address] [place] [address] Care Team Providers Care Seo Coordinator Name Role Phone Unavailable Primary Care Provider Unavailabl e Source Comments [facility],non-owned Affiliates and Associated Physician Practices is amultiple site organization consisting of ambulatory clinics and hospital sitesin [place], [place], [place] and [place]. This disclosure is being madepursuant to the Care Everywhere program and may not contain all information available regarding this patient. Last updated 18.[facility] Allergies Active Allergy Reactions Criticality Noted Date [...] - 04/20/2025 11:59 PM CDT Hospital Encounter [facility] [address] [place] [address] Umesh Nicolas MD Discharge Disposition: Home or Self Care 04/15/2025 2:33 PM CDT - 04/15/2025 11:59 PM CDT Hospital Encounter [facility] [address] [place] [address] Fabian Cunningham MD Discharge Disposition: Home or Self Care 04/15/2025 2:09 PM CDT - 04/15/2025 2:32 PM CDT Hospital Encounter [facility] [address] [place] [address] Fabian Cunningham MD [employer] Discharge Disposition: Home or Self Care 04/06/2025 8:36 AM CDT - 04/06/2025 11:59 PM CDT Hospital Encounter [facility] [address] [place] [address] Jolly Ramos MD Discharge Disposition: Home or Self Care 04/06/2025 8:36 AM CDT - 04/06/2025 11:59 PM CDT Hospital Encounter [facility] [address] [place] [address] Jolly Ramos MD Discharge Disposition: Home or Self Care 04/06/2025 8:15 AM CDT - 04/06/2025 8:35 AM CDT Hospital Encounter [facility] [address] [place] [address] Jolly Ramos MD Discharge Disposition: Home or [...] Description 04/26/2025 1:00 PM CDT Hospital Encounter [facility] [address] [place] [address] 04/29/2025 1:00 PM CDT Hospital Encounter [facility] [address] [place] [address] 05/03/2025 1:00 PM CDT Appointment [facility] [address] [place] [address] 05/06/2025 1:00 PM CDT Appointment [facility] [address] [place] [address] Health Maintenance Due Date Last Done Comments [...] gestational diabetes mellitus (GDM) in third trimester ([facility]) SONOGRAM - COMPLETE Routine 04/06/2025 8 :32 AM CDT Gestational diabetes mellitus (GDM) in third trimester, gestational diabetes method of control unspecified ([facility]) Tobacco use affecting in third trimester, antepartum ([facility]) Marijuana use during ([facility]) Encounter for anatomic survey ([facility]) Encounter for ultrasound to assess growth ([facility]) Major depressive disorder, remission status unspecified, [...] diabetes mellitus in , insulin controlled Procedures 74902: US Uterus Limited 88756: Biophysical Profile W NST Octro PACS Anatomical Region Laterality Modality Other 04/20/2025 12:3 3 PM CDT Mari Sen MD [facility] ORDERABLES Edited Result - Final * Sonogram [...] 5 lb 4 oz EFW by Hadlock ([id number]-FL) appropriate Growth Overview Exam date [place] BPD [...] view. RVOT view. LVOT view. 3-vessel view. 6-vbiydr-jltmyvr view. Situs. Aortic arch view. Bicaval view. [...] See separate visit notes. Coding ====== Procedures 80269: US Preg Uterus Detailed [employer] PACS Anatomical Region Laterality Modality Other 04/06/2025 8:32 AM CDT Mari Sen MD [facility] ORDERABLES Edited Result - Final * GLUCOSE [...] Reactive Non Reactive 2022 3:23 PM CDT [facility] Blood BLOOD SPECIMEN / Unknown Venipuncture / Unknown 2022 6:54 AM CDT 2022 8:59 AM CDT Narrative [facility] - 2022 3:23 PM CDT No Laboratory evidence of HIV infection. Cinthya Julian MD LAB - CHEMISTRY ORDERABLES Final Result [facility] [address] [place] [address] * CHLAMYDIA + GC AMPLIFIED PROBE (STL) (05/16/2022 8:45 PM CDT) Chlamydia Amplified Probe Negative Negative 2022 1:15 PM CDT [facility] GC Amplified Probe Negative Negative 2022 1:15 PM CDT [facility] Microbiology URINE / Unknown 05/16/2022 8 :45 PM CDT 05/16/2022 8:45 PM CDT Narrative [facility] - 2022 1:15 PM CDT Results based on detection/no detection of ribosomal RNA by amplified method. Cinthya Julian MD LAB - MICROBIOLOGY ORDERABL ES Final Result [facility] [address] [place] [address], [facility] [phone] from Last 3 Months or Most Recently Relevant to Health Maintenance Insurance [facility] Advance Directives * Full Code (Latest Code Status on File) Date Activated Date Inactivated Comments 05/15/2022 2:16 PM 05/18/2022 8:59 PM
[2025-04-24 16:29] LABS: Hematocrit 30.3 % (37.0-47.0); Hemoglobin 10.2 g/dL (12.0-15.0); Immature Granulocyte Percent A 3.3 % (0-0.5); Lymphocytes Absolute Auto 2.84 K/mm3 (0.9-3.2); Mean Corpuscular HGB Conc 33.7 g/dl (32-36); Mean Corpuscular Hemoglobin 30.1 pg (26-34); Mean Corpuscular Volume 89.4 fl (80-100); Nucleated Red Blood Cells Absolute Auto 0.000 K/mm3 (0.0-0.012); Nucleated Red Blood Cells Perc 0.0 % (0.0-0.2); Platelet Count Result 304 k/mm3 (150-375); Red Blood Count 3.39 M/mm3 (4.2-5.4); White Blood Count 11.8 K/mm3 (4.5-10.0)
--- NOTE | 2025-04-24 16:33 | LDADM ---
This patient, Sarah Kelly, was admitted to Labor/Delivery/Recovery 108 on 04/24/25 at 15:32. Plans for labor, pain management and were discussed with patient. Patient/family oriented to hospital policies and general routines including ID bracelet, bed and alarms, visiting hours, pain management, procedures, bathroom and other care routines, personal items, smoking policy, room service/diet and guest tray routines, security routines, and visiting hours. Patient/Family are encouraged to report perceived risks to care and to ask questions if they do not understand what they are told or what they should do. See OBIX for further documentation.
[2025-04-24] MEDS: DINOPROSTONE 10 MG VAG INSERT VAGINAL (16:49)
[2025-04-24 17:10] LABS: Syphilis IgG/IgM Antibody Non-Reactive (Nonreactive)
[2025-04-24] MEDS: ONDANSETRON INJ 4 MG/2 ML VIAL IV PUSH (22:40)
[2025-04-25] VITALS (263 sets, daily range): BP systolic 81–141; BP diastolic 44–113; PULSE 30–148; RESP 15; TEMP 36.2–36.6; O2SAT 86–100
[2025-04-25] MEDS: LACTATED RINGERS 1,000 ML 125 ML IV CONT ×3 (05:56→21:21)
[2025-04-25] MEDS: OXYTOCIN 30 UNITS/NS 500 ML 30 UNITS/500 ML BAG IV CONT (05:57)
--- NOTE | 2025-04-25 07:41 | PM.IMHP ---
H&P: HPI History of Present Illness Date/Time: 04/25/25 07:41 Chief Complaint: Intrauterine at term Gestational diabetes Narrative: 19-year-old at 38 weeks 0 days who presents for induction of labor for gestational diabetes. Patient has been poorly compliant. Patient has not provided blood sugar logs since being diagnosed with gestational diabetes. Patient has met with MFM. MFM could not provide insulin recommendations due to lack of blood sugar data. Recommended delivery at 38 weeks. Review of Systems Cardiovascular: Cardiovascular: Denies chest pain, Denies leg edema, Denies palpitations, Denies dyspnea and Denies dyspnea on exertion Respiratory: Respiratory: Denies cough, Denies dyspnea and Denies dyspnea on exertion Gastrointestinal: Gastrointestinal: Denies abdominal pain, Denies constipation, Denies diarrhea, Denies nausea and Denies vomiting Genitourinary: Genitourinary: Denies hematuria, Denies urinary frequency, Denies dysuria, Denies pelvic pain, Denies urinary incontinence and Denies vaginal discharge Neurologic: Reports system reviewed and no additional complaints, except as documented Psychiatric: Psychiatric: Reports no additional psychiatric complaints Endocrine: Endocrine: Denies palpitations PMFSH Past Medical History Medical History Encounter for screening examination for sexually transmitted disease Suppression of menses Depression Family History Family History Father Diabetes mellitus Cerebrovascular accident Grandparent Diabetes mellitus Family history of malignant neoplasm of cervix Acute myocardial infarction High cholesterol Social History Social History Smoking status: Current every day smoker Tobacco type: e-cigarettes/vaping Second hand tobacco smoke exposure: No Alcohol intake: never Substance use: current Substance use type: marijuana Do You Feel Safe in your Home?: Yes Lack of Transportation: No Lack of Food: Never True Current Housing: I Have Housing Concerned About Future Housing: No Difficulty Paying Gas/Electric Bills: No Difficulty Paying for Meds: No Currently Unemployed: YES Education: High School Diploma/GED Difficulty w/ Childcare or Family Care: No Living arrangements: with family Occupation/Education: unemployed Gender identity (if verbalized by the patient): Female Spiritual care concerns: No Meds Home Medications and Allergies Home Medications ?Medication ?Instructions ?Recorded ?Confirmed ?Type ferrous sulfate 325 mg (65 mg 325 mg PO DAILY 03/01/25 04/24/25 History iron) tablet (Feosol) hydroxyzine HCl 25 mg tablet 25 mg PO TID PRN anxiety #60 tabs 04/12/25 04/24/25 Rx triamcinolone acetonide 0.025 % 1 applic topical BID #60 mL 04/14/25 04/24/25 Rx lotion Allergies Allergy/AdvReac Type Severity Reaction Status Date / Time loratadine (From Claritin) Allergy Mild Hives Verified 04/24/25 16:05 Vital Signs Vital Signs - 24 hr 04/24/25 16:25 04/24/25 16:30 04/24/25 17:01 Temperature 97.1 F L Pulse Rate 73 75 Blood Pressure 116/65 118/74 Pulse Oximetry Oxygen Delivery Room Air 04/24/25 18:01 04/24/25 19:00 04/24/25 19:01 Temperature 97.4 F L Pulse Rate 78 81 Blood Pressure 117/79 118/84 Pulse Oximetry Oxygen Delivery 04/24/25 20:02 04/24/25 21:01 04/24/25 22:01 Temperature Pulse Rate 69 83 75 Blood Pressure 104/43 L 124/80 121/70 Pulse Oximetry Oxygen Delivery 04/24/25 23:01 04/24/25 23:54 04/24/25 23:59 Temperature Pulse Rate 65 Blood Pressure 103/56 L Pulse Oximetry 97 99 Oxygen Delivery 04/25/25 00:01 04/25/25 00:04 04/25/25 00:09 Temperature Pulse Rate 72 Blood Pressure 114/66 Pulse Oximetry 95 97 Oxygen Delivery 04/25/25 00:14 04/25/25 00:16 04/25/25 00:21 Temperature Pulse Rate Blood Pressure Pulse Oximetry 98 97 98 Oxygen Delivery 04/25/25 00:26 04/25/25 00:30 04/25/25 00:31 Temperature 97.1 F L Pulse Rate Blood Pressure Pulse Oximetry 100 98 Oxygen Delivery 04/25/25 00:36 04/25/25 00:41 04/25/25 00:46 Temperature Pulse Rate Blood Pressure Pulse Oximetry 98 97 100 Oxygen Delivery 04/25/25 00:51 04/25/25 01:01 04/25/25 02:01 Temperature Pulse Rate 67 71 Blood Pressure 115/64 116/51 L Pulse Oximetry 100 Oxygen Delivery 04/25/25 03:01 04/25/25 04:01 04/25/25 04:30 Temperature 97.1 F L Pulse Rate 63 65 Blood Pressure 102/56 L 109/69 Pulse Oximetry Oxygen Delivery 04/25/25 05:01 04/25/25 06:01 04/25/25 06:11 Temperature 97.4 F L Pulse Rate 63 64 Blood Pressure 119/67 109/60 Pulse Oximetry Oxygen Delivery 04/25/25 07:00 Temperature Pulse Rate 66 Blood Pressure 105/66 Pulse Oximetry Oxygen Delivery Exam Const: General: no acute distress Eyes: EOM: EOMs intact bilaterally Neck: Neck: supple Thyroid: thyroid normal Chest: Breast/axilla inspection: normal inspection of the breasts Breast/axilla palpation: normal palpation of the breasts, normal palpation of the axillae and no axillary lymphadenopathy Resp: Effort & Inspection: normal respiratory effort Auscultation: clear to auscultation bilaterally Cardio: Rate: regular rate Rhythm: regular rhythm GI: Inspection: non-distended and other (Gravid) GI Palp: Yes Soft to palpation, No Tenderness to palpation present (GI) and No Guarding due to palpation present (GI) Auscultation: normal bowel sounds : Speculum Exam - Vagina: No vaginal bleeding OB/external & speculum: external exam normal; No vaginal bleeding Skin: General skin exam: normal color and no rashes or lesions noted Neuro: Cognition (Neuro): normal cognition Speech: normal speech Extrem: General: normal to inspection Psych: Mental Status: mental status grossly normal Affect: normal affect H&P: Results Labs Labs: Short CBC 04/24/25 Range/Units 16:20 WBC 11.8 H (4.5-10.0) K/mm3 Hgb 10.2 L (12.0-15.0) g/dL Hct 30.3 L (37.0-47.0) % Plt Count 304 (150-375) k/mm3 Assessment and Plan Assessment and plan (1) Supervision of high risk , unspecified, third trimester: Code(s): O09.93 - Supervision of high risk , unspecified, third trimester Status: Acute Assessment and Plan: 19-year-old at 38 weeks 0 days labs reviewed Rh positive GBS negative (2) Gestational diabetes: Code(s): O24.419 - Gestational diabetes mellitus in , unspecified control Status: Acute Assessment and Plan: Non compliant with gestational diabetes Patient would not provide blood sugar logs MFM recommend delivery at 38 weeks Last growth scan on 04/06/2025 showed EFW in the 20th percentile Patient has been compliant with NST and BPP Will plan for Cervidil induction of labor (3) Bipolar disorder: Qualifiers: Active/Remission status: remission status unspecified Qualified Code(s): F31.9 - Bipolar disorder, unspecified Code(s): F31.9 - Bipolar disorder, unspecified Status: Acute Assessment and Plan: on Lexapro (4) Marijuana dependence: Code(s): F12.20 - Cannabis dependence, uncomplicated Status: Acute (5) Tobacco smoking affecting : Code(s): O99.330 - Smoking (tobacco) complicating , unspecified trimester Status: Acute
--- NOTE | 2025-04-25 09:01 | WPDANESEPPF ---
Anes - Initial Pre Proc Eval Procedure: Labor Epidural Date/Time: 04/25/25 09:01 Surgeon: Jonny Manuel MD Pre Op Diagnosis: IOL Patient Data Age: 19 Gender: F Height: 1.57 m Weight: 72 kg Last Vital Signs Temp 36.3 C L 04/25/25 06:11 Pulse 76 04/25/25 08:01 BP 119/75 04/25/25 08:01 Pulse Ox 100 04/25/25 00:51 O2 Del Method Room Air 04/24/25 16:25 Allergies Allergy/AdvReac Type Severity Reaction Status Date / Time loratadine (From Claritin) Allergy Mild Hives Verified 04/24/25 16:05 Home Medications ?Medication ?Instructions ?Recorded ?Confirmed ?Type ferrous sulfate 325 mg (65 mg 325 mg PO DAILY 03/01/25 04/24/25 History iron) tablet (Feosol) hydroxyzine HCl 25 mg tablet 25 mg PO TID PRN anxiety #60 tabs 04/12/25 04/24/25 Rx triamcinolone acetonide 0.025 % 1 applic topical BID #60 mL 04/14/25 04/24/25 Rx lotion Laboratory Tests 04/24/25 04/24/25 04/24/25 16:20 16:31 20:30 WBC 11.8 H K/mm3 (4.5-10.0) RBC 3.39 L M/mm3 (4.2-5.4) Hgb 10.2 L g/dL (12.0-15.0) Hct 30.3 L % (37.0-47.0) MCV 89.4 fl (80-100) MCH 30.1 pg (26-34) MCHC 33.7 g/dl (32-36) RDW 14.0 % (11.5-14.5) Plt Count 304 k/mm3 (150-375) MPV 10.0 fl (7.4-10.4) Immature Gran % (Auto) 3.3 H % (0-0.5) Neut % (Auto) 62.7 % (45.5-73.1) Lymph % (Auto) 24.0 % (18.3-44.2) Tillman % (Auto) 8.8 H % (2.6-8.5) Eos % (Auto) 0.7 % (0-4.4) Baso % (Auto) 0.5 % (0.2-1.2) Lymph # (Auto) 2.84 K/mm3 (0.9-3.2) Tillman # (Auto) 1.0 H K/mm3 (0.1-0.6) Eos # (Auto) 0.1 K/mm3 (0-0.3) Baso # (Auto) 0.1 K/mm3 (0.0-0.1) Abs Immat Gran (auto) 0.39 H K/mm3 (0.00-0.031) Absolute Neuts (auto) 7.4 H K/mm3 (1.3-6.7) Absolute Nucleated RBC 0.000 K/mm3 (0.0-0.012) Nucleated RBC % 0.0 % (0.0-0.2) POC Capillary Glucose 85 mg/dl 93 mg/dl (65-105) (65-105) Syphilis IgG/IgM Ab Non-reactive (Nonreactive) Blood Type O Positive Antibody Screen Negative 04/25/25 04/25/25 00:51 04:32 WBC RBC Hgb Hct MCV MCH MCHC RDW Plt Count MPV Immature Gran % (Auto) Neut % (Auto) Lymph % (Auto) Tillman % (Auto) Eos % (Auto) Baso % (Auto) Lymph # (Auto) Tillman # (Auto) Eos # (Auto) Baso # (Auto) Abs Immat Gran (auto) Absolute Neuts (auto) Absolute Nucleated RBC Nucleated RBC % POC Capillary Glucose 108 H mg/dl 83 mg/dl (65-105) (65-105) Syphilis IgG/IgM Ab Blood Type Antibody Screen : gestational age (ANITRA 05/08/25) Patient hx anesthesia problems: none Family hx anesthesia problems: none Results Review: All pre-operative results and documents have been reviewed as part of the pre-operative evaluation. [facility] Past Medical History Medical History Encounter for screening examination for sexually transmitted disease Suppression of menses Depression Family History Family History Father Diabetes mellitus Cerebrovascular accident Grandparent Diabetes mellitus Family history of malignant neoplasm of cervix Acute myocardial infarction High cholesterol Social History Social History Smoking status: Current every day smoker Tobacco type: e-cigarettes/vaping Second hand tobacco smoke exposure: No Alcohol intake: never Substance use: current Substance use type: marijuana Do You Feel Safe in your Home?: Yes Lack of Transportation: No Lack of Food: Never True Current Housing: I Have Housing Concerned About Future Housing: No Difficulty Paying Gas/Electric Bills: No Difficulty Paying for Meds: No Currently Unemployed: YES Education: High School Diploma/GED Difficulty w/ Childcare or Family Care: No Living arrangements: with family Occupation/Education: unemployed Gender identity (if verbalized by the patient): Female Spiritual care concerns: No Anes - Eval Final PreProcedure Day of Procedure 04/25/25 09:01 Patient weight: overweight Heart: regular rate and rhythm Lungs: normal air movement Airway: Mallampati scale class II Neurological: alert and oriented Last oral intake: >/= 8 hours ASA classification: III Emergent: no Anesthetic plan: proceed Anesthesia type and monitoring: regional epidural and standard monitoring Results Review: All pre-operative results and documents have been reviewed as part of the pre-operative evaluation. Informed Consent: The patient's anesthetic plan and its attendant risks and benefits were discussed with the patient/family/POA. Questions were solicited and answers provided to the satisfaction of the patient/family/POA.
[2025-04-25] MEDS: ACETAMINOPHEN 500 MG TABLET 1000 MG PO ×2 (10:32→18:55)
[2025-04-25] MEDS: ONDANSETRON INJ 4 MG/2 ML VIAL IV PUSH ×3 (12:01→23:57)
[2025-04-25] MEDS: diphenhydrAMINE HCL ELIXIR 12.5 MG/5 ML UDC PO (19:00)
[2025-04-26] VITALS (313 sets, daily range): BP systolic 56–131; BP diastolic 45–87; PULSE 25–261; RESP 14; TEMP 36.4–37.3; O2SAT 74–100
[2025-04-26] MEDS: ONDANSETRON INJ 4 MG/2 ML VIAL IV PUSH (06:52)
--- NOTE | 2025-04-26 07:42 | PM.OBPNLAB ---
Pain Control Date/time seen: 04/26/25 07:42 Pain control: epidural Pelvic Exam Dilation (cm): 3 Effacement (%): 70 station: -2 Amniotic membrane status: Intact Contractions Monitor mode: External Contraction intensity: Moderate Status status: Category l Assessment and Plan Assessment: induction ongoing Comments: AROM for copious amounts of clear fluid. IUPC placed. Will continue pitocin augmentation
[2025-04-26] MEDS: LACTATED RINGERS 1,000 ML 125 ML IV CONT (09:27)
[2025-04-26] MEDS: CALCIUM CARBONATE (TUMS) 500 MG (200 MG ELEMENTAL) PO (11:13)
[2025-04-26] MEDS: DEXTROSE 5%/LACTATED RINGERS 1,000 ML 125 ML IV CONT (13:05)
--- NOTE | 2025-04-26 20:30 | P.PCNOB_ITS ---
OB - Vaginal Delivery Note Procedure Delivery date: 04/26/25 Events: Gestational Diabetes Induction method: Per Cervidil Protocol Delivery augmentation: Rupture of Membranes and Pitocin Delivery monitor: External FHT and Internal Uterine Route of delivery: Episiotomy description: None Laceration Description: None Specimen: No Quantitative Blood Loss (ml): 150 Anesthesia type: Epidural Disposition: Floor Complications: No immediate complications Narrative: Patient pushed for a spontaneous vaginal delivery. The fetus was delivered atraumatically and placed on the maternal abdomen. The cord was clamped and cut after 1 minute of life. The cord was double clamped and cut and a segment of cord was collected for cord gases. Cord blood was collected for blood type and Coomb's testing. The placenta delivered spontaneously and was noted to be intact. The perineum was inspected and noted to be intact. The uterus palpated firm with good hemostasis noted. and mom were stable in the delivery room. [place] Baby Date of : 04/26/25 Time of : 20:19 Gestational Age by Date: 38 gender: Female presentation: vertex position: Right Occiput Anterior Placenta delivery description: Spontaneous Cord Vessel Description: 3 Vessels score one minute: 8 score five minutes: 9
[2025-04-26] MEDS: OXYTOCIN 30 UNITS/NS 500 ML 30 UNITS/500 ML BAG 125 UNITS IV CONT (20:56)
[2025-04-26] MEDS: IBUPROFEN 600 MG TABLET PO (21:16)
[2025-04-26] MEDS: ACETAMINOPHEN 325 MG TABLET 650 MG PO (23:09)
--- NOTE | 2025-04-26 23:23 | OBPPTRN ---
Patient transferred to post room #280 via wheelchair. Support person present. Oriented to unit, room, information board, rooming in, admission packet and security measures. Patient verbalizes understanding.
[2025-04-27 04:30] VITALS: BP 111/70; PULSE 84; RESP 14; TEMP 37.2; O2SAT 100
[2025-04-27] MEDS: ACETAMINOPHEN 325 MG TABLET 650 MG PO ×2 (04:44→11:16)
[2025-04-27] MEDS: IBUPROFEN 600 MG TABLET PO ×2 (04:44→13:06)
[2025-04-27 05:17] LABS: Hematocrit 28.0 % (37.0-47.0); Hemoglobin 9.2 g/dL (12.0-15.0)
[2025-04-27 09:00] VITALS: BP 114/70; PULSE 66; RESP 18; TEMP 36.6; O2SAT 100
--- NOTE | 2025-04-27 09:39 | P.PNOB_ITS ---
OB - PN: Subj Subjective Date/time seen: 04/27/25 09:39 Patient comments: no complaints, pain well controlled and tolerating diet Falls [place] feeding status: exclusively breast feeding Narrative: patient doing well this AM. No complaints. Pain is well controlled. She reports minimal bleeding. She is ambulating and voiding without difficulty. She is tolerating PO. She denies N/V, fever, chills. OB - PN: Obj Data Labs 04/27/25 04:50 Labs: Laboratory Results - last 24 hr 04/26/25 04/26/25 04/26/25 12:07 12:37 16:20 Hgb Hct POC Capillary Glucose 65 61 L 79 04/26/25 04/27/25 19:48 04:50 Hgb 9.2 L Hct 28.0 L POC Capillary Glucose 84 OB - PN A/P Plan day: 1 Plan: routine care Comments: patient doing well H/H stable continue routine care Time Spent With Patient Time: Total time spent is greater than 50% in coordination of care (as documented) at patient's floor/unit and/or counseling patient: Time with patient: less than 15 minutes Review of Systems 2 Review of Systems: All systems reviewed & are unremarkable except as noted in HPI and below Exam 2 Const: General: comfortable and no acute distress Resp: Effort & Inspection: normal respiratory effort Cardio: Rate: regular rate GI: GI Palp: Yes Soft to palpation and No Tenderness to palpation present (GI) Auscultation: normal bowel sounds Other: fundus firm and below umbilicus. Psych: Affect: normal affect
--- NOTE | 2025-04-27 10:29 | WPDANLDPN2 ---
Anes-Prog Note L&D Date/Time: 04/27/25 10:29 Comfortable throughout: labor and delivery Neuraxial method: epidural Epidural/Spinal procedure site: clean & non-tender Neuro status: Neuro function grossly intact. Cardiovascular status: normal Respiratory status: normal Airway patency: baseline Mental status: baseline Post-Op hydration status: normal Vital Signs: Last Vital Signs Temp 36.6 C 04/27/25 09:00 Pulse 66 04/27/25 09:00 Resp 18 04/27/25 09:00 BP 114/70 04/27/25 09:00 Pulse Ox 100 04/27/25 09:00 O2 Del Method Room Air 04/24/25 16:25 Pain score (VAS): 2 I/O: Intake & Output 04/26/25 04/27/25 04/27/25 23:59 07:59 15:59 Intake Total 100 118 Balance 100 118 Post-procedural complaints: none Patient feedback: Patient satisfied with anesthetic care.
[2025-04-27] MEDS: DOCUSATE SODIUM 100 MG CAPSULE PO (11:17)
[2025-04-27 12:05] VITALS: BP 113/82; PULSE 69; RESP 16; TEMP 36.7; O2SAT 99
--- NOTE | 2025-04-27 14:13 | PCCCNOTE ---
Care Coordination Consult: Met with pt. and family at bedside. Pt. lives at home with her mother. Pt.'s mother, aunt, father, and sig other at bedside. This is pt.'s first child. Pt. has significant support at home with family. Pt. has all supplies including a car seat, crib/basinetts, clothing, diapers etc. Patient is interested in [facility] services so information for the [place] office was provided. Pt. was encouraged to follow up with her PMD at discharge as well as OB for all needs including behavioral health and follow up from the gestational diabeties diagnosis she received while . Per RN pt. and baby doing well and not requiring any type of diabetic medication. Pt. is interested in a breast pump and RN aware. Pt. and family deny any other case management needs.
--- NOTE | 2025-04-27 14:30 | PC.NURSE ---
Patient requested an insurance breast pump. She was provided with a Zomee pump and shown proper care and usage. She has the user manual for further reference. Discussed pumping schedule for milk production. Breast milk storage times given. Patient verbalized understanding and will request assistance with any other questions or concerns. Primary RN updated.
--- NOTE | 2025-04-27 16:12 | PM.OBDSVD ---
DS: Admitting Diagnosis Discharge Date 04/28/25 Admitting Diagnosis intrauterine at term gestational diabetes DS: Discharge Diagnosis Discharge Diagnosis (1) Normal vaginal delivery: Code(s): O80 - Encounter for full-term uncomplicated delivery Status: Acute OB - DS: Summary OB Procedures : None OB Procedures Intrapartum: Spontaneous Vag Delivery OB Procedures: : None Peripartum Data Laceration Description: None Episiotomy description: None Status at Discharge Functional status at discharge: independent ambulation Overall status at discharge: patient is back to baseline Time Spent with Patient Time attestation: Total time spent providing and/or coordinating discharge services: Time spent: Less than 30 minutes Exam Const: General: comfortable and no acute distress Resp: Effort & Inspection: normal respiratory effort Auscultation: clear to auscultation bilaterally Cardio: Rate: regular rate GI: GI Palp: Yes Soft to palpation Auscultation: normal bowel sounds Other: Fundus firm below umbilicus Psych: Appearance: grossly normal Mental Status: mental status grossly normal Affect: normal affect DS: Data Data Completed and Pending Labs on day of discharge: Labs from last 24 hours 04/27/25 04/26/25 04/26/25 04:50 19:48 16:20 Hgb 9.2 L Hct 28.0 L POC Capillary Glucose 84 79 Discharge Plan Discharge Discharging Clinician: Jonny Manuel Patient Disposition: Home Activity: as tolerated and pelvic rest Diet: regular Patient Instructions: Antibiotic Form, Vaginal Delivery (DC) Patient Language: Martiniquais Stand Alone Forms: General Discharge Information Follow-up/Referrals: Jonny Manuel MD [Physician] - Discharge Medications: New ibuprofen 600 mg tablet 600 mg PO Q6H PRN (Reason: pain) Qty: 30 0RF acetaminophen 500 mg tablet 500 mg PO Q6H PRN (Reason: pain) Qty: 30 0RF Continued hydroxyzine HCl 25 mg tablet 25 mg PO TID PRN (Reason: anxiety) Qty: 60 0RF ferrous sulfate [Feosol] 325 mg (65 mg iron) tablet 325 mg PO DAILY escitalopram oxalate 10 mg tablet 10 mg PO DAILY triamcinolone acetonide 0.025 % lotion 1 applic topical BID Qty: 60 1RF Date of admission: 04/24/25 15:32 Primary Care Provider: Yablonsky,Saturnino B. Admitting Provider: Jonny Manuel Attending physician on admission: Jonny Manuel Condition: Stable
[2025-04-27 20:30] VITALS: BP 120/73; PULSE 69; RESP 16; TEMP 36.6; O2SAT 99
[2025-04-28 04:33] VITALS: BP 102/62; PULSE 79; RESP 14; TEMP 37.2; O2SAT 100
[2025-04-28] MEDS: ACETAMINOPHEN 325 MG TABLET 650 MG PO (04:34)
[2025-04-28] MEDS: IBUPROFEN 600 MG TABLET PO (04:34)
[2025-04-28 08:05] VITALS: BP 115/69; PULSE 65; RESP 18; TEMP 36.8; O2SAT 98
[2025-04-28] MEDS: DOCUSATE SODIUM 100 MG CAPSULE PO (08:14)
[2025-04-28] MEDS: ESCITALOPRAM OXALATE 10 MG TABLET PO (08:14)
--- NOTE | 2025-04-28 09:15 | PC.NURSE ---
Consulted with mother concerning needs and she shared her ability to independently feed baby with a bottle. As far as using the breast pump, instructions given on cleaning, care, usage, that there should be no pain, pumping schedule for milk production, collection, and storage of human milk. Advised to pump for comfort and nipple stretching/stimulation for adequate milk production every 3 hours (8 times in 24 hours) 1-2 times at night. Mother encouraged to record the pumping schedule on the feeding sheet.?Mother voiced understanding of the education shared along with mom/baby guide and the pump measurement, flange fit handout for additional resource information. Mother is feeding appropriately for growth of infant and understands stimulating to eat if needed. Infant has had appropriate feedings in the last 24 hours meets the outcomes for weight, output, blood sugar and jaundice at this time. Reinforced understanding of milk production, transition of milk, signs of adequate intake, transition of stool, prevention/relief of engorgement, plugged ducts, mastitis, watching for feeding cues, community resources, and when to call a provider using the resource of the feeding sheet along with the mom and baby guide. Mother voiced understanding of the information shared, is confident to continue effectively feed her at home, when to call for assistance, denies any additional assistance or education at this time. Reported to the Primary RN.
--- NOTE | 2025-04-28 11:01 | PC.NURSE ---
Patient viewed the discharge video Mother & Baby Care, The First Two Weeks. Patient was given the opportunity and encouraged to ask questions. Patient verbalized understanding of information shared and has been given the mother/baby guide for home reference.
[2025-04-29 09:30] VITALS: BP 125/70; PULSE 62; RESP 18; TEMP 37; O2SAT 100
== END 2025-04-28 12:11 | disposition home or self-care (01) | DRG 560 ==
LOC: ANHLDR 15:35 → ANHOB2 04-26 22:50
PROVIDERS: Admitting Provider Student in an Organized Health Care Education/Training Program; PCP Internal Medicine; Visit Provider Student in an Organized Health Care Education/Training Program
DX: O24.429 Gestational diabetes mellitus in childbirth, unspecified control (principal); Z37.0 Single live birth; Z3A.38 38 weeks gestation of pregnancy; O99.344 Other mental disorders complicating childbirth; F31.9 Bipolar disorder, unspecified; O99.324 Drug use complicating childbirth; F12.20 Cannabis dependence, uncomplicated; O99.334 Smoking (tobacco) complicating childbirth
CPT/HCPCS: 36415; 82948; 85014; 85018; 85025; 86593; 86850; 86900; 86901; A9270; J2405; J2590; J2795; J7120; J7121

== ENCOUNTER 2025-08-12 12:46 | Outpatient (CLI) | payer OTHER, SELFPAY ==
[2025-08-12 13:17] LABS: Hematocrit 36.9 % (37.0-47.0); Hemoglobin 11.9 g/dL (12.0-15.0); Mean Corpuscular HGB Conc 32.2 g/dl (32-36); Mean Corpuscular Hemoglobin 27.4 pg (26-34); Mean Corpuscular Volume 85.0 fl (80-100); Platelet Count Result 346 k/mm3 (150-375); Red Blood Count 4.34 M/mm3 (4.2-5.4); White Blood Count 7.5 K/mm3 (4.5-10.0)
[2025-08-12 14:16] LABS: Hepatitis B Surface Antigen Negative (Negative)
[2025-08-13 07:09] LABS: Varicella-Zoster Ab, IgG Reactive (Non Reactive)
[2025-08-15 11:09] LABS: Parvovirus B19, IgG 6.0 index (0.0-0.8); Parvovirus B19, IgM 0.1 index (0.0-0.8)
== END 2025-08-12 12:47 | disposition home or self-care (01) ==
LOC: ANHLAB 12:50
PROVIDERS: PCP Internal Medicine; Visit Provider Student in an Organized Health Care Education/Training Program
DX: N91.2 Amenorrhea, unspecified (principal)
CPT/HCPCS: 36415; 84702; 85027; 86747; 86787; 87340